=== PATIENT | female | born 1985 | race Caucasian/White ===

== ENCOUNTER 2017-05-05 11:12 | Inpatient (IN) | payer OTHER, SELFPAY ==
[2017-05-05 11:14] VITALS: BP 161/91; PULSE 91; RESP 17; TEMP 37.1; O2SAT 95; BMI 75.6
--- NOTE | 2017-05-05 12:03 | EKG12_ITS ---
Test Reason : Blood Pressure : / mmHG Vent. Rate : 085 BPM Atrial Rate : 085 BPM P-R Int : 136 ms QRS Dur : 102 ms QT Int : 376 ms P-R-T Axes : -11 057 -09 degrees QTc Int : 447 ms Normal sinus rhythm Nonspecific ST and T wave abnormality Abnormal ECG Confirmed by BALTA GRANT, KARL ([id number]), film or videotape editor JIM PADILLA ([id number] on 05/10/2017 3:21:04 PM Referred By: KAY Confirmed By:KARL GIFFORD MD
--- NOTE | 2017-05-05 12:05 | VDLE_ITS ---
Reason For Study: SWELLING RIGHT GSV is normal. CFV is compressible, spontaneous, phasic, competent and demonstrates normal augmentation. FV is compressible, spontaneous, phasic, competent and demonstrates normal augmentation. POP V is compressible, spontaneous, phasic, competent and demonstrates normal augmentation. T/P Trunk is compressible. Rt PTV and PeroV were compressible distally at ankle. The remainder of the calf veins were not visualized. Procedure Exam performed portable in ED. Technically difficult study due to body habitus/edema. A preliminary report was called and/or faxed to ED. Interpretation Summary Deep veins of the right lower extremity are patent and compressible segmentally. There is no evidence of right lower extremity deep vein thrombosis. Valvular competence appears intact within the proximal deep venous system on the right . The right greater saphenous vein appears patent and compressible segmentally. The proximal and mid- right posterior tibial vein and peroneal vein were not visualized. Ordering Physician: Kimo Nuno Referring Physician: DIANA SHELDON Performed By: Kim Stone, MAYI, RVT
--- NOTE | 2017-05-05 12:07 | ED.VISSUMM ---
- ER Visit Summary Date of Service: 05/05/17 Chief Complaint: Right leg swelling and pain History of Present Illness: The patient is a 31 F who states that on Wednesday she began to feel chilled and have nausea and vomiting. She felt rather fatigued and spent most of the day in bed. Splint does see a small amount of redness on the anterior right leg. Over the next 48 hours it rapidly spread to the point where she needed to be sent home from work. She notes the redness is now circumferential around the leg. The leg is grossly edematous. States that she does not recall any specific injury other than being bit by something about 3 weeks ago on the proximal medial calf area. She states that looked like a small red area that was weeping. Eyes any known fevers. She was seen by her primary care doctor today who was concerned for DVT in addition to the cellulitis because she has had prior DVT PE before. That was while the patient was on oral contraceptives. Physical Examination: Afebrile vital signs are stable Gen: Well-nourished well-developed morbidly obese BMI 75.6 Head: Normocephalic atraumatic Eyes: Perrl EOMI ENT: TMs clear no rhinorrhea moist mucous membranes Neck: Supple no lymphadenopathy no JVD nontender CVS: Regular rate rhythm no murmurs normal S1-S2 Respiratory: No distress clear to auscultation bilaterally chest nontender Abdomen: Soft nontender nondistended normal bowel sounds no masses Back: Nontender Extremity: Right leg is grossly edematous. The right leg is diffusely erythematous with significant warmth. The erythema does not resolve with elevation. There appears to be a healing lesion proximal medial calf. There is a Pierre tattoo on the lateral aspect of the leg that has been there for 12 years with no recent work. I do not see any other breaks in the skin. Skin: Normal color no rash Neuro: alert orientated ?3 CN II-XII intact normal strength sensation reflexes gait cerebellar Psych: Normal affect normal mood Test Results: Duplex ultrasound preliminary reading is negative for DVT. White count is 5.2. Lactic acid 0.7. Emergency Department Course and Treatment: Blood cultures were obtained. Patient received a dose of vancomycin and Zosyn. Our plan is admission given the severity and the rapidity of the cellulitis. Impression: 1. Cellulitis right leg 2. Morbid obesity This note was generated with Dragon dictation software. It may contain incorrect words, spelling, and punctuation that were not noted in review of the chart prior to signing ED Disposition - Plan for ED Patient: Chief Complaint: Cellulitis Referrals: Addy Ugalde MD [Primary Care Provider] -
[2017-05-05 12:42] LABS: Absolute Lymphocyte Count 0.87 X10^3/ul (0.83-4.51); Absolute Neutrophil Count 3.9 X10^3/uL (2.0-7.7); Basophil# 0.01 X10^3/uL; Basophil% 0.2 % (0-1); Hematocrit 31.6 % (37-47); Hemoglobin 9.5 g/dl (12.0-15.0); Lymphocyte # 0.87 X10^3/ul (4.0); Lymphocyte % 16.7 % (19-41); Mean Corp Hgb Conc 30.1 g/gl (32-36); Mean Corpuscular Hgb 23.9 pg (27.0-32.0); Mean Corpuscular Volume 79.4 fL (81-99); Mean Platelet Vol. 10.9 fl (6.2-12.0); Monocyte# 0.43 X10^3/uL; Monocyte% 8.3 % (0-10); Neutrophil # 3.88 X10^3/uL (2.7-7.7); Neutrophil % 74.6 % (47-70); Platelet Count 179 K/mm3 (150-450); RBC Distribution Width CV 16.4 % (11.6-14.6); Red Blood Count 3.98 M/mm3 (4.2-5.4); White Blood Count 5.2 K/mm3 (4.4-11.0)
[2017-05-05 12:44] LABS: International Normalized Ratio 1.2; Prothrombin Time (Protime)PT. 14.5 SECONDS (11.7-14.9)
[2017-05-05 12:45] LABS: POSITIVE COUNT NO; POSITIVE DIFFERENTIAL NO; POSITIVE MORPHOLOGY NO
[2017-05-05 12:46] LABS: Partial Thromboplast Time 40.8 Seconds (24.1-36.2)
[2017-05-05 12:52] LABS: ALB/GLOB Ratio 0.5 RATIO (0.9-2.4); AST(SGOT) 46 U/L (15-37); Alanine Aminotransfer ALT/SGPT 44 U/L (12-78); Albumin, Serum 2.6 g/dL (3.4-5.0); Alkaline Phosphatase 112 U/L (45-117); Anion Gap 7 (5-15); BUN 13 mg/dL (7-18); BUN/Creat Ratio 17.2 RATIO (10-20); Calcium,Total 8.2 mg/dL (8.5-10.1); Chloride 104 mmol/L (98-107); Creatinine, Serum 0.76 mg/dL (0.55-1.02); EST Glomerular Filtration Rate 94 mL/min (>60); Est Glom Filt Rate - Afr Amer 114 mL/min (>60); Globulin 4.8 g/dL (2.2-4.2); Glucose 90 mg/dL (70-110); Protein, Total 7.4 g/dL (6.4-8.2); Sodium Level 136 mmol/L (136-145)
[2017-05-05 12:56] LABS: Pregnancy, Serum, hCG Quali. NEGATIVE Negative (0-9 Nonpreg)
[2017-05-05 12:58] LABS: Lactic Acid 0.7 mmol/L (0.4-2.0)
--- NOTE | 2017-05-05 14:39 | NURSING ---
HOSPITALIST FOR ER DOC
[2017-05-05 15:05] VITALS: BMI 75.6
[2017-05-05 15:06] VITALS: BMI 75.6
[2017-05-05 15:40] VITALS: BP 114/73; PULSE 88; RESP 16; TEMP 37.1; O2SAT 98
--- NOTE | 2017-05-05 16:04 | NURSING ---
MED SURG CELLULITIS RT LEG IMAMURA
[2017-05-05 16:31] VITALS: BMI 75.6
[2017-05-05 17:01] VITALS: BP 124/72; PULSE 95; RESP 18; TEMP 37.2; O2SAT 98
[2017-05-05 17:10] LABS: Erythrocyte Sedimentation Rate 113 mm/hr (0-20)
[2017-05-05] MEDS: oxyCODONE 5 MG Tablet PO (17:22)
[2017-05-05 17:26] LABS: Bedside Glucose 110 mg/dL (70-110)
--- NOTE | 2017-05-05 17:54 | PCM.HP.STD ---
Problem List (1) Cellulitis of leg without foot, right Status: Acute (2) Anxiety and depression Status: Chronic (3) Obesity Status: Chronic Qualifiers: Obesity type: unspecified obesity type Obesity classification: adult class 3 (BMI >= 40) Body mass index: BMI 70 or greater History of Present Illness Date of Admission: 05/05/17 Chief Complaint: leg pain, right lower leg. Patient is a 31 years old female who presents with redness of right lower leg, worsening over 4 days. The redness was in the front area initially, but it is involving whole circumference, with burning pain. She denied of any fever or chills, and has no drainage. She has history of pulmonary emboli associated with oral contraceptive. Ultrasound of leg was negative for DVT. She has no history of diabetes, and no known injury to the leg. 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 Patient denied of any profound fatigue. HEENT: Unremarkable. Patient denied of any dizziness, chronic headache, blurred vision, double vision, dry mouth, or nasal congestion. CV/respiratory: There is no exertional shortness of breath, chest pain, palpitation, wheezing, cough, claudication, cold feet, or peripheral edema. GI: Patient denied any abdominal pain, nausea, vomiting, diarrhea, constipation, melena, or hematochezia. : Patient denied any significant urinary symptoms. Neurology: Unremarkable. There is no history of seizure as an adult. Psychological: Unremarkable. ?. Endocrine: Unremarkable. SKIN: see HPI. Musculoskeletal: Unremarkable. VTE Information - Inpt Only VTE Present on Admission: No VTE Mechan Device Prophylaxis: None VTE Pharm Prophylaxis ordered?: Yes Patient Problems: Active and Suspected Problems Cellulitis of leg without foot, right (Acute) Objective: In general, patient is a well-nourished and developed adult. HEENT: Head is atraumatic, and normocephalic. Pupils are equal, round, and reactive to light and accommodations. Neck is supple. There is no lymphadenopathy, or thyromegaly. Oral mucosa is pink, and moist. There are no lesions. Heart: Auscultation is normal with regular rhythm and rate. There is no extra heart sounds, or murmurs. S1 and S2 are present. Point of maximal impulse is not displaced. Lungs: Lungs are clear to auscultation bilaterally. There is no wheezing, or crackles. Abdomen:Obese. No obvious mass. Extremities: There is no cyanosis or clubbing. Peripheral pulses are palpable. There is no edema. Skin: Intense erythema with some swelling of lower leg, with sharp demarcation without raised skin. No drainage, bullae or vesicles. Neurological: CN II - XII are intact. Sensory and motor functions are grossly normal with no obvious deficit. Cerebellar functions are within normal range. Gait was not tested. - Physical Exam Vital Signs Temp Pulse Resp BP Pulse Ox 98.9 F 95 18 124/72 H 98 05/05/17 17:01 05/05/17 17:01 05/05/17 17:01 05/05/17 17:01 05/05/17 17:01 Oxygen Delivery Method Room Air Weight: 497 lb 2.278 oz Body Mass Index (BMI) 75.6 POC Glucose 05/05/17 17:17 POC Glucose 110 U/S right lower leg negative for DVT. Assessment/Plan Active and Suspected Problems Cellulitis of leg without foot, right (Acute) Patient is a 31 years old female who presents with redness of right lower leg, worsening over 4 days. The redness was in the front area initially, but it is involving whole circumference, with burning pain. She denied of any fever or chills, and has no drainage. She has history of pulmonary emboli associated with oral contraceptive. Ultrasound of leg was negative for DVT. She has no history of diabetes, and no known injury to the leg. #1 cellulitis, right lower leg. She has no risk factors of MRSA. She received Zosyn and vancomycin in ED. Blood culture obtained. She is afebrile and WBC within normal limits. Cefazolin 1 gram IVPB Q8H. #2 Mood disorder with depression and anxiety. Continue current medications. #3 morbid obesity. VTE prophylaxis: heparin SQ. GI prophylaxis: H2 denis po. She is full code. Disposition: home when stable. Code Visit Inpatient E&M: 42108 Init Hosp L2
[2017-05-05 18:15] LABS: Hemoglobin A1c 5.5 % (4.2-6.3)
[2017-05-05 20:03] VITALS: BP 129/74; PULSE 88; RESP 20; TEMP 37.4; O2SAT 99
[2017-05-05] MEDS: Cefazolin 1 GM/50 ML BAG IV (21:52)
[2017-05-05] MEDS: Famotidine 20 MG Tablet PO (21:53)
[2017-05-05] MEDS: Heparin Injection 5,000 UNITS/ML Syringe 5000 UNITS SC (21:53)
[2017-05-06 02:00] VITALS: BP 111/69; PULSE 98; RESP 20; TEMP 38.1; O2SAT 99
[2017-05-06] MEDS: Ondansetron 4 MG/2 ML Vial IV (02:57)
[2017-05-06] MEDS: 0.9% NaCl Peripheral Flush Adult/Peds IV ×3 (02:57→22:19)
[2017-05-06 05:44] VITALS: TEMP 38.6
[2017-05-06] MEDS: oxyCODONE 5 MG Tablet PO ×2 (05:48→17:28)
[2017-05-06] MEDS: Acetaminophen 325 MG Tablet 650 MG PO ×2 (05:48→17:28)
[2017-05-06] MEDS: Heparin Injection 5,000 UNITS/ML Syringe 5000 UNITS SC ×3 (05:48→22:19)
[2017-05-06] MEDS: Cefazolin 1 GM/50 ML BAG IV (05:48)
[2017-05-06 07:08] LABS: Absolute Lymphocyte Count 1.29 X10^3/ul (0.83-4.51); Absolute Neutrophil Count 3.7 X10^3/uL (2.0-7.7); Basophil# 0.01 X10^3/uL; Basophil% 0.2 % (0-1); Eosinophil# 0.01 X10^3/uL; Eosinophils% 0.2 % (0-5); Hematocrit 32.4 % (37-47); Hemoglobin 9.7 g/dl (12.0-15.0); Lymphocyte # 1.29 X10^3/ul (4.0); Lymphocyte % 22.4 % (19-41); Mean Corp Hgb Conc 29.9 g/gl (32-36); Mean Corpuscular Hgb 23.9 pg (27.0-32.0); Mean Corpuscular Volume 79.8 fL (81-99); Mean Platelet Vol. 11.1 fl (6.2-12.0); Monocyte# 0.75 X10^3/uL; Neutrophil # 3.68 X10^3/uL (2.7-7.7); Neutrophil % 63.9 % (47-70); Platelet Count 227 K/mm3 (150-450); RBC Distribution Width CV 16.7 % (11.6-14.6); RBC Distribution Width SD 48.6 fl (35.1-43.9); Red Blood Count 4.06 M/mm3 (4.2-5.4); White Blood Count 5.8 K/mm3 (4.4-11.0)
[2017-05-06 07:11] LABS: POSITIVE COUNT NO; POSITIVE DIFFERENTIAL NO; POSITIVE MORPHOLOGY NO
[2017-05-06 07:23] VITALS: BP 117/61; PULSE 88; RESP 18; TEMP 37.4; O2SAT 93
[2017-05-06] MEDS: Famotidine 20 MG Tablet PO ×2 (07:27→22:19)
[2017-05-06] MEDS: Ferrous Sulfate 325 MG Tablet PO ×2 (07:27→17:29)
[2017-05-06] MEDS: FLUoxetine 20 MG Capsule PO (07:27)
[2017-05-06 07:30] LABS: Anion Gap 8 (5-15); BUN 12 mg/dL (7-18); BUN/Creat Ratio 15.4 RATIO (10-20); Chloride 103 mmol/L (98-107); Creatinine, Serum 0.78 mg/dL (0.55-1.02); EST Glomerular Filtration Rate 91 mL/min (>60); Est Glom Filt Rate - Afr Amer 110 mL/min (>60); Estimated Creatinine Clearance 104.45 ml/min; Glucose 109 mg/dL (70-110); Potassium 3.3 mmol/L (3.5-5.1); Sodium Level 137 mmol/L (136-145)
--- NOTE | 2017-05-06 08:28 | PCM.PN.HOSP ---
Patient Problems: Active and Suspected Problems Cellulitis of leg without foot, right (Acute) Subjective: Patient is a 31-year-old lady with BMI of 75.6 who presented significant pain and erythema involving the right lower extremity and assessment of cellulitis made admitted to a regular nursing floor where patient has since been managed. 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 SKIN: Described above Vitals/I&O's: Vital Signs Temp Pulse Resp BP Pulse Ox 99.3 F H 88 18 117/61 93 05/06/17 07:23 05/06/17 07:23 05/06/17 07:23 05/06/17 07:23 05/06/17 07:23 Oxygen Delivery Method Room Air Weight: 225.5 kg Body Mass Index (BMI) 75.6 Intake and Output for Last 24 Hours 05/04/17 05/05/17 05/06/17 23:59 23:59 23:59 Intake Total 310 / 310 790.1 / 790.1 Balance 310 / 310 790.1 / 790.1 Laboratory Results 05/05/17 17:17: POC Glucose 110 05/06/17 06:40: WBC 5.8, RBC 4.06 L, Hgb 9.7 L, Hct 32.4 L, MCV 79.8 L, MCH 23.9 L, MCHC 29.9 L, RDW 16.7 H, RDW Differential 48.6 H, Plt Count 227, MPV 11.1, Immature Gran % (Auto) 0.300, Neut % (Auto) 63.9, Lymph % (Auto) 22.4, [place] % (Auto) 13.0 H, Eos % (Auto) 0.2, Baso % (Auto) 0.2, Absolute Neuts (auto) 3.7, Absolute Lymphs (auto) 1.29, Total Counted Not Reportable 05/06/17 06:40: Sodium 137, Potassium 3.3 L, Chloride 103, Carbon Dioxide 26.0, Anion Gap 8, BUN 12, Creatinine 0.78, Estim Creat Clear Calc 104.45, Est GFR (MDRD) Af Amer 110, Est GFR (MDRD) Non-Af 91, BUN/Creatinine Ratio 15.4, Glucose 109, Calcium 8.0 L Current Medications Acetaminophen (Tylenol) 650 mg PO Q6H PRN PRN PRN Reason: Mild Pain (1-3)/Temp > 100.7 F Last Admin: 05/06/17 05:48 Dose: 650 mg Al Hydroxide/Mg Hydroxide (Mylanta Ii) 30 ml PO Q6H PRN PRN PRN Reason: Gastric burning Bupropion HCl (Wellbutrin Xl) 150 mg PO DAILY [facility] Last Admin: 05/06/17 07:27 Dose: 150 mg Dextrose (D50w Syringe) 0 gm IV X1 PRN; Protocol PRN Reason: Hypoglycemia Famotidine (Pepcid) 20 mg PO BID [facility] Last Admin: 05/06/17 07:27 Dose: 20 mg [facility] Last Admin: 05/06/17 07:27 Dose: 325 mg Fluoxetine HCl (Prozac) 20 mg PO DAILY [facility] Last Admin: 05/06/17 07:27 Dose: 20 mg Glucagon () 1 mg IM .X1 PRN PRN Reason: Hypoglycemia Heparin Sodium (Porcine) () 5,000 units SC Q8 [facility] Last Admin: 05/06/17 05:48 Dose: 5,000 units Cefazolin Sodium () 1 gm in 50 mls @ 150 mls/hr IV Q8 [facility] Last Admin: 05/06/17 05:48 Dose: 150 mls/hr Vancomycin HCl 1,500 mg/ (Dextrose) 530 mls @ 250 mls/hr IV X1 THEN RX TO DOSE ONE Stop: 05/06/17 10:33 Magnesium Hydroxide (Milk Of Magnesia) 30 ml PO DAILY PRN PRN PRN Reason: Constipation Nutritional Formula (Lactose Free) (Ensure Enlive) 120 ml PO 4X/DAY [facility] Last Admin: 05/06/17 07:30 Dose: 120 ml Ondansetron HCl (Zofran) 4 mg IV Q8H PRN PRN PRN Reason: NAUSEA Last Admin: 05/06/17 02:57 Dose: 4 mg Oxycodone HCl (Oxyir) 5 - 10 mg PO Q4H PRN PRN PRN Reason: MOD-SEVERE PAIN (4-10/10) Last Admin: 05/06/17 05:48 Dose: 10 mg Sodium Chloride () 5 - 30 ml IV UD PRN PRN Reason: SALINE FLUSH Last Admin: 05/06/17 05:54 Dose: 10 ml Zolpidem Tartrate (Ambien (Generic)) 5 mg PO QHS PRN PRN PRN Reason: INSOMNIA Assessment/Plan Active and Suspected Problems Cellulitis of leg without foot, right (Acute) Patient is a 31-year-old lady with BMI of 75.6 who presented significant pain and erythema involving the right lower extremity and assessment of cellulitis made admitted to a regular nursing floor where patient has since been managed. 1. Severe right lower extremity cellulitis: Patient admitted to the regular nursing floor managed with broad-spectrum antibiotic therapy with cefazolin and vancomycin cultures obtained on admission. Venous duplex obtained on admission was given for DVT. Consult also placed to ID 2. History of DVT oral contraceptive induced 3. Depression with anxiety 4. Morbid obesity with BMI of 75.6 lifestyle modification including weight loss advised. Also did discuss with patient to follow-up PCP for consideration for possible gastric bypass 5. DVT prophylaxis SC heparin Code Visit Inpatient E&M: 50266 Subs Hosp L3
--- NOTE | 2017-05-06 08:32 | PN_ITS ---
Patient Problems: Active and Suspected Problems Cellulitis of leg without foot, right (Acute) Subjective: Patient is a 31-year-old lady with BMI of 75.6 who presented significant pain and erythema involving the right lower extremity and assessment of cellulitis made admitted to a regular nursing floor where patient has since been managed. 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 SKIN: Described above Vitals/I&O's: Vital Signs Temp Pulse Resp BP Pulse Ox 99.3 F H 88 18 117/61 93 05/06/17 07:23 05/06/17 07:23 05/06/17 07:23 05/06/17 07:23 05/06/17 07:23 Oxygen Delivery Method Room Air Weight: 225.5 kg Body Mass Index (BMI) 75.6 Intake and Output for Last 24 Hours 05/04/17 05/05/17 05/06/17 23:59 23:59 23:59 Intake Total 310 / 310 790.1 / 790.1 Balance 310 / 310 790.1 / 790.1 Laboratory Results 05/05/17 17:17: POC Glucose 110 05/06/17 06:40: WBC 5.8, RBC 4.06 L, Hgb 9.7 L, Hct 32.4 L, MCV 79.8 L, MCH 23.9 L, MCHC 29.9 L, RDW 16.7 H, RDW Differential 48.6 H, Plt Count 227, MPV 11.1, Immature Gran % (Auto) 0.300, Neut % (Auto) 63.9, Lymph % (Auto) 22.4, [place] % (Auto) 13.0 H, Eos % (Auto) 0.2, Baso % (Auto) 0.2, Absolute Neuts (auto ) 3.7, Absolute Lymphs (auto) 1.29, Total Counted Not Reportable 05/06/17 06:40: Sodium 137, Potassium 3.3 L, Chloride 103, Carbon Dioxide 26.0, Anion Gap 8, BUN 12, Creatinine 0.78, Estim Creat Clear Calc 104.45, Est GFR ( MDRD) Af Amer 110, Est GFR (MDRD) Non-Af 91, BUN/Creatinine Ratio 15.4, Glucose 109, Calcium 8.0 L Current Medications Acetaminophen (Tylenol) 650 mg PO Q6H PRN PRN PRN Reason: Mild Pain (1-3)/Temp > 100.7 F Last Admin: 05/06/17 05:48 Dose: 650 mg Al Hydroxide/Mg Hydroxide (Mylanta Ii) 30 ml PO Q6H PRN PRN PRN Reason: Gastric burning Bupropion HCl (Wellbutrin Xl) 150 mg PO DAILY [facility] Last Admin: 05/06/17 07:27 Dose: 150 mg Dextrose (D50w Syringe) 0 gm IV X1 PRN; Protocol PRN Reason: Hypoglycemia Famotidine (Pepcid) 20 mg PO BID [facility] Last Admin: 05/06/17 07:27 Dose: 20 mg [facility]ous S[facility]) [facility] Last Admin: 05/06/17 07:27 Dose: 325 mg Fluoxetine HCl (Prozac) 20 mg PO DAILY [facility] Last Admin: 05/06/17 07:27 Dose: 20 mg Glucagon () 1 mg IM .X1 PRN PRN Reason: Hypoglycemia Heparin Sodium (Porcine) () 5,000 units SC Q8 [facility] Last Admin: 05/06/17 05:48 Dose: 5,000 units Cefazolin Sodium () 1 gm in 50 mls @ 150 mls/hr IV Q8 [facility] Last Admin: 05/06/17 05:48 Dose: 150 mls/hr Vancomycin HCl 1,500 mg/ (Dextrose) 530 mls @ 250 mls/hr IV X1 THEN RX TO DOSE ONE Stop: 05/06/17 10:33 Magnesium Hydroxide (Milk Of Magnesia) 30 ml PO DAILY PRN PRN PRN Reason: Constipation Nutritional Formula (Lactose Free) (Ensure Enlive) 120 ml PO 4X/DAY [facility] Last Admin: 05/06/17 07:30 Dose: 120 ml Ondansetron HCl (Zofran) 4 mg IV Q8H PRN PRN PRN Reason: NAUSEA Last Admin: 05/06/17 02:57 Dose: 4 mg Oxycodone HCl (Oxyir) 5 - 10 mg PO Q4H PRN PRN PRN Reason: MOD-SEVERE PAIN (4-10/10) Last Admin: 05/06/17 05:48 Dose: 10 mg Sodium Chloride () 5 - 30 ml IV UD PRN PRN Reason: SALINE FLUSH Last Admin: 05/06/17 05:54 Dose: 10 ml Zolpidem Tartrate (Ambien (Generic)) 5 mg PO QHS PRN PRN PRN Reason: INSOMNIA Assessment/Plan Active and Suspected Problems Cellulitis of leg without foot, right (Acute) Patient is a 31-year-old lady with BMI of 75.6 who presented significant pain and erythema involving the right lower extremity and assessment of cellulitis made admitted to a regular nursing floor where patient has since been managed. 1. Severe right lower extremity cellulitis: Patient admitted to the regular nursing floor managed with broad-spectrum antibiotic therapy with cefazolin and vancomycin cultures obtained on admission. Venous duplex obtained on admission was given for DVT. Consult also placed to ID 2. History of DVT oral contraceptive induced 3. Depression with anxiety 4. Morbid obesity with BMI of 75.6 lifestyle modification including weight loss advised. Also did discuss with patient to follow-up PCP for consideration for possible gastric bypass 5. DVT prophylaxis SC heparin Code Visit Inpatient E&M: 29787 Subs Hosp L3
[2017-05-06 08:54] LABS: Magnesium 2.2 mg/dL (1.6-2.6)
--- NOTE | 2017-05-06 10:16 | CASEMGMT ---
LIN LUCIANO met with patient. Assessment complete, see attached link for complete assessment. Dispo: Home Transition Planning/Care Coordination: Patient was adm for cellulitis and I/D was consulted. LIN LUCIANO will continue to follow patient's hospital course and provide case management interventions should needs arise. Handoff provided to Ant Light RN CM MS2.
--- NOTE | 2017-05-06 10:46 | CON.PCM_ITS ---
Problem List (1) Cellulitis of leg without foot, right Status: Acute Reason for Consult: cellulitis Consulted by: Dr. Dykes History of Present Illness: The patient is a 31 year old F with h/o PE and morbid obesity who presented with RLE progressive redness, warmth, swelling, and pain since 05/02. No inciting events, but she does report spider bite on that leg several weeks ago. No fever or chills. No h/o MRSA. No purulence or drainage. Came to ED, started on vanc and cefazolin, feeling a little better, redness receding. Full ROS Performed and neg except as noted above. - Medical History Past Medical History (Chronic Problems): Chronic Problems Obesity (Chronic) Anxiety and depression (Chronic) Allergies/Adverse Reactions: Allergies No Known Allergies Allergy (Verified 05/05/17 11:13) Home Medications: Ambulatory Orders Medication Instructions Recorded Bupropion HCl [Wellbutrin Xl] 150 mg PO DAILY 03/07/17 Fluoxetine [Prozac] 20 mg PO DAILY 03/07/17 Ferrous Sulfate 325 mg PO BIDCM 05/05/17 - Social History Tobacco Use: non-smoker Vital Signs Temp Pulse Resp BP Pulse Ox 99.3 F H 88 18 117/61 93 05/06/17 07:23 05/06/17 07:23 05/06/17 07:23 05/06/17 07:23 05/06/17 07:23 Oxygen Delivery Method Room Air Weight: 225.5 kg Body Mass Index (BMI) 75.6 Laboratory Tests Past 24 Hrs 05/06/17 05/06/17 05/06/17 06:40 06:40 06:40 WBC 5.8 RBC 4.06 L Hgb 9.7 L Hct 32.4 L MCV 79.8 L MCH 23.9 L MCHC 29.9 L RDW 16.7 H RDW Differential 48.6 H Plt Count 227 MPV 11.1 Immature Gran % (Auto) 0.300 Neut % (Auto) 63.9 Lymph % (Auto) 22.4 [place] % (Auto) 13.0 H Eos % (Auto) 0.2 Baso % (Auto) 0.2 Absolute Neuts (auto) 3.7 Absolute Lymphs (auto) 1.29 Total Counted Not Reportable Sodium 137 Cancelled Potassium 3.3 L Cancelled Chloride 103 Cancelled Carbon Dioxide 26.0 Cancelled Anion Gap 8 Cancelled BUN 12 Cancelled Creatinine 0.78 Cancelled Estim Creat Clear Calc 104.45 Est GFR (MDRD) Af Amer 110 Cancelled Est GFR (MDRD) Non-Af 91 Cancelled BUN/Creatinine Ratio 15.4 Cancelled Glucose 109 Cancelled Calcium 8.0 L Cancelled Magnesium 2.2 - Other Studies Radiology: [] reviewed Other Studies: [] Route of nutrition/ use of supplements: [] Nutritional Intake: [] IV Site: [] [place] Catheter: [] - Physical Exam General: Alert, Oriented x3, Cooperative, No apparent distress HEENT: Atraumatic, PERRLA, EOMI Neck: Supple, No Nodes Lungs: Clear to auscultation, Normal air movement Cardiovascular: Regular rate, Regular Rhythm Abdomen: Bowel Sounds Present, Soft, Non Tender, Non-Distended, Obese Extremities: Edema Skin: Rash Present - R bledsoe/calf redness and warmth IV Site: Peripheral, without redness Musculoskeletal: No Tenderness to Palpation of Joints or Extremities Neurological: Cranial nerves II-XII grossly intact - Assessment/Plan Antibiotics: [] Assessment/Plan: [] Active and Suspected Problems Cellulitis of leg without foot, right (Acute) - will increase dose of cefazolin and stop vanc. No signs of purulence, so low suspicion for mRSA. Leg improving. Thank you, will follow.
[2017-05-06 13:30] VITALS: BP 118/55; PULSE 87; RESP 18; TEMP 37.1; O2SAT 100
[2017-05-06] MEDS: Cefazolin 2 GM in Syringe IV ×2 (14:14→22:19)
[2017-05-06 19:50] VITALS: BP 127/47; PULSE 88; RESP 16; TEMP 37.3; O2SAT 97
[2017-05-07 01:50] VITALS: BP 123/60; PULSE 87; RESP 18; TEMP 36.9; O2SAT 100
[2017-05-07] MEDS: Acetaminophen 325 MG Tablet 650 MG PO ×2 (04:52→22:23)
[2017-05-07] MEDS: oxyCODONE 5 MG Tablet PO ×3 (04:52→19:20)
[2017-05-07] MEDS: Cefazolin 2 GM in Syringe IV ×3 (06:08→22:12)
[2017-05-07] MEDS: Heparin Injection 5,000 UNITS/ML Syringe 5000 UNITS SC ×3 (06:08→22:23)
[2017-05-07] MEDS: 0.9% NaCl Peripheral Flush Adult/Peds IV ×2 (06:08→22:12)
[2017-05-07 06:33] VITALS: BP 97/65; PULSE 92; RESP 16; TEMP 36.9; O2SAT 97
[2017-05-07 06:55] LABS: Absolute Lymphocyte Count 1.24 X10^3/ul (0.83-4.51); Basophil# 0.01 X10^3/uL; Basophil% 0.2 % (0-1); Eosinophil# 0.04 X10^3/uL; Eosinophils% 0.7 % (0-5); Hemoglobin 9.4 g/dl (12.0-15.0); Lymphocyte # 1.24 X10^3/ul (4.0); Lymphocyte % 20.2 % (19-41); Mean Corp Hgb Conc 30.3 g/gl (32-36); Mean Corpuscular Hgb 24.3 pg (27.0-32.0); Mean Corpuscular Volume 80.1 fL (81-99); Mean Platelet Vol. 11.3 fl (6.2-12.0); Monocyte# 0.81 X10^3/uL; Monocyte% 13.2 % (0-10); Neutrophil % 64.9 % (47-70); Platelet Count 247 K/mm3 (150-450); RBC Distribution Width CV 16.9 % (11.6-14.6); RBC Distribution Width SD 48.7 fl (35.1-43.9); Red Blood Count 3.87 M/mm3 (4.2-5.4); White Blood Count 6.2 K/mm3 (4.4-11.0)
[2017-05-07 07:06] LABS: POSITIVE COUNT NO; POSITIVE DIFFERENTIAL NO; POSITIVE MORPHOLOGY NO
[2017-05-07 07:22] LABS: BUN 9 mg/dL (7-18); Creatinine, Serum 0.63 mg/dL (0.55-1.02); Estimated Creatinine Clearance 129.32 ml/min; Glucose 104 mg/dL (70-110)
[2017-05-07 07:23] LABS: Anion Gap 5 (5-15); BUN/Creat Ratio 14.2 RATIO (10-20); Calcium,Total 7.9 mg/dL (8.5-10.1); Chloride 103 mmol/L (98-107); EST Glomerular Filtration Rate 115 mL/min (>60); Est Glom Filt Rate - Afr Amer 140 mL/min (>60); Potassium 3.5 mmol/L (3.5-5.1); Sodium Level 136 mmol/L (136-145)
--- NOTE | 2017-05-07 08:35 | PCM.PN.HOSP ---
Patient Problems: Active and Suspected Problems Cellulitis of leg without foot, right (Acute) Subjective: Patient seen, remains afebrile however still has significant swelling, erythema and warmth involving the right lower extremity. Was seen in consultation by infectious disease Dr. 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 SKIN: Described above Vitals/I&O's: Vital Signs Temp Pulse Resp BP Pulse Ox 98.5 F 92 16 97/65 97 05/07/17 06:33 05/07/17 06:33 05/07/17 06:33 05/07/17 06:33 05/07/17 06:33 Oxygen Delivery Method Room Air Weight: 225.5 kg Body Mass Index (BMI) 75.6 Intake and Output for Last 24 Hours 05/05/17 05/06/17 05/07/17 23:59 23:59 23:59 Intake Total 310 / 310 2247.1 / 2247.1 940 / 940 Balance 310 / 310 2247.1 / 2247.1 940 / 940 Laboratory Results 05/06/17 06:40: Sodium Cancelled, Potassium Cancelled, Chloride Cancelled, Carbon Dioxide Cancelled, Anion Gap Cancelled, BUN Cancelled, Creatinine Cancelled, Est GFR (MDRD) Af Amer Cancelled, Est GFR (MDRD) Non-Af Cancelled, BUN/Creatinine Ratio Cancelled, Glucose Cancelled, Calcium Cancelled, Magnesium 2.2 05/07/17 06:36: WBC 6.2, RBC 3.87 L, Hgb 9.4 L, Hct 31.0 L, MCV 80.1 L, MCH 24.3 L, MCHC 30.3 L, RDW 16.9 H, RDW Differential 48.7 H, Plt Count 247, MPV 11.3, Immature Gran % (Auto) 0.800, Neut % (Auto) 64.9, Lymph % (Auto) 20.2, [place] % (Auto) 13.2 H, Eos % (Auto) 0.7, Baso % (Auto) 0.2, Absolute Neuts (auto) 4.0, Absolute Lymphs (auto) 1.24, Total Counted Not Reportable 05/07/17 06:36: Sodium 136, Potassium 3.5, Chloride 103, Carbon Dioxide 28.0, Anion Gap 5, BUN 9, Creatinine 0.63, Estim Creat Clear Calc 129.32, Est GFR (MDRD) Af Amer 140, Est GFR (MDRD) Non-Af 115, BUN/Creatinine Ratio 14.2, Glucose 104, Calcium 7.9 L Current Medications Acetaminophen (Tylenol) 650 mg PO Q6H PRN PRN PRN Reason: Mild Pain (1-3)/Temp > 100.7 F Last Admin: 05/07/17 04:52 Dose: 650 mg Al Hydroxide/Mg Hydroxide (Mylanta Ii) 30 ml PO Q6H PRN PRN PRN Reason: Gastric burning Bupropion HCl (Wellbutrin Xl) 150 mg PO DAILY [facility] Last Admin: 05/06/17 07:27 Dose: 150 mg Dextrose (D50w Syringe) 0 gm IV X1 PRN; Protocol PRN Reason: Hypoglycemia Famotidine (Pepcid) 20 mg PO BID [facility] Last Admin: 05/06/17 22:19 Dose: 20 mg [facility]ous Sulf[facility] ([facility] Last Admin: 05/06/17 17:29 Dose: 325 mg Fluoxetine HCl (Prozac) 20 mg PO DAILY [facility] Last Admin: 05/06/17 07:27 Dose: 20 mg Glucagon () 1 mg IM .X1 PRN PRN Reason: Hypoglycemia Heparin Sodium (Porcine) () 5,000 units SC Q8 [facility] Last Admin: 05/07/17 06:08 Dose: 5,000 units Cefazolin Sodium 2 gm/ N/A 20 mls @ 400 mls/hr IV Q8 [facility] Last Admin: 05/07/17 06:08 Dose: 400 mls/hr Magnesium Hydroxide (Milk Of Magnesia) 30 ml PO DAILY PRN PRN PRN Reason: Constipation Ondansetron HCl (Zofran) 4 mg IV Q8H PRN PRN PRN Reason: NAUSEA Last Admin: 05/06/17 02:57 Dose: 4 mg Oxycodone HCl (Oxyir) 5 - 10 mg PO Q4H PRN PRN PRN Reason: MOD-SEVERE PAIN (4-10/10) Last Admin: 05/07/17 04:52 Dose: 5 mg Sodium Chloride () 5 - 30 ml IV UD PRN PRN Reason: SALINE FLUSH Last Admin: 05/07/17 06:08 Dose: 15 ml Zolpidem Tartrate (Ambien (Generic)) 5 mg PO QHS PRN PRN PRN Reason: INSOMNIA Assessment/Plan Active and Suspected Problems Cellulitis of leg without foot, right (Acute) Patient is a 31-year-old lady with BMI of 75.6 who presented significant pain and erythema involving the right lower extremity and assessment of cellulitis made admitted to a regular nursing floor where patient has since been managed. 1. Severe right lower extremity cellulitis: Patient admitted to the regular nursing floor managed with broad-spectrum antibiotic therapy with cefazolin and vancomycin cultures obtained on admission. Venous duplex obtained on admission was given for DVT. Consult also placed to ID. Was seen in consultation by infectious disease Dr. Rosas his notes and recommendations reviewed he discontinue the vancomycin and adjusted the dose of patient cefazolin. 2. History of DVT oral contraceptive induced 3. Depression with anxiety 4. Morbid obesity with BMI of 75.6 lifestyle modification including weight loss advised. Also did discuss with patient to follow-up PCP for consideration for possible gastric bypass 5. DVT prophylaxis SC heparin Code Visit Inpatient E&M: 95181 [facility] Hosp L2
[2017-05-07] MEDS: Ferrous Sulfate 325 MG Tablet PO ×2 (09:11→16:38)
[2017-05-07] MEDS: FLUoxetine 20 MG Capsule PO (09:12)
[2017-05-07] MEDS: Famotidine 20 MG Tablet PO ×2 (09:12→22:18)
[2017-05-07 12:01] VITALS: BP 122/67; PULSE 87; RESP 18; TEMP 36.9; O2SAT 99
--- NOTE | 2017-05-07 15:33 | PN.ID_ITS ---
Patient Problems: Active and Suspected Problems Cellulitis of leg without foot, right (Acute) Subjective: Feeling better, leg less red and sore. No fever, no n/v/d. - Physical Exam General: Alert, Cooperative, No apparent distress Lungs: Clear to auscultation, Normal air movement Cardiovascular: Regular rate, Regular Rhythm Abdomen: Soft, Non Tender, Non-Distended, Obese Skin: Rash Present - R bledsoe/calf redness, swelling, and warmth - improved Vital Signs Temp Pulse Resp BP Pulse Ox 98.5 F 87 18 122/67 H 99 05/07/17 12:01 05/07/17 12:01 05/07/17 12:01 05/07/17 12:01 05/07/17 12:01 Oxygen Delivery Method Room Air Weight: 225.5 kg Body Mass Index (BMI) 75.6 Intake and Output for Last 24 Hours 05/05/17 05/06/17 05/07/17 23:59 23:59 23:59 Intake Total 310 / 310 2247.1 / 2247.1 1527 / 1527 Balance 310 / 310 2247.1 / 2247.1 1527 / 1527 Laboratory Tests Past 24 Hrs 05/07/17 05/07/17 06:36 06:36 WBC 6.2 RBC 3.87 L Hgb 9.4 L Hct 31.0 L MCV 80.1 L MCH 24.3 L MCHC 30.3 L RDW 16.9 H RDW Differential 48.7 H Plt Count 247 MPV 11.3 Immature Gran % (Auto) 0.800 Neut % (Auto) 64.9 Lymph % (Auto) 20.2 [place] % (Auto) 13.2 H Eos % (Auto) 0.7 Baso % (Auto) 0.2 Absolute Neuts (auto) 4.0 Absolute Lymphs (auto) 1.24 Total Counted Not Reportable Sodium 136 Potassium 3.5 Chloride 103 Carbon Dioxide 28.0 Anion Gap 5 BUN 9 Creatinine 0.63 Estim Creat Clear Calc 129.32 Est GFR (MDRD) Af Amer 140 Est GFR (MDRD) Non-Af 115 BUN/Creatinine Ratio 14.2 Glucose 104 Calcium 7.9 L Route of nutrition/ use of supplements: [] Nutritional Intake: [] IV Site: [] [place] Catheter: [] - Assessment/Plan Antibiotics: [] Assessment/Plan: [] Active and Suspected Problems Cellulitis of leg without foot, right (Acute) - improving on cefazolin. Plan on d/c home on po keflex 500mg 4x/day when she is ready. will follow.
[2017-05-07 18:44] VITALS: BP 143/70; PULSE 96; RESP 18; TEMP 38.1; O2SAT 100
[2017-05-07 19:18] VITALS: TEMP 37.5
[2017-05-07 22:30] VITALS: BP 125/67; PULSE 97; RESP 18; TEMP 38.2; O2SAT 94
[2017-05-08 00:41] VITALS: TEMP 37.5
[2017-05-08 04:08] VITALS: BP 133/87; PULSE 89; RESP 18; TEMP 37.2; O2SAT 99
[2017-05-08] MEDS: Cefazolin 2 GM in Syringe IV ×3 (06:52→21:08)
[2017-05-08] MEDS: Heparin Injection 5,000 UNITS/ML Syringe 5000 UNITS SC ×3 (06:52→21:08)
[2017-05-08] MEDS: 0.9% NaCl Peripheral Flush Adult/Peds IV ×3 (06:52→21:08)
[2017-05-08 07:51] LABS: Absolute Lymphocyte Count 1.51 X10^3/ul (0.83-4.51); Absolute Neutrophil Count 5.7 X10^3/uL (2.0-7.7); Basophil# 0.03 X10^3/uL; Basophil% 0.4 % (0-1); Eosinophil# 0.08 X10^3/uL; Hematocrit 32.5 % (37-47); Hemoglobin 9.7 g/dl (12.0-15.0); Lymphocyte # 1.51 X10^3/ul (4.0); Mean Corp Hgb Conc 29.8 g/gl (32-36); Mean Corpuscular Hgb 24.2 pg (27.0-32.0); Mean Platelet Vol. 11.5 fl (6.2-12.0); Monocyte% 10.7 % (0-10); Neutrophil # 5.73 X10^3/uL (2.7-7.7); Neutrophil % 68.1 % (47-70); Platelet Count 265 K/mm3 (150-450); Red Blood Count 4.01 M/mm3 (4.2-5.4); White Blood Count 8.4 K/mm3 (4.4-11.0)
[2017-05-08 07:52] LABS: POSITIVE COUNT NO; POSITIVE DIFFERENTIAL NO; POSITIVE MORPHOLOGY NO
--- NOTE | 2017-05-08 08:22 | PCM.PN.HOSP ---
Patient Problems: Active and Suspected Problems Cellulitis of leg without foot, right (Acute) Subjective: Patient seen still has significant erythema and swelling involving the right lower extremity. She also did spike fever during the night. 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 SKIN: Described above Vitals/I&O's: Vital Signs Temp Pulse Resp BP Pulse Ox 99 F 89 18 133/87 H 99 05/08/17 04:08 05/08/17 04:08 05/08/17 04:08 05/08/17 04:08 05/08/17 04:08 Oxygen Delivery Method Room Air Weight: 225.5 kg Body Mass Index (BMI) 75.6 Intake and Output for Last 24 Hours 05/06/17 05/07/17 05/08/17 23:59 23:59 23:59 Intake Total 2247.1 / 2247.1 1727 / 1727 750 / 750 Balance 2247.1 / 2247.1 1727 / 1727 750 / 750 Laboratory Results 05/08/17 07:24: WBC 8.4, RBC 4.01 L, Hgb 9.7 L, Hct 32.5 L, MCV 81.0, MCH 24.2 L, MCHC 29.8 L, RDW 17.0 H, RDW Differential 50.0 H, Plt Count 265, MPV 11.5, Immature Gran % (Auto) 1.800 H, Neut % (Auto) 68.1, Lymph % (Auto) 18.0 L, [place] % (Auto) 10.7 H, Eos % (Auto) 1.0, Baso % (Auto) 0.4, Absolute Neuts (auto) 5.7, Absolute Lymphs (auto) 1.51, Total Counted Not Reportable 05/08/17 07:24: Sodium Pending, Potassium Pending, Chloride Pending, Carbon Dioxide Pending, Anion Gap Pending, BUN Pending, Creatinine Pending, Est GFR (MDRD) Af Amer Pending, Est GFR (MDRD) Non-Af Pending, BUN/Creatinine Ratio Pending, Glucose Pending, Calcium Pending Current Medications Acetaminophen (Tylenol) 650 mg PO Q6H PRN PRN PRN Reason: Mild Pain (1-3)/Temp > 100.7 F Last Admin: 05/07/17 22:23 Dose: 650 mg Al Hydroxide/Mg Hydroxide (Mylanta Ii) 30 ml PO Q6H PRN PRN PRN Reason: Gastric burning Bupropion HCl (Wellbutrin Xl) 150 mg PO DAILY [facility] Last Admin: 05/07/17 09:12 Dose: 150 mg Dextrose (D50w Syringe) 0 gm IV X1 PRN; Protocol PRN Reason: Hypoglycemia Famotidine (Pepcid) 20 mg PO BID [facility] Last Admin: 05/07/17 22:18 Dose: 20 mg [facility] Last Admin: 05/07/17 16:38 Dose: 325 mg Fluoxetine HCl (Prozac) 20 mg PO DAILY [facility] Last Admin: 05/07/17 09:12 Dose: 20 mg Furosemide (Lasix) 80 mg IV X1 ONE Stop: 05/08/17 08:21 Glucagon () 1 mg IM .X1 PRN PRN Reason: Hypoglycemia Heparin Sodium (Porcine) () 5,000 units SC Q8 [facility] Last Admin: 05/08/17 06:52 Dose: 5,000 units Cefazolin Sodium 2 gm/ N/A 20 mls @ 400 mls/hr IV Q8 [facility] Last Admin: 05/08/17 06:52 Dose: 400 mls/hr Magnesium Hydroxide (Milk Of Magnesia) 30 ml PO DAILY PRN PRN PRN Reason: Constipation Ondansetron HCl (Zofran) 4 mg IV Q8H PRN PRN PRN Reason: NAUSEA Last Admin: 05/06/17 02:57 Dose: 4 mg Oxycodone HCl (Oxyir) 5 - 10 mg PO Q4H PRN PRN PRN Reason: MOD-SEVERE PAIN (4-10/10) Last Admin: 05/07/17 19:20 Dose: 10 mg Sodium Chloride () 5 - 30 ml IV UD PRN PRN Reason: SALINE FLUSH Last Admin: 05/08/17 06:52 Dose: 10 ml Zolpidem Tartrate (Ambien (Generic)) 5 mg PO QHS PRN PRN PRN Reason: INSOMNIA Assessment/Plan Active and Suspected Problems Cellulitis of leg without foot, right (Acute) Patient is a 31-year-old lady with BMI of 75.6 who presented significant pain and erythema involving the right lower extremity and assessment of cellulitis made admitted to a regular nursing floor where patient has since been managed. 1. Severe right lower extremity cellulitis: Patient admitted to the regular nursing floor managed with broad-spectrum antibiotic therapy with cefazolin and vancomycin cultures obtained on admission. Venous duplex obtained on admission was given for DVT. Consult also placed to ID. Was seen in consultation by infectious disease Dr. Rosas his notes and recommendations reviewed he discontinue the vancomycin and adjusted the dose of patient cefazolin. Patient's progress has rather been slow 2. History of DVT oral contraceptive induced 3. Depression with anxiety 4. Morbid obesity with BMI of 75.6 lifestyle modification including weight loss advised. Also did discuss with patient to follow-up PCP for consideration for possible gastric bypass 5. DVT prophylaxis SC heparin Code Visit Inpatient E&M: 41733 Subs Hosp L2
[2017-05-08 08:24] LABS: Anion Gap 8 (5-15); BUN 8 mg/dL (7-18); Calcium,Total 8.1 mg/dL (8.5-10.1); Chloride 100 mmol/L (98-107); Creatinine, Serum 0.67 mg/dL (0.55-1.02); EST Glomerular Filtration Rate 108 mL/min (>60); Est Glom Filt Rate - Afr Amer 131 mL/min (>60); Glucose 111 mg/dL (70-110); Potassium 3.5 mmol/L (3.5-5.1); Sodium Level 138 mmol/L (136-145)
--- NOTE | 2017-05-08 08:28 | PN_ITS ---
Patient Problems: Active and Suspected Problems Cellulitis of leg without foot, right (Acute) Subjective: Patient seen still has significant erythema and swelling involving the right lower extremity. She also did spike fever during the night. 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 SKIN: Described above Vitals/I&O's: Vital Signs Temp Pulse Resp BP Pulse Ox 99 F 89 18 133/87 H 99 05/08/17 04:08 05/08/17 04:08 05/08/17 04:08 05/08/17 04:08 05/08/17 04:08 Oxygen Delivery Method Room Air Weight: 225.5 kg Body Mass Index (BMI) 75.6 Intake and Output for Last 24 Hours 05/06/17 05/07/17 05/08/17 23:59 23:59 23:59 Intake Total 2247.1 / 2247.1 1727 / 1727 750 / 750 Balance 2247.1 / 2247.1 1727 / 1727 750 / 750 Laboratory Results 05/08/17 07:24: WBC 8.4, RBC 4.01 L, Hgb 9.7 L, Hct 32.5 L, MCV 81.0, MCH 24.2 L , MCHC 29.8 L, RDW 17.0 H, RDW Differential 50.0 H, Plt Count 265, MPV 11.5, Immature Gran % (Auto) 1.800 H, Neut % (Auto) 68.1, Lymph % (Auto) 18.0 L, [place] % (Auto) 10.7 H, Eos % (Auto) 1.0, Baso % (Auto) 0.4, Absolute Neuts (auto) 5.7 , Absolute Lymphs (auto) 1.51, Total Counted Not Reportable 05/08/17 07:24: Sodium Pending, Potassium Pending, Chloride Pending, Carbon Dioxide Pending, Anion Gap Pending, BUN Pending, Creatinine Pending, Est GFR ( MDRD) Af Amer Pending, Est GFR (MDRD) Non-Af Pending, BUN/Creatinine Ratio Pending, Glucose Pending, Calcium Pending Current Medications Acetaminophen (Tylenol) 650 mg PO Q6H PRN PRN PRN Reason: Mild Pain (1-3)/Temp > 100.7 F Last Admin: 05/07/17 22:23 Dose: 650 mg Al Hydroxide/Mg Hydroxide (Mylanta Ii) 30 ml PO Q6H PRN PRN PRN Reason: Gastric burning Bupropion HCl (Wellbutrin Xl) 150 mg PO DAILY [facility] Last Admin: 05/07/17 09:12 Dose: 150 mg Dextrose (D50w Syringe) 0 gm IV X1 PRN; Protocol PRN Reason: Hypoglycemia Famotidine (Pepcid) 20 mg PO BID [facility] Last Admin: 05/07/17 22:18 Dose: 20 mg [facility]ous Sulfate ([facility] S[facility]) [facility] Last Admin: 05/07/17 16:38 Dose: 325 mg Fluoxetine HCl (Prozac) 20 mg PO DAILY [facility] Last Admin: 05/07/17 09:12 Dose: 20 mg Furosemide (Lasix) 80 mg IV X1 ONE Stop: 05/08/17 08:21 Glucagon () 1 mg IM .X1 PRN PRN Reason: Hypoglycemia Heparin Sodium (Porcine) () 5,000 units SC Q8 [facility] Last Admin: 05/08/17 06:52 Dose: 5,000 units Cefazolin Sodium 2 gm/ N/A 20 mls @ 400 mls/hr IV Q8 [facility] Last Admin: 05/08/17 06:52 Dose: 400 mls/hr Magnesium Hydroxide (Milk Of Magnesia) 30 ml PO DAILY PRN PRN PRN Reason: Constipation Ondansetron HCl (Zofran) 4 mg IV Q8H PRN PRN PRN Reason: NAUSEA Last Admin: 05/06/17 02:57 Dose: 4 mg Oxycodone HCl (Oxyir) 5 - 10 mg PO Q4H PRN PRN PRN Reason: MOD-SEVERE PAIN (4-10/10) Last Admin: 05/07/17 19:20 Dose: 10 mg Sodium Chloride () 5 - 30 ml IV UD PRN PRN Reason: SALINE FLUSH Last Admin: 05/08/17 06:52 Dose: 10 ml Zolpidem Tartrate (Ambien (Generic)) 5 mg PO QHS PRN PRN PRN Reason: INSOMNIA Assessment/Plan Active and Suspected Problems Cellulitis of leg without foot, right (Acute) Patient is a 31-year-old lady with BMI of 75.6 who presented significant pain and erythema involving the right lower extremity and assessment of cellulitis made admitted to a regular nursing floor where patient has since been managed. 1. Severe right lower extremity cellulitis: Patient admitted to the regular nursing floor managed with broad-spectrum antibiotic therapy with cefazolin and vancomycin cultures obtained on admission. Venous duplex obtained on admission was given for DVT. Consult also placed to ID. Was seen in consultation by infectious disease Dr. Rosas his notes and recommendations reviewed he discontinue the vancomycin and adjusted the dose of patient cefazolin. Patient' s progress has rather been slow 2. History of DVT oral contraceptive induced 3. Depression with anxiety 4. Morbid obesity with BMI of 75.6 lifestyle modification including weight loss advised. Also did discuss with patient to follow-up PCP for consideration for possible gastric bypass 5. DVT prophylaxis SC heparin Code Visit Inpatient E&M: 17998 Subs Hosp L2
[2017-05-08 09:05] VITALS: BP 128/67; PULSE 98; RESP 18; TEMP 37.6; O2SAT 96
[2017-05-08] MEDS: FLUoxetine 20 MG Capsule PO (09:06)
[2017-05-08] MEDS: Famotidine 20 MG Tablet PO ×2 (09:06→21:08)
[2017-05-08] MEDS: Ferrous Sulfate 325 MG Tablet PO ×2 (09:07→17:36)
[2017-05-08] MEDS: Furosemide 100 MG/10 ML Vial 80 MG IV (09:13)
[2017-05-08] MEDS: Acetaminophen 325 MG Tablet 650 MG PO ×2 (13:43→23:14)
[2017-05-08] MEDS: oxyCODONE 5 MG Tablet PO ×3 (13:44→23:13)
[2017-05-08 15:11] VITALS: BP 122/63; PULSE 89; RESP 16; TEMP 37.1; O2SAT 96
[2017-05-08 21:30] VITALS: BP 123/54; PULSE 91; RESP 16; TEMP 38.1; O2SAT 100
[2017-05-09 02:48] VITALS: BP 139/62; PULSE 86; RESP 16; TEMP 36.6; O2SAT 94
[2017-05-09] MEDS: Cefazolin 2 GM in Syringe IV ×3 (05:28→21:10)
[2017-05-09] MEDS: Heparin Injection 5,000 UNITS/ML Syringe 5000 UNITS SC ×3 (05:28→21:11)
[2017-05-09] MEDS: oxyCODONE 5 MG Tablet PO ×4 (05:28→21:08)
[2017-05-09 05:37] VITALS: TEMP 37.5
--- NOTE | 2017-05-09 07:42 | PN_ITS ---
Patient Problems: Active and Suspected Problems Cellulitis of leg without foot, right (Acute) Subjective: Patient seen the swelling involving her right lower extremity down after administration of Lasix the erythema however persistent patient continues to spike fever decision to discharge patient home subsequently deferred Objective: GENERAL: cooperative HEENT: Clear conjunctiva, NECK; supple, normal thyroid, CHEST: Diminished HEART: Regular S1 S2, ABDOMEN: soft, normoactive bowel sounds, RECTAL: deferred EXTREMITIES: Erythema and warmth involving the entire right lower extremity from the knee to the foot 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 SKIN: Described above Vitals/I&O's: Vital Signs Temp Pulse Resp BP Pulse Ox 99.5 F H 86 16 139/62 H 94 05/09/17 05:37 05/09/17 02:48 05/09/17 02:48 05/09/17 02:48 05/09/17 02:48 Oxygen Delivery Method Room Air Weight: 225.5 kg Body Mass Index (BMI) 75.6 Intake and Output for Last 24 Hours 05/07/17 05/08/17 05/09/17 23:59 23:59 23:59 Intake Total 1727 / 1727 1050 / 1050 300 / 300 Balance 1727 / 1727 1050 / 1050 300 / 300 Laboratory Results 05/08/17 07:24: WBC 8.4, RBC 4.01 L, Hgb 9.7 L, Hct 32.5 L, MCV 81.0, MCH 24.2 L , MCHC 29.8 L, RDW 17.0 H, RDW Differential 50.0 H, Plt Count 265, MPV 11.5, Immature Gran % (Auto) 1.800 H, Neut % (Auto) 68.1, Lymph % (Auto) 18.0 L, [place] % (Auto) 10.7 H, Eos % (Auto) 1.0, Baso % (Auto) 0.4, Absolute Neuts (auto) 5.7 , Absolute Lymphs (auto) 1.51, Total Counted Not Reportable 05/08/17 07:24: Sodium 138, Potassium 3.5, Chloride 100, Carbon Dioxide 30.0, Anion Gap 8, BUN 8, Creatinine 0.67, Estim Creat Clear Calc 121.60, Est GFR ( MDRD) Af Amer 131, Est GFR (MDRD) Non-Af 108, BUN/Creatinine Ratio 12.0, Glucose 111 H, Calcium 8.1 L Current Medications Acetaminophen (Tylenol) 650 mg PO Q6H PRN PRN PRN Reason: Mild Pain (1-3)/Temp > 100.7 F Last Admin: 05/08/17 23:14 Dose: 650 mg Al Hydroxide/Mg Hydroxide (Mylanta Ii) 30 ml PO Q6H PRN PRN PRN Reason: Gastric burning Bupropion HCl (Wellbutrin Xl) 150 mg PO DAILY [facility] Last Admin: 05/08/17 09:07 Dose: 150 mg Dextrose (D50w Syringe) 0 gm IV X1 PRN; Protocol PRN Reason: Hypoglycemia Famotidine (Pepcid) 20 mg PO BID [facility] Last Admin: 05/08/17 21:08 Dose: 20 mg Ferrous Sulfate (Ferrous Sulfate) [facility] Last Admin: 05/08/17 17:36 Dose: 325 mg Fluoxetine HCl (Prozac) 20 mg PO DAILY [facility] Last Admin: 05/08/17 09:06 Dose: 20 mg Glucagon () 1 mg IM .X1 PRN PRN Reason: Hypoglycemia Heparin Sodium (Porcine) () 5,000 units SC Q8 [facility] Last Admin: 05/09/17 05:28 Dose: 5,000 units Cefazolin Sodium 2 gm/ N/A 20 mls @ 400 mls/hr IV Q8 [facility] Last Admin: 05/09/17 05:28 Dose: 400 mls/hr Magnesium Hydroxide (Milk Of Magnesia) 30 ml PO DAILY PRN PRN PRN Reason: Constipation Ondansetron HCl (Zofran) 4 mg IV Q8H PRN PRN PRN Reason: NAUSEA Last Admin: 05/06/17 02:57 Dose: 4 mg Oxycodone HCl (Oxyir) 5 - 10 mg PO Q4H PRN PRN PRN Reason: MOD-SEVERE PAIN (4-10/10) Last Admin: 05/09/17 05:28 Dose: 5 mg Sodium Chloride () 5 - 30 ml IV UD PRN PRN Reason: SALINE FLUSH Last Admin: 05/08/17 21:08 Dose: 20 ml Zolpidem Tartrate (Ambien (Generic)) 5 mg PO QHS PRN PRN PRN Reason: INSOMNIA Assessment/Plan Active and Suspected Problems Cellulitis of leg without foot, right (Acute) Patient is a 31-year-old lady with BMI of 75.6 who presented significant pain and erythema involving the right lower extremity and assessment of cellulitis made admitted to a regular nursing floor where patient has since been managed. Patient has been managed with cefazolin, her progress has rather been slow and continues to spike fevers 1. Severe right lower extremity cellulitis: Patient admitted to the regular nursing floor initially managed with broad-spectrum antibiotic therapy with cefazolin and vancomycin cultures obtained on admission. Venous duplex obtained on admission was given for DVT. Consult also placed to ID. Was seen in consultation by infectious disease Dr. Rosas his notes and recommendations reviewed he discontinued the vancomycin and adjusted the dose of patient cefazolin. Patient's progress has rather been slow 2. Bilateral lower extremity edema; lymphedema versus possible right-sided heart failure from her significant obesity patient did receive Lasix ordered echo for evaluation of her EF as well as her right side pressures 3. History of DVT oral contraceptive induced 4. Depression with anxiety 5. Morbid obesity with BMI of 75.6 lifestyle modification including weight loss advised. Also did discuss with patient to follow-up PCP for consideration for possible gastric bypass 6. DVT prophylaxis SC heparin Code Visit Inpatient E&M: 00098 Subs Hosp L2
[2017-05-09 08:00] VITALS: BP 134/70; PULSE 88; RESP 18; TEMP 37.4; O2SAT 95
[2017-05-09] MEDS: Famotidine 20 MG Tablet PO ×2 (09:31→21:09)
[2017-05-09] MEDS: FLUoxetine 20 MG Capsule PO (09:31)
[2017-05-09] MEDS: Ferrous Sulfate 325 MG Tablet PO ×2 (09:31→17:48)
[2017-05-09] MEDS: Furosemide 100 MG/10 ML Vial 80 MG IV (09:31)
[2017-05-09] MEDS: Acetaminophen 325 MG Tablet 650 MG PO ×2 (09:38→17:53)
[2017-05-09] MEDS: 0.9% NaCl Peripheral Flush Adult/Peds IV (13:58)
[2017-05-09 14:00] VITALS: BP 124/67; PULSE 88; RESP 18; TEMP 37.3; O2SAT 99
[2017-05-09 21:00] VITALS: BP 132/72; PULSE 95; RESP 18; TEMP 37.7; O2SAT 95
[2017-05-09 21:19] VITALS: PULSE 95; RESP 18; O2SAT 95
[2017-05-10 03:30] VITALS: BP 114/48; PULSE 94; RESP 18; TEMP 37.7; O2SAT 94
[2017-05-10 03:35] VITALS: PULSE 94
[2017-05-10] MEDS: Ondansetron 4 MG/2 ML Vial IV (03:53)
[2017-05-10] MEDS: oxyCODONE 5 MG Tablet PO ×3 (04:05→14:39)
--- NOTE | 2017-05-10 05:55 | ECHOCS_ITS ---
Reason For Study: CHF Procedure This was a 2D Doppler, Color Flow transthoracic echocardiogram. Contrast injection was performed. The exam was of fair technical quality due to body habitus. Exam performed portable in patient room. Left Ventricle Mild concentric left ventricular hypertrophy. The estimated ejection fraction is 65 %. No regional wall motion abnormalities noted. Right Ventricle Moderately dilated right ventricle. Normal systolic function. Atria The left atrium is moderately enlarged. Normal right atrium. Normal atrial septum. Mitral Valve The mitral valve is structurally normal. No prolapse or stenosis seen. Tricuspid Valve Normal tricuspid valve. Mild (1+) tricuspid valve insufficiency. Right ventricular systolic pressure estimated to be 44 mmHg. Mild pulmonary hypertension. Aortic Valve Normal aortic valve. Trisinus/trileaflet aortic valve. Pulmonic Valve The pulmonic valve is not well visualized. Great Vessels Normal aortic root. Normal arch. Normal inferior vena cava. Inferior vena cava collapse with sniff. Pericardium/Pleural No pericardial effusion. Medication Diluted definity 3ml given slow IV push to enhance endocardial definition. MMode/2D Measurements & Calculations LVIDd: 5.0 cm IVSd: 1.2 cm Ao root diam: 4.1 cm LVIDs: 3.9 cm LVPWd: 1.3 cm LA dimension: 4.1 cm RVDd: 4.7 cm FS: 23.1 % LAV(MOD-bp): 73.7 ml LVAd ap4: 51.2 cm2 EDV(MOD-sp2): 149.3 ml LAV(MOD-bp) Indexed: 24.5 ml/m2 EDV(MOD-sp4): 213.0 ml EF(MOD-sp2): 43.2 % LAV(MOD-sp2): 48.8 ml EDV(sp4-el): 224.9 ml LAV(MOD-sp4): 94.8 ml LVAs ap4: 31.3 cm2 ESV(MOD-sp4): 92.2 ml ESV(sp4-el): 102.7 ml EF(MOD-sp4): 56.7 % EF(sp4-el): 54.4 % SV(MOD-sp4): 120.8 ml SV(MOD-sp2): 64.4 ml SV(sp4-el): 122.2 ml LA A4 area: 28.3 cm2 RA A4 area: 16.4 cm2 Doppler Measurements & Calculations MV E max emigdio: 125.0 cm/sec Ao V2 max: 245.4 cm/sec LV V1 max: 134.7 cm/sec MV A max emigdio: 81.6 cm/sec Ao max P.1 mmHg LV V1 max P.3 mmHg MV E/A: 1.5 PA V2 max: 148.7 cm/sec TR max emigdio: 314.2 cm/sec TR max P.5 mmHg Interpretation Summary Mild concentric left ventricular hypertrophy. The estimated ejection fraction is 65 %. Moderately dilated right ventricle. The left atrium is moderately enlarged. Mild (1+) tricuspid valve insufficiency. Right ventricular systolic pressure estimated to be 44 mmHg. Mild to moderate pulmonary hypertension. The study was technically difficult. Contrast injection was performed. Ordering Physician: Ifeanyi Dykes Referring Physician: DIANA SHELDON Performed By: Kim Stone, MAYI, RVT
[2017-05-10] MEDS: Cefazolin 2 GM in Syringe IV ×2 (06:32→13:29)
[2017-05-10] MEDS: Heparin Injection 5,000 UNITS/ML Syringe 5000 UNITS SC ×2 (06:34→13:30)
[2017-05-10 06:50] LABS: Hematocrit 30.3 % (37-47); Hemoglobin 8.9 g/dl (12.0-15.0); Mean Corp Hgb Conc 29.4 g/gl (32-36); Mean Corpuscular Hgb 23.9 pg (27.0-32.0); Mean Corpuscular Volume 81.5 fL (81-99); Mean Platelet Vol. 10.7 fl (6.2-12.0); Platelet Count 328 K/mm3 (150-450); RBC Distribution Width CV 16.6 % (11.6-14.6); RBC Distribution Width SD 49.8 fl (35.1-43.9); Red Blood Count 3.72 M/mm3 (4.2-5.4); White Blood Count 9.3 K/mm3 (4.4-11.0)
[2017-05-10 06:52] LABS: BUN 9 mg/dL (7-18); Creatinine, Serum 0.59 mg/dL (0.55-1.02); Glucose 108 mg/dL (70-110)
[2017-05-10 06:53] LABS: Anion Gap 6 (5-15); BUN/Creat Ratio 15.3 RATIO (10-20); Calcium,Total 8.1 mg/dL (8.5-10.1); Chloride 97 mmol/L (98-107); EST Glomerular Filtration Rate 126 mL/min (>60); Est Glom Filt Rate - Afr Amer 152 mL/min (>60); Estimated Creatinine Clearance 138.09 ml/min; Magnesium 2.1 mg/dL (1.6-2.6); Potassium 3.6 mmol/L (3.5-5.1); Scan Indicated on CBC? Y/N NO; Sodium Level 135 mmol/L (136-145)
[2017-05-10 07:48] VITALS: BP 131/70; PULSE 96; RESP 20; TEMP 37.2; O2SAT 96
[2017-05-10] MEDS: FLUoxetine 20 MG Capsule PO (07:54)
[2017-05-10] MEDS: Famotidine 20 MG Tablet PO (07:54)
[2017-05-10] MEDS: Ferrous Sulfate 325 MG Tablet PO (07:54)
--- NOTE | 2017-05-10 11:01 | PCM.PN.ID ---
Patient Problems: Active and Suspected Problems Cellulitis of leg without foot, right (Acute) Subjective: Still some fever and nausea. Leg sore. - Physical Exam General: Alert, Cooperative, No apparent distress Lungs: Clear to auscultation, Normal air movement Cardiovascular: Regular rate, Regular Rhythm Abdomen: Soft, Non Tender, Non-Distended, Obese Extremities: Edema Skin: Rash Present - RLE erythema, warmth Vital Signs Temp Pulse Resp BP Pulse Ox 98.9 F 96 20 H 131/70 H 96 05/10/17 07:48 05/10/17 07:48 05/10/17 07:48 05/10/17 07:48 05/10/17 07:48 Oxygen Delivery Method Room Air Weight: 225.5 kg Body Mass Index (BMI) 75.6 Intake and Output for Last 24 Hours 05/08/17 05/09/17 05/10/17 23:59 23:59 23:59 Intake Total 1050 / 1050 1220 / 1220 1946 Output Total 2200 / 2200 Balance 1050 / 1050 -980 / -980 1946 Microbiology Past 72 Hours 05/09/17 14:30 Gram Stain - Final Wound - Aerobic & Anaerobic Swabs Laboratory Tests Past 24 Hrs 05/10/17 05/10/17 06:10 06:10 WBC 9.3 RBC 3.72 L Hgb 8.9 L Hct 30.3 L MCV 81.5 MCH 23.9 L MCHC 29.4 L RDW 16.6 H RDW Differential 49.8 H Plt Count 328 MPV 10.7 Sodium 135 L Potassium 3.6 Chloride 97 L Carbon Dioxide 32.0 Anion Gap 6 BUN 9 Creatinine 0.59 Estim Creat Clear Calc 138.09 Est GFR (MDRD) Af Amer 152 Est GFR (MDRD) Non-Af 126 BUN/Creatinine Ratio 15.3 Glucose 108 Calcium 8.1 L Magnesium 2.1 Route of nutrition/ use of supplements: [] Nutritional Intake: [] IV Site: [] [place] Catheter: [] - Assessment/Plan Antibiotics: [] Assessment/Plan: [] Active and Suspected Problems Cellulitis of leg without foot, right (Acute) - Still with low grade temps, no fever since 05/08. Slow improvement on cefazolin. Echo today. Will add po doxy. will follow.
--- NOTE | 2017-05-10 11:28 | PCM.PN.HOSP ---
Patient Problems: Active and Suspected Problems Cellulitis of leg without foot, right (Acute) Subjective: Still with market erythema of the right lower extremity. Though the patient does state that is doing better than when she initially arrived. Vitals/I&O's: Vital Signs Temp Pulse Resp BP Pulse Ox 37.2 C 96 20 H 131/70 H 96 05/10/17 07:48 05/10/17 07:48 05/10/17 07:48 05/10/17 07:48 05/10/17 07:48 Oxygen Delivery Method Room Air Weight: 225.5 kg Body Mass Index (BMI) 75.6 Intake and Output for Last 24 Hours 05/08/17 05/09/17 05/10/17 23:59 23:59 23:59 Intake Total 1050 / 1050 1220 / 1220 1946 Output Total 2200 / 2200 Balance 1050 / 1050 -980 / -980 1946 General: Alert, Cooperative, No apparent distress, - - Morbidly obese HEENT: Atraumatic, Normocephalic Oral: Moist Mucosa Neck: No Nodes, Thyroid Normal Size and Texture Lungs: Clear to auscultation, Normal air movement, No rhonchi, No wheeze Cardiovascular: Regular rate, Regular Rhythm, Normal S1, Normal S2 Abdomen: Bowel Sounds Present, Soft, Non Tender, Non-Distended Extremities: No Calf Tenderness, Edema Skin: - - Market erythema over the right leg. No overt fluctuance but does have some areas of skin that are more taut than others. Musculoskeletal: No Tenderness to Palpation of Joints or Extremities, No Muscle Wasting Psych/Mental Status: Normal Affect, Appropriate Microbiology Past 72 Hours 05/09/17 14:30 Wound - Aerobic & Anaerobic Swabs Gram Stain - Final 05/09/17 14:30 Wound - Aerobic & Anaerobic Swabs Wound Culture - Preliminary No growth-Final to follow Laboratory Results 05/10/17 06:10: WBC 9.3, RBC 3.72 L, Hgb 8.9 L, Hct 30.3 L, MCV 81.5, MCH 23.9 L, MCHC 29.4 L, RDW 16.6 H, RDW Differential 49.8 H, Plt Count 328, MPV 10.7 05/10/17 06:10: Sodium 135 L, Potassium 3.6, Chloride 97 L, Carbon Dioxide 32.0, Anion Gap 6, BUN 9, Creatinine 0.59, Estim Creat Clear Calc 138.09, Est GFR (MDRD) Af Amer 152, Est GFR (MDRD) Non-Af 126, BUN/Creatinine Ratio 15.3, Glucose 108, Calcium 8.1 L, Magnesium 2.1 Current Medications Acetaminophen (Tylenol) 650 mg PO Q6H PRN PRN PRN Reason: Mild Pain (1-3)/Temp > 100.7 F Last Admin: 05/09/17 17:53 Dose: 650 mg Al Hydroxide/Mg Hydroxide (Mylanta Ii) 30 ml PO Q6H PRN PRN PRN Reason: Gastric burning Bupropion HCl (Wellbutrin Xl) 150 mg PO DAILY [facility] Last Admin: 05/10/17 07:54 Dose: 150 mg Dextrose (D50w Syringe) 0 gm IV X1 PRN; Protocol PRN Reason: Hypoglycemia Doxycycline Monohydrate (Doxycycline) 100 mg PO BID [facility] Famotidine (Pepcid) 20 mg PO BID [facility] Last Admin: 05/10/17 07:54 Dose: 20 mg [facility] Last Admin: 05/10/17 07:54 Dose: 325 mg Fluoxetine HCl (Prozac) 20 mg PO DAILY [facility] Last Admin: 05/10/17 07:54 Dose: 20 mg Glucagon () 1 mg IM .X1 PRN PRN Reason: Hypoglycemia Heparin Sodium (Porcine) () 5,000 units SC Q8 [facility] Last Admin: 05/10/17 06:34 Dose: 5,000 units Cefazolin Sodium 2 gm/ N/A 20 mls @ 400 mls/hr IV Q8 [facility] Last Admin: 05/10/17 06:32 Dose: 400 mls/hr Magnesium Hydroxide (Milk Of Magnesia) 30 ml PO DAILY PRN PRN PRN Reason: Constipation Ondansetron HCl (Zofran) 4 mg IV Q8H PRN PRN PRN Reason: NAUSEA Last Admin: 05/10/17 03:53 Dose: 4 mg Oxycodone HCl (Oxyir) 5 - 10 mg PO Q4H PRN PRN PRN Reason: MOD-SEVERE PAIN (4-10/10) Last Admin: 05/10/17 08:19 Dose: 10 mg Potassium [facility] Last Admin: 05/10/17 07:56 Dose: 20 meq Sodium Chloride () 5 - 30 ml IV UD PRN PRN Reason: SALINE FLUSH Last Admin: 05/09/17 13:58 Dose: 10 ml Zolpidem Tartrate (Ambien (Generic)) 5 mg PO QHS PRN PRN PRN Reason: INSOMNIA Assessment/Plan Active and Suspected Problems Cellulitis of leg without foot, right (Acute) 1. Right lower extremity cellulitis Still profoundly red though the patient does endorse that it is doing better. Previous duplex of her right lower extremity was negative. Echo pending Check CT scan of her right leg to see if there is any development of abscess or other signs of worsening infection. Infectious disease has patient on cefazolin as well as oral doxycycline. 2. DVT prophylaxis with heparin. Code Visit Inpatient E&M: 29650 Subs Hosp L2
--- NOTE | 2017-05-10 11:32 | PN_ITS ---
Patient Problems: Active and Suspected Problems Cellulitis of leg without foot, right (Acute) Subjective: Still with market erythema of the right lower extremity. Though the patient does state that is doing better than when she initially arrived. Vitals/I&O's: Vital Signs Temp Pulse Resp BP Pulse Ox 37.2 C 96 20 H 131/70 H 96 05/10/17 07:48 05/10/17 07:48 05/10/17 07:48 05/10/17 07:48 05/10/17 07:48 Oxygen Delivery Method Room Air Weight: 225.5 kg Body Mass Index (BMI) 75.6 Intake and Output for Last 24 Hours 05/08/17 05/09/17 05/10/17 23:59 23:59 23:59 Intake Total 1050 / 1050 1220 / 1220 1946 Output Total 2200 / 2200 Balance 1050 / 1050 -980 / -980 1946 General: Alert, Cooperative, No apparent distress, - - Morbidly obese HEENT: Atraumatic, Normocephalic Oral: Moist Mucosa Neck: No Nodes, Thyroid Normal Size and Texture Lungs: Clear to auscultation, Normal air movement, No rhonchi, No wheeze Cardiovascular: Regular rate, Regular Rhythm, Normal S1, Normal S2 Abdomen: Bowel Sounds Present, Soft, Non Tender, Non-Distended Extremities: No Calf Tenderness, Edema Skin: - - Market erythema over the right leg. No overt fluctuance but does have some areas of skin that are more taut than others. Musculoskeletal: No Tenderness to Palpation of Joints or Extremities, No Muscle Wasting Psych/Mental Status: Normal Affect, Appropriate Microbiology Past 72 Hours 05/09/17 14:30 Wound - Aerobic & Anaerobic Swabs Gram Stain - Final 05/09/17 14:30 Wound - Aerobic & Anaerobic Swabs Wound Culture - Preliminary No growth-Final to follow Laboratory Results 05/10/17 06:10: WBC 9.3, RBC 3.72 L, Hgb 8.9 L, Hct 30.3 L, MCV 81.5, MCH 23.9 L , MCHC 29.4 L, RDW 16.6 H, RDW Differential 49.8 H, Plt Count 328, MPV 10.7 05/10/17 06:10: Sodium 135 L, Potassium 3.6, Chloride 97 L, Carbon Dioxide 32.0 , Anion Gap 6, BUN 9, Creatinine 0.59, Estim Creat Clear Calc 138.09, Est GFR ( MDRD) Af Amer 152, Est GFR (MDRD) Non-Af 126, BUN/Creatinine Ratio 15.3, Glucose 108, Calcium 8.1 L, Magnesium 2.1 Current Medications Acetaminophen (Tylenol) 650 mg PO Q6H PRN PRN PRN Reason: Mild Pain (1-3)/Temp > 100.7 F Last Admin: 05/09/17 17:53 Dose: 650 mg Al Hydroxide/Mg Hydroxide (Mylanta Ii) 30 ml PO Q6H PRN PRN PRN Reason: Gastric burning Bupropion HCl (Wellbutrin Xl) 150 mg PO DAILY [facility] Last Admin: 05/10/17 07:54 Dose: 150 mg Dextrose (D50w Syringe) 0 gm IV X1 PRN; Protocol PRN Reason: Hypoglycemia Doxycycline Monohydrate (Doxycycline) 100 mg PO BID [facility] Famotidine (Pepcid) 20 mg PO BID [facility] Last Admin: 05/10/17 07:54 Dose: 20 mg [facility] Last Admin: 05/10/17 07:54 Dose: 325 mg Fluoxetine HCl (Prozac) 20 mg PO DAILY [facility] Last Admin: 05/10/17 07:54 Dose: 20 mg Glucagon () 1 mg IM .X1 PRN PRN Reason: Hypoglycemia Heparin Sodium (Porcine) () 5,000 units SC Q8 [facility] Last Admin: 05/10/17 06:34 Dose: 5,000 units Cefazolin Sodium 2 gm/ N/A 20 mls @ 400 mls/hr IV Q8 [facility] Last Admin: 05/10/17 06:32 Dose: 400 mls/hr Magnesium Hydroxide (Milk Of Magnesia) 30 ml PO DAILY PRN PRN PRN Reason: Constipation Ondansetron HCl (Zofran) 4 mg IV Q8H PRN PRN PRN Reason: NAUSEA Last Admin: 05/10/17 03:53 Dose: 4 mg Oxycodone HCl (Oxyir) 5 - 10 mg PO Q4H PRN PRN PRN Reason: MOD-SEVERE PAIN (4-10/10) Last Admin: 05/10/17 08:19 Dose: 10 mg Potassium [facility]) [facility] Last Admin: 05/10/17 07:56 Dose: 20 meq Sodium Chloride () 5 - 30 ml IV UD PRN PRN Reason: SALINE FLUSH Last Admin: 05/09/17 13:58 Dose: 10 ml Zolpidem Tartrate (Ambien (Generic)) 5 mg PO QHS PRN PRN PRN Reason: INSOMNIA Assessment/Plan Active and Suspected Problems Cellulitis of leg without foot, right (Acute) 1. Right lower extremity cellulitis Still profoundly red though the patient does endorse that it is doing better. Previous duplex of her right lower extremity was negative. Echo pending Check CT scan of her right leg to see if there is any development of abscess or other signs of worsening infection. Infectious disease has patient on cefazolin as well as oral doxycycline. 2. DVT prophylaxis with heparin. Code Visit Inpatient E&M: 41269 Subs Hosp L2
--- NOTE | 2017-05-10 11:32 | CT_ITS ---
STUDY: RIGHT LEG. RIGHT REASON FOR EXAM: Female, 31 years old. Cellulitis of the right leg following a spider bite. RADIATION DOSAGE (If Supplied By Facility): CTDIvol = ( 15.98 ) mGy, DLP = ( 943.56 ) mGycm. Individualized dose optimization techniques were used for this CT.? TECHNIQUE: Multiple axial tomographic images were obtained from the knee joint down to the ankle joint without intravenous contrast administration. COMPARISON: None. FINDINGS: There is evidence of diffuse skin thickening with increased markings in the subcutaneous fat in keeping with edematous changes. There is a 4.6 cm x 3.5 cm x 6 cm fluid collection along the anterior medial compartment of the midportion of the leg just medial to the tibia. This may represent possible abscess formation. CT/Extremity Lower without Contra IMPRESSION: Diffuse skin thickening and subcutaneous infiltration suggestive of cellulitis with no focal fluid collection as described. Electronically Signed: Orville Richardson MD at 12:33 EST Tel [phone], Service support ,
[2017-05-10] MEDS: Doxycycline 100 MG CAPSULE PO (11:38)
[2017-05-10 13:28] VITALS: BP 134/69; PULSE 94; RESP 18; TEMP 37.8; O2SAT 98
[2017-05-10] MEDS: Acetaminophen 325 MG Tablet 650 MG PO (13:33)
--- NOTE | 2017-05-10 16:10 | PCM.WORK.EX ---
Work/School Excuse Work/School Excuse for:: Patient Please excuse this person from:: Work From: 05/05/17 through: 05/17/17
--- NOTE | 2017-05-10 16:12 | PCM.DC ---
- Discharge Diagnoses Current Active Problems: Current Active and Chronic Problems Cellulitis of leg without foot, right (Acute) Anxiety and depression (Chronic) You will use the following diet at home:: No restrictions Your food should be the consistency of: Regular Your liquids should be the consistency of: Regular/Thin Return to work on:: 05/17/17 - follow up with PCP to see if you need to be off work longer. Weight Bearing Status: Weight bearing as tolerated Keep extremity elevated above heart level: Right Leg Call your doctor if your incision/area has: Continuous Slow Oozing, Sudden Increased Bleeding, Increased Pain/ Swelling Call your doctor if you observe: Fever of 101 or Higher, Shortness of breath Cleanse incision/area with: Soap & Water, Keep Dressing Clean & Dry Allergies/Adverse Reactions: Allergies No Known Allergies Allergy (Verified 05/05/17 11:13) Medications to take at Discharge Bupropion HCl [Wellbutrin Xl] 150 mg PO DAILY 03/07/17 Fluoxetine [Prozac] 20 mg PO DAILY 03/07/17 Ferrous Sulfate 325 mg PO BIDCM 05/05/17 Acetaminophen [Tylenol Tablet] 500 mg PO Q6H PRN PRN tablet 05/10/17 Cephalexin [Keflex] 500 mg PO Q6H #40 cap 05/10/17 Doxycycline 100 mg PO BID #20 cap 05/10/17 Hydrocodone/Acetaminophen [[place] 5-325 Tablet] 1 each PO Q6H PRN #12 tablet 05/10/17 Ibuprofen 600 mg PO Q6H PRN #1 tab 05/10/17 The following prescriptions were given: Doxycycline 100 mg PO BID #20 cap Cephalexin [Keflex] 500 mg PO Q6H #40 cap Hydrocodone/Acetaminophen [[place] 5-325 Tablet] 1 each PO Q6H PRN #12 tablet PRN Reason: Severe Pain (6-10/10) Ibuprofen 600 mg PO Q6H PRN #1 tab PRN Reason: Pain Primary Care Physician: Addy Ugalde MD [Primary Care Provider] - Within 1 Week Proposed Discharge Date: 05/10/17
--- NOTE | 2017-05-10 16:15 | DCINST_ITS ---
- Discharge Diagnoses Current Active Problems: Current Active and Chronic Problems Cellulitis of leg without foot, right (Acute) Anxiety and depression (Chronic) You will use the following diet at home:: No restrictions Your food should be the consistency of: Regular Your liquids should be the consistency of: Regular/Thin Return to work on:: 05/17/17 - follow up with PCP to see if you need to be off work longer. Weight Bearing Status: Weight bearing as tolerated Keep extremity elevated above heart level: Right Leg Call your doctor if your incision/area has: Continuous Slow Oozing, Sudden Increased Bleeding, Increased Pain/ Swelling Call your doctor if you observe: Fever of 101 or Higher, Shortness of breath Cleanse incision/area with: Soap & Water, Keep Dressing Clean & Dry Allergies/Adverse Reactions: Allergies No Known Allergies Allergy (Verified 05/05/17 11:13) Medications to take at Discharge Bupropion HCl [Wellbutrin Xl] 150 mg PO DAILY 03/07/17 Fluoxetine [Prozac] 20 mg PO DAILY 03/07/17 Ferrous Sulfate 325 mg PO BIDCM 05/05/17 Acetaminophen [Tylenol Tablet] 500 mg PO Q6H PRN PRN tablet 05/10/17 Cephalexin [Keflex] 500 mg PO Q6H #40 cap 05/10/17 Doxycycline 100 mg PO BID #20 cap 05/10/17 Hydrocodone/Acetaminophen [[place] 5-325 Tablet] 1 each PO Q6H PRN #12 tablet Ibuprofen 600 mg PO Q6H PRN #1 tab 05/10/17 The following prescriptions were given: Doxycycline 100 mg PO BID #20 cap Cephalexin [Keflex] 500 mg PO Q6H #40 cap Hydrocodone/Acetaminophen [[place] 5-325 Tablet] 1 each PO Q6H PRN #12 tablet PRN Reason: Severe Pain (6-10/10) Ibuprofen 600 mg PO Q6H PRN #1 tab PRN Reason: Pain Primary Care Physician: Addy Ugalde MD [Primary Care Provider] - Within 1 Week Proposed Discharge Date: 05/10/17
--- NOTE | 2017-05-10 16:17 | DS.PCM_ITS ---
Discharge Date and Diagnosis - Problem List Patient Problems: Active and Suspected Problems Cellulitis of leg without foot, right (Acute) Date of Admission: 05/05/17 Date of Discharge: 05/10/17 - Primary Discharge Diagnosis Active and Suspected Problems Cellulitis of leg without foot, right (Acute) - Secondary Discharge Diagnosis Chronic Problems Obesity (Chronic) Anxiety and depression (Chronic) Hospital Course and Treatment Imaging Results: 05/10/17 11:32 CT LE [Extremity Lower without Contra] [CT] Urgent Clinical Impression(s) from Imaging Studies Lower Extremity CT 05/10/17 11:32 IMPRESSION: Diffuse skin thickening and subcutaneous infiltration suggestive of cellulitis with no focal fluid collection as described. Electronically Signed: Orville Richardson MD at 12:33 EST Tel [phone], Service support , Operations: None Procedures: None Summary of Care Provided: The patient is a 31 year old F presents with right lower extremity cellulitis. Patient was started on broad spectrum IV antibiotics. Patient has had a slow improvement in his disease was consulted. Patient had imagings of her leg with ultrasound as well as CAT scan that showed no evidence of any abscess nor necrotizing fasciitis. Infectious disease recommending an additional 10 days of Keflex as well as doxycycline, in addition to the antibiotics that she has received thus far. Patient has morbid obesity and venous stasis which is likely combined fact that her leg has been slow to heal. Still very red. Patient started to keep her leg elevated as much as possible. 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 [] Discharge Diet: No Restrictions Discharge Activity: Return to Normal Activity Return to work on:: 05/17/17 - follow up with PCP to see if you need to be off work longer. Weight Bearing Status: Weight bearing as tolerated Keep extremity elevated above heart level: Right Leg Call your doctor if your incision/area has: Continuous Slow Oozing, Sudden Increased Bleeding, Increased Pain/ Swelling Call your doctor if you observe: Fever of 101 or Higher, Shortness of breath Cleanse incision/area with: Soap & Water, Keep Dressing Clean & Dry Home Medications: Medications to take at Discharge Bupropion HCl [Wellbutrin Xl] 150 mg PO DAILY 03/07/17 Fluoxetine [Prozac] 20 mg PO DAILY 03/07/17 Ferrous Sulfate 325 mg PO BIDCM 05/05/17 Acetaminophen [Tylenol Tablet] 500 mg PO Q6H PRN PRN tablet 05/10/17 Cephalexin [Keflex] 500 mg PO Q6H #40 cap 05/10/17 Doxycycline 100 mg PO BID #20 cap 05/10/17 Hydrocodone/Acetaminophen [[place] 5-325 Tablet] 1 each PO Q6H PRN #12 tablet Ibuprofen 600 mg PO Q6H PRN #1 tab 05/10/17 Following Prescrptions Were Given to Patient: Doxycycline 100 mg PO BID #20 cap Cephalexin [Keflex] 500 mg PO Q6H #40 cap Hydrocodone/Acetaminophen [[place] 5-325 Tablet] 1 each PO Q6H PRN #12 tablet PRN Reason: Severe Pain (6-01/26) Ibuprofen 600 mg PO Q6H PRN #1 tab PRN Reason: Pain Primary Care Physician: Addy Ugalde MD [Primary Care Provider] - Within 1 Week Disposition: Home Minutes spent on discharge:: 35 Patient Condition:: Good Meaningful Use Info Meaningful Use Diagnoses (Choose all that apply): None applicable Code Visit Inpatient E&M: 54043 Disch Hosp
== END 2017-05-10 17:45 | disposition home or self-care (01) | DRG 603 ==
LOC: ED 13:09 → MS2 16:27
PROVIDERS: Internal Medicine; Admitting Provider Hospitalist; Emergency Provider Emergency Medicine; Family Provider Family Medicine; PCP Family Medicine
DX: L03.115 Cellulitis of right lower limb (principal); E66.01 Morbid (severe) obesity due to excess calories; Z68.45 Body mass index [BMI] 70 or greater, adult; I87.8 Other specified disorders of veins; F41.9 Anxiety disorder, unspecified; F32.9 Major depressive disorder, single episode, unspecified; Z86.718 Personal history of other venous thrombosis and embolism
CPT/HCPCS: 36415; 73700; 80048; 80053; 82962; 83036; 83605; 83735; 84484; 84703; 85025; 85027; 85610; 85652; 85730; 87040; 87070; 87205; 93005; 93306; 93971; 97802; 99282; J7040; J7050; Q9957; A4216; C8929; J1940; J2405

== ENCOUNTER 2017-06-16 09:00 | Outpatient (RCR) | payer OTHER, SELFPAY ==
[2017-05-26 11:05] VITALS: BP 143/85; PULSE 79; RESP 18; TEMP 37
--- NOTE | 2017-05-26 11:27 | WC ---
pt has 3 + pitting edema of right foot . pt states wound started 3 weeks ago with spider bite on R post calf.
[2017-05-26 14:22] LABS: Absolute Lymphocyte Count 1.84 X10^3/ul (0.83-4.51); Basophil# 0.04 X10^3/uL; Basophil% 0.6 % (0-1); Hematocrit 31.7 % (37-47); Hemoglobin 9.2 g/dl (12.0-15.0); Lymphocyte # 1.84 X10^3/ul (4.0); Lymphocyte % 27.6 % (19-41); Mean Corpuscular Hgb 23.7 pg (27.0-32.0); Mean Corpuscular Volume 81.5 fL (81-99); Mean Platelet Vol. 10.3 fl (6.2-12.0); Monocyte# 0.55 X10^3/uL; Monocyte% 8.3 % (0-10); Platelet Count 456 K/mm3 (150-450); RBC Distribution Width CV 16.3 % (11.6-14.6); RBC Distribution Width SD 47.7 fl (35.1-43.9); Red Blood Count 3.89 M/mm3 (4.2-5.4); White Blood Count 6.7 K/mm3 (4.4-11.0)
[2017-05-26 14:25] LABS: POSITIVE COUNT NO; POSITIVE DIFFERENTIAL NO; POSITIVE MORPHOLOGY NO
[2017-05-26 14:45] LABS: Hemoglobin A1c 5.6 % (4.2-6.3)
[2017-05-26 14:47] LABS: Prealbumin 20.7 mg/dL (20.0-40.0)
--- NOTE | 2017-05-26 17:46 | HP.PCM_ITS ---
(1) Abscess of left lower leg Status: Acute Current Visit: Yes Code(s): L02.416 - Cutaneous abscess of left lower limb (2) Cellulitis of leg without foot, right Status: Acute Current Visit: Yes Code(s): L03.115 - Cellulitis of right lower limb (3) Obesity Status: Chronic Current Visit: Yes Code(s): E66.9 - Obesity, unspecified History of Present Illness Date of Service: 05/26/17 Chief Complaint: Left lower extremity ulcer and cellulitis. Left lower extremity abscess. History of Wound: Ms. Corona is a 31-year-old with past medical history of pulmonary embolism and mood disorders who was referred to the wound clinic by her primary care physician due to poor healing of her left lower extremity wounds. She reports being in a stable state of health until about 3-4 weeks ago when she initially noted burning and stinging of the left lower extremity and believes she was bitten by probably spider. About 2 weeks after that incident she noted flulike symptoms and subsequent worsening pain and redness of her left lower extremity. She was seen by primary care physician and subsequently referred to the emergency room where she was admitted and managed as a case of left lower extremity cellulitis. Since her discharge she had been followed up by her primary care physician and was wrapping her left lower extremity with gauze and Paul wraps. She states that she was recently given a cream by her PCP however she is unsure of the name. She was on antibiotics during her hospital stay and was discharged on doxycycline and Keflex. Wound was said to have been stable without any significant progression however her mother notes that on Wednesday they noted a purulent discharge from opening in her lower leg. She denies chills, fever, nausea, vomiting or otherwise feeling of unwell Past Medical History Past Medical History: Chronic Problems Anxiety and depression (Chronic) Obesity (Chronic) Surgical History: tonsillectomy, - Allergies/Adverse Reactions: Allergies No Known Allergies Allergy (Verified 05/05/17 11:13) Home Medications: Ambulatory Orders Medication Instructions Recorded Bupropion HCl [Wellbutrin Xl] 150 mg PO DAILY 03/07/17 Fluoxetine [Prozac] 20 mg PO DAILY 03/07/17 Ferrous Sulfate 325 mg PO BIDCM 05/05/17 Acetaminophen [Tylenol Tablet] 500 mg PO Q6H PRN PRN tablet 05/10/17 Cephalexin [Keflex] 500 mg PO Q6H #40 cap 05/10/17 Doxycycline 100 mg PO BID #20 cap 05/10/17 Hydrocodone/Acetaminophen [Biddle 1 each PO Q6H PRN #12 tablet 05/10/17 5-325 Tablet] Ibuprofen 600 mg PO Q6H PRN #1 tab 05/10/17 Furosemide [Lasix] 20 mg PO DAILY 05/26/17 Mupirocin [Bactroban] 1 applic TOPICAL TID 05/26/17 - Family History Maternal No pertinent history Smoking Status: Never smoker Review of Systems Constitutional: Denies: Anorexia, Chills, Fever Eyes: Denies: Pain, Redness HEENT: Denies: Difficulty Hearing, Difficulty Swallowing Cardiovascular: Denies: Chest Pain, Claudication, Chest Tightness Respiratory: Denies: Cough, Hemoptysis Gastrointestinal: Denies: Abdominal Pain, Hematemesis, Vomiting Skin: Denies: Dryness, Jaundice - Physical Exam Vital Signs Temp Pulse Resp BP 98.6 F 79 18 143/85 H 05/26/17 11:05 05/26/17 11:05 05/26/17 11:05 05/26/17 11:05 General: Alert, Oriented x3, Cooperative, No apparent distress HEENT: Atraumatic, Normocephalic Oral: Moist Mucosa Neck: Supple Lungs: Normal air movement Cardiovascular: Regular rate, Regular Rhythm Abdomen: Soft, Non Tender, No Hepato-splenomegaly, Obese Extremities: No cyanosis Skin: Ulcer/ Wound Wound Measurements and Assessment KATHLEEN - Nurse 1 - General Ulcer Measurement Start: 05/26/17 11:05 Freq: Status: Active Protocol: Activity Type Activity Date Activity User E-Sign Co-Sign Detail Recorded Client Recorded Date Recorded By Document 05/26/17 11:05 RB [id number] 05/26/17 11:19 RB 05/26/17 11:05 Wound Center Nurse 1 [Ulcer Assessment Protocol: KATHLEEN.BOZENA.LOC] #2 RLE - Circumfrental -Combined with other wound No -Current Size (cm) - Length 8.5 -Current Size (cm) - Width 3.5 -Current Size (cm) - Depth 0.1 -Total Square Cm 29.75 -Photo Taken No -Tunneling No -Undermining/Tunneling No -Circular Undermining No -Classification - Thickness Full Thickness without Exposed Support Structure -Change in Wound Grade/Stage No Query Text:If change please identify the Stage/Grade in the comment (ie. S2 G3) -Exudate Amt Small (1-33%) -Exudate Type Serosanguineous -Wound Margin Thickened -Granulation Amt Small (1-33%) -Granulation Quality [place] -Slough/Fibrin Yes -Necrosis Amt Large (67-100%) -Necrotic Tissue Type Adherent Slough -Structure Exposed N/A -Texture (Paulina-wound Skin Appearance) Assessed -Moisture (Paulina-wound Skin Appearance Weeping ) -Color (Paulina-wound Skin Appearance) Assessed Erythema Hemosiderin Staining -Temperature (Paulina-wound Skin No Abnormality Appearance) (Pt Warm) -Ulcer Cleansing Wound Cleanser -Foul Odor after Cleansing No -Anesthetic Used 4% Lidocaine Solution #1 RLE Lateral Devi -Combined with other wound No -Current Size (cm) - Length 20 -Current Size (cm) - Width 11 -Current Size (cm) - Depth 2.7 -Total Square Cm 220 -Photo Taken Yes -Tunneling No -Undermining/Tunneling No -Circular Undermining No -Classification - Thickness Full Thickness without Exposed Support Structure -Exudate Amt Medium (34-66%) -Exudate Type Serosanguineous -Wound Margin Thickened -Granulation Amt Small (1-33%) -Granulation Quality [place] -Slough/Fibrin Yes -Necrosis Amt Large (67-100%) -Necrotic Tissue Type Adherent Slough -Structure Exposed N/A -Texture (Paulina-wound Skin Appearance) Localized Edema -Moisture (Paulina-wound Skin Appearance Weeping ) -Color (Paulina-wound Skin Appearance) Erythema Hemosiderin Staining -Temperature (Paulina-wound Skin No Abnormality Appearance) (Pt Warm) -Tenderness on Palpation (Paulina-wound No Skin Appearance) -Ulcer Cleansing Wound Cleanser -Foul Odor after Cleansing No -Anesthetic Used 4% Lidocaine Solution [Edema Assessment] -Lower Limb Edema Present Yes -Right Calf (cm) 67.5 -Right Ankle (cm) 34 -Left Calf (cm) 60.2 -Left Ankle (cm) 32.5 WC - Nurse 2 - General Ulcer CM Notes Start: 05/26/17 11:05 Freq: Status: Active Protocol: Activity Type Activity Date Activity User E-Sign Co-Sign Detail Recorded Client Recorded Date Recorded By Document 05/26/17 12:12 DV [id number] 05/26/17 12:53 DV 05/26/17 12:12 Wound Center Nurse 2 [Procedure/Treatment] #2 RLE - Circumfrental -Time 12:12 -Correct Patient Yes -Correct Side, Site, Position Yes -Correct Procedure Yes -Procedure Performed Yes -Type of Procedure Debridement -Clinical Debridement Subcutaneous -Post Debridement Size (cm) - Length 19.9 -Post Debridement Size (cm) - Width 27.0 -Post Debridement Size (cm) - Depth 0.1 -Total Square Cm 537.30 -Wound/Ulcer Outcome Not Healed -Ulcer Cleansing Rinsed/ Irrigated with Saline -Foul Odor after Cleansing No -Bioengineered Tissue No -Bleeding Controlled with Pressure -Treatment Response Procedure Tolerated Well #1 RLE Lateral Devi -Time 12:17 -Correct Patient Yes -Correct Side, Site, Position Yes -Correct Procedure Yes -Procedure Performed Yes -Type of Procedure Incision & Debridement -Clinical Debridement Subcutaneous Bone -Post Debridement Size (cm) - Length 1.3 -Post Debridement Size (cm) - Width 0.9 -Post Debridement Size (cm) - Depth 2.6 -Total Square Cm 1.17 -Wound/Ulcer Outcome Not Healed -Ulcer Cleansing Rinsed/ Irrigated with Saline -Foul Odor after Cleansing No -Bioengineered Tissue No -Bleeding Controlled with Pressure -Treatment Response Procedure Tolerated Well [See Physician Procedure note for Specifics] Pain Scale: 0-10 Numeric [Pain] -Is Patient Pain Free? Yes Musculoskeletal: No Muscle Wasting Neurological: Cranial nerves II-XII grossly intact Psych/Mental Status: Normal Affect Debridement Note Post-Debridement Measurements/Treatment WC - Nurse 2 - General Ulcer CM Notes Start: 05/26/17 11:05 Freq: Status: Active Protocol: Activity Type Activity Date Activity User E-Sign Co-Sign Detail Recorded Client Recorded Date Recorded By Document 05/26/17 12:12 DV [id number] 05/26/17 12:53 DV 05/26/17 12:12 Wound Center Nurse 2 #2 RLE - Circumfrental -Time 12:12 -Correct Patient Yes -Correct Side, Site, Position Yes -Correct Procedure Yes -Procedure Performed Yes -Type of Procedure Debridement -Clinical Debridement Subcutaneous -Post Debridement Size (cm) - Length 19.9 -Post Debridement Size (cm) - Width 27.0 -Post Debridement Size (cm) - Depth 0.1 -Total Square Cm 537.30 -Wound/Ulcer Outcome Not Healed -Ulcer Cleansing Rinsed/ Irrigated with Saline -Foul Odor after Cleansing No -Bioengineered Tissue No -Bleeding Controlled with Pressure -Treatment Response Procedure Tolerated Well #1 RLE Lateral Devi -Time 12:17 -Correct Patient Yes -Correct Side, Site, Position Yes -Correct Procedure Yes -Procedure Performed Yes -Type of Procedure Incision & Debridement -Clinical Debridement Subcutaneous Bone -Post Debridement Size (cm) - Length 1.3 -Post Debridement Size (cm) - Width 0.9 -Post Debridement Size (cm) - Depth 2.6 -Total Square Cm 1.17 -Wound/Ulcer Outcome Not Healed -Ulcer Cleansing Rinsed/ Irrigated with Saline -Foul Odor after Cleansing No -Bioengineered Tissue No -Bleeding Controlled with Pressure -Treatment Response Procedure Tolerated Well Pain Scale: 0-10 Numeric Is Patient Pain Free? Yes Wound debrided: Left lower extremity circumferential ulcer Wound Grade/Stage: Stage II Type of Debridement: Excisional debridement Anesthesia Used: 4% Lidocaine Solution Depth: Down to and including healthy tissue, in the subcutaneous layer Percentage of wound debrided: 100 Instrument Used: 5mm curette Tissue Removed: Cough, fibrin and devitalized tissue. Severity: Fat Layer Exposed Amount of bleeding with debridement: Mild Bleeding Controlled with: Pressure Patient tolerated procedure well - Additional Wound Wound debrided: Right medial abscess (incision and drainage) Wound Grade/Stage: Stage II. Probes to bone Type of Debridement: Excisional debridement Anesthesia Used: 4% Lidocaine Solution Depth: Down to and including healthy tissue, in the subcutaneous layer, to bone Percentage of wound debrided: 100 Instrument Used: 3mm curette, #15 blade, Forceps Tissue Removed: Thickened purulent material, devitalized subcutaneous tissue. Severity: Fat Layer Exposed Amount of bleeding with debridement: Mild Bleeding Controlled with: Pressure Patient tolerated procedure: Patient tolerated procedure well Assessment/Plan Active Problems Abscess of left lower leg (Acute) Cellulitis of leg without foot, right (Acute) Obesity (Chronic) Assessment: Cellulitis and ulcer of left lower extremity possibly secondary to spider bite. Left medial lower leg abscess formation, probes to bone. Morbid obesity. Plan: Left lower extremity ulcer and abscess formation. Per patient, possibly due to spider bite. No significant drainage while in the hospital however copious amount of purulent drainage from left medial ulcer/hole/abscess. Incision and drainage done as documented above. Depth/probes to bone. Circumferential undermining with the deepest at 11 AM position to about 4 cm. Had been on antibiotics until recently. Also heavy drainage from cellulitic area with significant slough burden. Debridement done as documented above. Cultures of the left medial wound/abscess taken. Prealbumin, CBC and A1c also ordered. Venous studies ordered. Will switch antibiotics to clindamycin 300 mg every 6?1 week. Patient still has significant warmth, erythema and swelling. [place] with Xeroform over circumferential ulcer. Change 2 - 3x daily depending on drainage . Iodoform to abscess cavity. Change twice daily or daily depending on drainage. Mild paul wraps. High-protein diet/ supplements. Avoid ideal standing.. Elevate lower extremity when seated and in bed. Exercise and weight loss recommended. Follow-up in 1 week. This note was generated with [employer] dictation software. It may contain incorrect words, spelling, and punctuation that were not noted in checking the note before signing.
[2017-05-27 15:09] VITALS: BP 150/98; PULSE 80; RESP 20; TEMP 37.9
[2017-06-02 10:48] VITALS: BP 124/70; PULSE 80; RESP 18; TEMP 36.1
--- NOTE | 2017-06-02 12:06 | PCM.WC.PN ---
(1) Abscess of left lower leg Status: Acute Current Visit: Yes Code(s): L02.416 - Cutaneous abscess of left lower limb (2) Cellulitis of leg without foot, right Status: Acute Current Visit: Yes Code(s): L03.115 - Cellulitis of right lower limb (3) Obesity Status: Chronic Current Visit: Yes Code(s): E66.9 - Obesity, unspecified Type of Wound Date of Service: 06/02/17 Chief Complaint: Left lower extremity ulcer and cellulitis. Left lower extremity abscess. History of Wound: Ms. Corona is a 31-year-old with past medical history of pulmonary embolism and mood disorders who was referred to the wound clinic by her primary care physician due to poor healing of her left lower extremity wounds. She reports being in a stable state of health until about 3-4 weeks ago when she initially noted burning and stinging of the left lower extremity and believes she was bitten by probably spider. About 2 weeks after that incident she noted flulike symptoms and subsequent worsening pain and redness of her left lower extremity. She was seen by primary care physician and subsequently referred to the emergency room where she was admitted and managed as a case of left lower extremity cellulitis. Since her discharge she had been followed up by her primary care physician and was wrapping her left lower extremity with gauze and Paul wraps. She states that she was recently given a cream by her PCP however she is unsure of the name. She was on antibiotics during her hospital stay and was discharged on doxycycline and Keflex. Wound was said to have been stable without any significant progression however her mother notes that on Wednesday they noted a purulent discharge from opening in her lower leg. She denies chills, fever, nausea, vomiting or otherwise feeling of unwell Progress of Wound: Improving. - Physical Exam Vital Signs Temp Pulse Resp BP 97 F L 80 18 124/70 H 06/02/17 10:48 06/02/17 10:48 06/02/17 10:48 06/02/17 10:48 General: Alert, Oriented x3, Cooperative, No apparent distress HEENT: Atraumatic, Normocephalic Oral: Moist Mucosa Neck: Supple Lungs: Normal air movement Cardiovascular: Regular rate Extremities: Edema Wound Measurements and Assessment WC - Nurse 1 - General Ulcer Measurement Start: 05/26/17 11:05 Freq: Status: Active Protocol: Activity Type Activity Date Activity User E-Sign Co-Sign Detail Recorded Client Recorded Date Recorded By Document 06/02/17 10:48 RB [id number] 06/02/17 11:05 RB 06/02/17 10:48 Wound Center Nurse 1 [Ulcer Assessment Protocol: WC.WD.LOC] #2 RLE - Circumfrental -Combined with other wound No -Current Size (cm) - Length 10 -Current Size (cm) - Width 52.5 -Current Size (cm) - Depth 0.1 -Total Square Cm 525.0 -Photo Taken No -Epithelialization Medium 34-66% -Tunneling No -Undermining/Tunneling No -Circular Undermining No -Classification - Thickness Full Thickness without Exposed Support Structure -Exudate Amt None Present (0 %) -Wound Margin Distinct, Outline Attached -Granulation Amt Large (67-100%) -Granulation Quality [place] -Slough/Fibrin Yes -Necrosis Amt Small (1-33%) -Necrotic Tissue Type Adherent Slough -Structure Exposed N/A -Texture (Paulina-wound Skin Appearance) Assessed -Moisture (Paulina-wound Skin Appearance Assessed ) Dry/Scaly -Color (Paulina-wound Skin Appearance) Assessed -Temperature (Paulina-wound Skin No Abnormality Appearance) (Pt Warm) -Tenderness on Palpation (Paulina-wound No Skin Appearance) -Ulcer Cleansing Rinsed/ Irrigated with Saline -Foul Odor after Cleansing No -Anesthetic Used 4% Lidocaine Solution #1 RLE Lateral Devi -Combined with other wound No -Current Size (cm) - Length 1.8 -Current Size (cm) - Width 0.9 -Current Size (cm) - Depth 2 -Total Square Cm 1.62 -Photo Taken No -Epithelialization None Present -Tunneling Yes -Tunneling Position (O'clock) 11 -Tunneling Distance (cm) 2.2 -Undermining/Tunneling No -Circular Undermining No -Classification - Thickness Full Thickness without Exposed Support Structure -Change in Wound Grade/Stage No Query Text:If change please identify the Stage/Grade in the comment (ie. S2 G3) -Exudate Amt Medium (34-66%) -Exudate Type Serosanguineous -Wound Margin Distinct, Outline Attached -Granulation Amt Medium (34-66%) -Granulation Quality [place] -Slough/Fibrin Yes -Necrosis Amt Medium (34-66%) -Necrotic Tissue Type Adherent Slough -Texture (Paulina-wound Skin Appearance) Assessed Localized Edema -Moisture (Paulina-wound Skin Appearance Assessed ) -Color (Paulina-wound Skin Appearance) Assessed Erythema -Temperature (Paulina-wound Skin No Abnormality Appearance) (Pt Warm) -Tenderness on Palpation (Paulina-wound No Skin Appearance) -Ulcer Cleansing Rinsed/ Irrigated with Saline -Foul Odor after Cleansing No -Anesthetic Used 4% Lidocaine Solution [Edema Assessment] -Lower Limb Edema Present Yes -Right Calf (cm) 65 -Right Ankle (cm) 30.2 WC - Nurse 2 - General Ulcer CM Notes Start: 05/26/17 11:05 Freq: Status: Active Protocol: Activity Type Activity Date Activity User E-Sign Co-Sign Detail Recorded Client Recorded Date Recorded By Document 06/02/17 11:35 [email or web address] [id number] 06/02/17 11:48 LUCIO 06/02/17 11:35 Wound Center Nurse 2 [Procedure/Treatment] #2 RLE - Circumfrental -Time 11:35 -Correct Patient Yes -Correct Side, Site, Position Yes -Correct Procedure Yes -Procedure Performed No -Clinical Debridement Selective -Wound/Ulcer Outcome Not Healed -Ulcer Cleansing Rinsed/ Irrigated with Saline -Foul Odor after Cleansing No #1 RLE Lateral Devi -Time 11:36 -Correct Patient Yes -Correct Side, Site, Position Yes -Correct Procedure Yes -Procedure Performed Yes -Type of Procedure Debridement -Clinical Debridement Subcutaneous -Post Debridement Size (cm) - Length 1.5 -Post Debridement Size (cm) - Width 0.7 -Post Debridement Size (cm) - Depth 2.0 -Total Square Cm 1.05 -Wound/Ulcer Outcome Not Healed -Ulcer Cleansing Rinsed/ Irrigated with Saline -Foul Odor after Cleansing No -Bioengineered Tissue No -Topical Lidocaine (%) 4 -Bleeding Controlled with Pressure -Treatment Response Procedure Tolerated Well [See Physician Procedure note for Specifics] Pain Scale: 0-10 Numeric [Pain] -Is Patient Pain Free? Yes Musculoskeletal: No Muscle Wasting Neurological: Cranial nerves II-XII grossly intact Psych/Mental Status: Normal Affect Debridement Note Post-Debridement Measurements/Treatment WC - Nurse 2 - General Ulcer CM Notes Start: 05/26/17 11:05 Freq: Status: Active Protocol: Activity Type Activity Date Activity User E-Sign Co-Sign Detail Recorded Client Recorded Date Recorded By Document 05/26/17 12:12 DV [id number] 05/26/17 12:53 DV Document 06/02/17 11:35 JS [id number] 06/02/17 11:48 JS 05/26/17 06/02/17 12:12 11:35 Wound Center Nurse 2 #2 RLE - Circumfrental -Time 12:12 11:35 -Correct Patient Yes Yes -Correct Side, Site, Position Yes Yes -Correct Procedure Yes Yes -Procedure Performed Yes No -Type of Procedure Debridement -Clinical Debridement Subcutaneous Selective -Post Debridement Size (cm) - Length 19.9 -Post Debridement Size (cm) - Width 27.0 -Post Debridement Size (cm) - Depth 0.1 -Total Square Cm 537.30 -Wound/Ulcer Outcome Not Healed Not Healed -Ulcer Cleansing Rinsed/ Rinsed/ Irrigated with Irrigated with Saline Saline -Foul Odor after Cleansing No No -Bioengineered Tissue No -Bleeding Controlled with Pressure -Treatment Response Procedure Tolerated Well #1 RLE Lateral Devi -Time 12:17 11:36 -Correct Patient Yes Yes -Correct Side, Site, Position Yes Yes -Correct Procedure Yes Yes -Procedure Performed Yes Yes -Type of Procedure Incision & Debridement Debridement -Clinical Debridement Subcutaneous Subcutaneous Bone -Post Debridement Size (cm) - Length 1.3 1.5 -Post Debridement Size (cm) - Width 0.9 0.7 -Post Debridement Size (cm) - Depth 2.6 2.0 -Total Square Cm 1.17 1.05 -Wound/Ulcer Outcome Not Healed Not Healed -Ulcer Cleansing Rinsed/ Rinsed/ Irrigated with Irrigated with Saline Saline -Foul Odor after Cleansing No No -Bioengineered Tissue No No -Topical Lidocaine (%) 4 -Bleeding Controlled with Pressure Pressure -Treatment Response Procedure Procedure Tolerated Well Tolerated Well Pain Scale: 0-10 Numeric Is Patient Pain Free? Yes Yes Wound debrided: Right Lower extremity Wound Grade/Stage: Stage 1 Type of Debridement: Selective debridement Anesthesia Used: 4% Lidocaine Solution Depth: Down to and including healthy tissue Percentage of wound debrided: 100 Instrument Used: 5mm curette Tissue Removed: Devitalized tissue Severity: Limited To Skin Breakdown Amount of bleeding with debridement: Mild Bleeding Controlled with: Pressure Patient tolerated procedure well - Additional Wound Wound debrided: Right Lower extremity ( Abscess/Cavity ) Wound Grade/Stage: Stage II Type of Debridement: Excisional debridement Anesthesia Used: 4% Lidocaine Solution Depth: Down to and including healthy tissue, in the subcutaneous layer Percentage of wound debrided: 100 Instrument Used: 5mm curette Tissue Removed: Purulent material, Devitalized tissue. Amount of bleeding with debridement: Mild Bleeding Controlled with: Pressure Patient tolerated procedure: Patient tolerated procedure well Assessment/Plan Active Problems Abscess of left lower leg (Acute) Cellulitis of leg without foot, right (Acute) Obesity (Chronic) Assessment: Cellulitis and ulcer of left lower extremity possibly secondary to spider bite. Left medial lower leg abscess formation, probes to bone. Morbid obesity. Plan: Cellulitic area appears to have significantly improved. Abscess/cavity still with significant purulent substance on debridement. No tenderness. She is currently on levofloxacin as cultures grew Pseudomonas. Wound depths marginally improved. CT scan done during hospital stay with no evidence of osteomyelitis. Will consider repeating as wound progresses or not. Due to persistent drainage and cavity, i believe patient will benefit from a wound Vac.Will start the process. Continue iodoform to cavity and change twice daily. Continue Xeroform to right lower extremity area. Mild paul wraps. High-protein diet/supplements. Avoid idle standing.. Elevate lower extremity when seated and in bed. Exercise and weight loss recommended. Follow-up in 1 week. This note was generated with [employer] dictation software. It may contain incorrect words, spelling, and punctuation that were not noted in checking the note before signing.
--- NOTE | 2017-06-02 12:13 | PN.PCM_ITS ---
(1) Abscess of left lower leg Status: Acute Current Visit: Yes Code(s): L02.416 - Cutaneous abscess of left lower limb (2) Cellulitis of leg without foot, right Status: Acute Current Visit: Yes Code(s): L03.115 - Cellulitis of right lower limb (3) Obesity Status: Chronic Current Visit: Yes Code(s): E66.9 - Obesity, unspecified Type of Wound Date of Service: 06/02/17 Chief Complaint: Left lower extremity ulcer and cellulitis. Left lower extremity abscess. History of Wound: Ms. Corona is a 31-year-old with past medical history of pulmonary embolism and mood disorders who was referred to the wound clinic by her primary care physician due to poor healing of her left lower extremity wounds. She reports being in a stable state of health until about 3-4 weeks ago when she initially noted burning and stinging of the left lower extremity and believes she was bitten by probably spider. About 2 weeks after that incident she noted flulike symptoms and subsequent worsening pain and redness of her left lower extremity. She was seen by primary care physician and subsequently referred to the emergency room where she was admitted and managed as a case of left lower extremity cellulitis. Since her discharge she had been followed up by her primary care physician and was wrapping her left lower extremity with gauze and Paul wraps. She states that she was recently given a cream by her PCP however she is unsure of the name. She was on antibiotics during her hospital stay and was discharged on doxycycline and Keflex. Wound was said to have been stable without any significant progression however her mother notes that on Wednesday they noted a purulent discharge from opening in her lower leg. She denies chills, fever, nausea, vomiting or otherwise feeling of unwell Progress of Wound: Improving. - Physical Exam Vital Signs Temp Pulse Resp BP 97 F L 80 18 124/70 H 06/02/17 10:48 06/02/17 10:48 06/02/17 10:48 06/02/17 10:48 General: Alert, Oriented x3, Cooperative, No apparent distress HEENT: Atraumatic, Normocephalic Oral: Moist Mucosa Neck: Supple Lungs: Normal air movement Cardiovascular: Regular rate Extremities: Edema Wound Measurements and Assessment WC - Nurse 1 - General Ulcer Measurement Start: 05/26/17 11:05 Freq: Status: Active Protocol: Activity Type Activity Date Activity User E-Sign Co-Sign Detail Recorded Client Recorded Date Recorded By Document 06/02/17 10:48 RB [id number] 06/02/17 11:05 RB 06/02/17 10:48 Wound Center Nurse 1 [Ulcer Assessment Protocol: WC.WD.LOC] #2 RLE - Circumfrental -Combined with other wound No -Current Size (cm) - Length 10 -Current Size (cm) - Width 52.5 -Current Size (cm) - Depth 0.1 -Total Square Cm 525.0 -Photo Taken No -Epithelialization Medium 34-66% -Tunneling No -Undermining/Tunneling No -Circular Undermining No -Classification - Thickness Full Thickness without Exposed Support Structure -Exudate Amt None Present (0 %) -Wound Margin Distinct, Outline Attached -Granulation Amt Large (67-100%) -Granulation Quality [place] Red -Slough/Fibrin Yes -Necrosis Amt Small (1-33%) -Necrotic Tissue Type Adherent Slough -Structure Exposed N/A -Texture (Paulina-wound Skin Appearance) Assessed -Moisture (Paulina-wound Skin Appearance Assessed ) Dry/Scaly -Color (Paulina-wound Skin Appearance) Assessed -Temperature (Paulina-wound Skin No Abnormality Appearance) (Pt Warm) -Tenderness on Palpation (Paulina-wound No Skin Appearance) -Ulcer Cleansing Rinsed/ Irrigated with Saline -Foul Odor after Cleansing No -Anesthetic Used 4% Lidocaine Solution #1 RLE Lateral Devi -Combined with other wound No -Current Size (cm) - Length 1.8 -Current Size (cm) - Width 0.9 -Current Size (cm) - Depth 2 -Total Square Cm 1.62 -Photo Taken No -Epithelialization None Present -Tunneling Yes -Tunneling Position (O'clock) 11 -Tunneling Distance (cm) 2.2 -Undermining/Tunneling No -Circular Undermining No -Classification - Thickness Full Thickness without Exposed Support Structure -Change in Wound Grade/Stage No Query Text:If change please identify the Stage/Grade in the comment (ie. S2 G3) -Exudate Amt Medium (34-66%) -Exudate Type Serosanguineous -Wound Margin Distinct, Outline Attached -Granulation Amt Medium (34-66%) -Granulation Quality [place] -Slough/Fibrin Yes -Necrosis Amt Medium (34-66%) -Necrotic Tissue Type Adherent Slough -Texture (Paulina-wound Skin Appearance) Assessed Localized Edema -Moisture (Paulina-wound Skin Appearance Assessed ) -Color (Paulina-wound Skin Appearance) Assessed Erythema -Temperature (Paulina-wound Skin No Abnormality Appearance) (Pt Warm) -Tenderness on Palpation (Paulina-wound No Skin Appearance) -Ulcer Cleansing Rinsed/ Irrigated with Saline -Foul Odor after Cleansing No -Anesthetic Used 4% Lidocaine Solution [Edema Assessment] -Lower Limb Edema Present Yes -Right Calf (cm) 65 -Right Ankle (cm) 30.2 WC - Nurse 2 - General Ulcer CM Notes Start: 05/26/17 11:05 Freq: Status: Active Protocol: Activity Type Activity Date Activity User E-Sign Co-Sign Detail Recorded Client Recorded Date Recorded By Document 06/02/17 11:35 LUCIO [id number] 06/02/17 11:48 LUCIO 06/02/17 11:35 Wound Center Nurse 2 [Procedure/Treatment] #2 RLE - Circumfrental -Time 11:35 -Correct Patient Yes -Correct Side, Site, Position Yes -Correct Procedure Yes -Procedure Performed No -Clinical Debridement Selective -Wound/Ulcer Outcome Not Healed -Ulcer Cleansing Rinsed/ Irrigated with Saline -Foul Odor after Cleansing No #1 RLE Lateral Devi -Time 11:36 -Correct Patient Yes -Correct Side, Site, Position Yes -Correct Procedure Yes -Procedure Performed Yes -Type of Procedure Debridement -Clinical Debridement Subcutaneous -Post Debridement Size (cm) - Length 1.5 -Post Debridement Size (cm) - Width 0.7 -Post Debridement Size (cm) - Depth 2.0 -Total Square Cm 1.05 -Wound/Ulcer Outcome Not Healed -Ulcer Cleansing Rinsed/ Irrigated with Saline -Foul Odor after Cleansing No -Bioengineered Tissue No -Topical Lidocaine (%) 4 -Bleeding Controlled with Pressure -Treatment Response Procedure Tolerated Well [See Physician Procedure note for Specifics] Pain Scale: 0-10 Numeric [Pain] -Is Patient Pain Free? Yes Musculoskeletal: No Muscle Wasting Neurological: Cranial nerves II-XII grossly intact Psych/Mental Status: Normal Affect Debridement Note Post-Debridement Measurements/Treatment WC - Nurse 2 - General Ulcer CM Notes Start: 05/26/17 11:05 Freq: Status: Active Protocol: Activity Type Activity Date Activity User E-Sign Co-Sign Detail Recorded Client Recorded Date Recorded By Document 05/26/17 12:12 DV [id number] 05/26/17 12:53 DV Document 06/02/17 11:35 JS [id number] 06/02/17 11:48 JS 05/26/17 06/02/17 12:12 11:35 Wound Center Nurse 2 #2 RLE - Circumfrental -Time 12:12 11:35 -Correct Patient Yes Yes -Correct Side, Site, Position Yes Yes -Correct Procedure Yes Yes -Procedure Performed Yes No -Type of Procedure Debridement -Clinical Debridement Subcutaneous Selective -Post Debridement Size (cm) - Length 19.9 -Post Debridement Size (cm) - Width 27.0 -Post Debridement Size (cm) - Depth 0.1 -Total Square Cm 537.30 -Wound/Ulcer Outcome Not Healed Not Healed -Ulcer Cleansing Rinsed/ Rinsed/ Irrigated with Irrigated with Saline Saline -Foul Odor after Cleansing No No -Bioengineered Tissue No -Bleeding Controlled with Pressure -Treatment Response Procedure Tolerated Well #1 RLE Lateral Devi -Time 12:17 11:36 -Correct Patient Yes Yes -Correct Side, Site, Position Yes Yes -Correct Procedure Yes Yes -Procedure Performed Yes Yes -Type of Procedure Incision & Debridement Debridement -Clinical Debridement Subcutaneous Subcutaneous Bone -Post Debridement Size (cm) - Length 1.3 1.5 -Post Debridement Size (cm) - Width 0.9 0.7 -Post Debridement Size (cm) - Depth 2.6 2.0 -Total Square Cm 1.17 1.05 -Wound/Ulcer Outcome Not Healed Not Healed -Ulcer Cleansing Rinsed/ Rinsed/ Irrigated with Irrigated with Saline Saline -Foul Odor after Cleansing No No -Bioengineered Tissue No No -Topical Lidocaine (%) 4 -Bleeding Controlled with Pressure Pressure -Treatment Response Procedure Procedure Tolerated Well Tolerated Well Pain Scale: 0-10 Numeric Is Patient Pain Free? Yes Yes Wound debrided: Right Lower extremity Wound Grade/Stage: Stage 1 Type of Debridement: Selective debridement Anesthesia Used: 4% Lidocaine Solution Depth: Down to and including healthy tissue Percentage of wound debrided: 100 Instrument Used: 5mm curette Tissue Removed: Devitalized tissue Severity: Limited To Skin Breakdown Amount of bleeding with debridement: Mild Bleeding Controlled with: Pressure Patient tolerated procedure well - Additional Wound Wound debrided: Right Lower extremity ( Abscess/Cavity ) Wound Grade/Stage: Stage II Type of Debridement: Excisional debridement Anesthesia Used: 4% Lidocaine Solution Depth: Down to and including healthy tissue, in the subcutaneous layer Percentage of wound debrided: 100 Instrument Used: 5mm curette Tissue Removed: Purulent material, Devitalized tissue. Amount of bleeding with debridement: Mild Bleeding Controlled with: Pressure Patient tolerated procedure: Patient tolerated procedure well Assessment/Plan Active Problems Abscess of left lower leg (Acute) Cellulitis of leg without foot, right (Acute) Obesity (Chronic) Assessment: Cellulitis and ulcer of left lower extremity possibly secondary to spider bite. Left medial lower leg abscess formation, probes to bone. Morbid obesity. Plan: Cellulitic area appears to have significantly improved. Abscess/cavity still with significant purulent substance on debridement. No tenderness. She is currently on levofloxacin as cultures grew Pseudomonas. Wound depths marginally improved. CT scan done during hospital stay with no evidence of osteomyelitis. Will consider repeating as wound progresses or not. Due to persistent drainage and cavity, i believe patient will benefit from a wound Vac.Will start the process. Continue iodoform to cavity and change twice daily. Continue Xeroform to right lower extremity area. Mild paul wraps. High- protein diet/supplements. Avoid idle standing.. Elevate lower extremity when seated and in bed. Exercise and weight loss recommended. Follow-up in 1 week. This note was generated with [employer] dictation software. It may contain incorrect words, spelling, and punctuation that were not noted in checking the note before signing.
--- NOTE | 2017-06-07 07:39 | VDLE_ITS ---
Reason For Study: Non-healing wound RIGHT LEFT CFV is compressible, spontaneous, phasic, CFV is compressible, spontaneous, phasic, competent and demonstrates normal competent, and demonstrates normal augmentation. augmentation. FV is compressible, spontaneous, phasic, FV is compressible, spontaneous, phasic, competent and demonstrates normal competent and demonstrates normal augmentation. augmentation. POP V is compressible, spontaneous, phasic, POP V is compressible, spontaneous, phasic, competent and demonstrates normal competent and demonstrates normal augmentation. augmentation. T/P Trunk is compressible. T/P Trunk is compressible. SFJ is competent PTV is compressible. GSV is competent SFJ is competent SSV is competent GSV is competent SSV is competent Calf veins not visualized due to body habitus. PER V not visualized due to body habitus. Procedure Exam performed in department. A preliminary report was called and/or faxed to [facility]. Interpretation Summary Deep veins of the lower extremities are bilaterally patent and compressible segmentally. There is no evidence of deep vein thrombosis on either side. Valvular competence appears intact within the proximal deep venous systems bilaterally. The greater saphenous veins appear bilaterally patent and compressible segmentally. Sapheno-femoral junctions are bilaterally competent . Valvular competence appears to be intact segmentally within the greater saphenous veins bilaterally. Small saphenous veins are patent and competent bilaterally. Deep veins of the calf were not visualized bilaterally due to the patient's body habitus. Ordering Physician: Rosa Trevino Referring Physician: Rosa Trevino Performed By: Phuong Segal RVT
[2017-06-09 11:38] VITALS: BP 148/84; PULSE 90; RESP 20; TEMP 37
--- NOTE | 2017-06-09 18:10 | PN.PCM_ITS ---
(1) Non-pressure ulcer of right lower extremity with fat layer exposed Status: Acute Code(s): L97.912 - Non-pressure chronic ulcer of unspecified part of right lower leg with fat layer exposed (2) Abscess of right lower extremity Status: Acute Code(s): L02.415 - Cutaneous abscess of right lower limb (3) Cellulitis of leg without foot, right Status: Acute Code(s): L03.115 - Cellulitis of right lower limb (4) Obesity Status: Chronic Code(s): E66.9 - Obesity, unspecified Type of Wound Date of Service: 06/09/17 Chief Complaint: Left lower extremity ulcer and cellulitis. Left lower extremity abscess. History of Wound: Ms. Corona is a 31-year-old with past medical history of pulmonary embolism and mood disorders who was referred to the wound clinic by her primary care physician due to poor healing of her left lower extremity wounds. She reports being in a stable state of health until about 3-4 weeks ago when she initially noted burning and stinging of the left lower extremity and believes she was bitten by probably spider. About 2 weeks after that incident she noted flulike symptoms and subsequent worsening pain and redness of her left lower extremity. She was seen by primary care physician and subsequently referred to the emergency room where she was admitted and managed as a case of left lower extremity cellulitis. Since her discharge she had been followed up by her primary care physician and was wrapping her left lower extremity with gauze and Paul wraps. She states that she was recently given a cream by her PCP however she is unsure of the name. She was on antibiotics during her hospital stay and was discharged on doxycycline and Keflex. Wound was said to have been stable without any significant progression however her mother notes that on Wednesday they noted a purulent discharge from opening in her lower leg. She denies chills, fever, nausea, vomiting or otherwise feeling of unwell Progress of Wound: Improving. No new complaints at this time. - Physical Exam Vital Signs Temp Pulse Resp BP 98.6 F 90 20 H 148/84 H 06/09/17 11:38 06/09/17 11:38 06/09/17 11:38 06/09/17 11:38 General: Alert, Oriented x3, Cooperative, No apparent distress HEENT: Atraumatic, Normocephalic Oral: Moist Mucosa Neck: Supple Lungs: Normal air movement Extremities: Edema Skin: Ulcer/ Wound Wound Measurements and Assessment WC - Nurse 1 - General Ulcer Measurement Start: 05/26/17 11:05 Freq: Status: Active Protocol: Activity Type Activity Date Activity User E-Sign Co-Sign Detail Recorded Client Recorded Date Recorded By Document 06/09/17 11:38 RB [id number] 06/09/17 11:48 RB 06/09/17 11:38 Wound Center Nurse 1 [Ulcer Assessment] #2 RLE - Circumfrental -Combined with other wound No -Current Size (cm) - Length 0.1 -Current Size (cm) - Width 0.1 -Current Size (cm) - Depth 0.1 -Total Square Cm 0.01 -Moisture (Paulina-wound Skin Appearance Dry/Scaly ) -Color (Paulina-wound Skin Appearance) Erythema -Ulcer Cleansing Wound Cleanser -Foul Odor after Cleansing No #1 RLE Lateral Devi -Combined with other wound No -Current Size (cm) - Length 1.7 -Current Size (cm) - Width 0.6 -Current Size (cm) - Depth 1.5 -Total Square Cm 1.02 -Epithelialization None Present -Tunneling Yes -Tunneling Position (O'clock) 11 -Tunneling Distance (cm) 4.3 -Undermining/Tunneling No -Exudate Amt Medium (34-66%) -Exudate Type Serosanguineous -Wound Margin Distinct, Outline Attached -Granulation Amt Large (67-100%) -Granulation Quality Red -Slough/Fibrin No -Necrosis Amt None Present (0 %) -Structure Exposed Bone -Texture (Paulina-wound Skin Appearance) Scarring -Moisture (Paulina-wound Skin Appearance Dry/Scaly ) -Color (Paulina-wound Skin Appearance) Erythema -Temperature (Paulina-wound Skin No Abnormality Appearance) (Pt Warm) -Tenderness on Palpation (Paulina-wound No Skin Appearance) -Ulcer Cleansing Rinsed/ Irrigated with Saline -Foul Odor after Cleansing No -Anesthetic Used 4% Lidocaine Solution [Edema Assessment] -Lower Limb Edema Present Yes -Right Calf (cm) 67.5 -Right Ankle (cm) 30 WC - Nurse 2 - General Ulcer CM Notes Start: 05/26/17 11:05 Freq: Status: Active Protocol: Activity Type Activity Date Activity User E-Sign Co-Sign Detail Recorded Client Recorded Date Recorded By Document 06/09/17 12:20 DV [id number] 06/09/17 12:26 DV 06/09/17 12:20 Wound Center Nurse 2 [Procedure/Treatment] #2 RLE - Circumfrental -Time 12:21 -Correct Patient Yes -Correct Side, Site, Position Yes -Procedure Performed No -Post Debridement Size (cm) - Length 0.1 -Post Debridement Size (cm) - Width 0.1 -Post Debridement Size (cm) - Depth 0.1 -Total Square Cm 0.01 -Wound/Ulcer Outcome Healed- Epithelialized #1 RLE Lateral Devi -Time 12:22 -Correct Patient Yes -Correct Side, Site, Position Yes -Correct Procedure Yes -Procedure Performed Yes -Type of Procedure Debridement -Clinical Debridement Subcutaneous -Post Debridement Size (cm) - Length 1.8 -Post Debridement Size (cm) - Width 0.8 -Post Debridement Size (cm) - Depth 1.5 -Total Square Cm 1.44 -Wound/Ulcer Outcome Not Healed -Ulcer Cleansing Rinsed/ Irrigated with Saline -Foul Odor after Cleansing No -Bioengineered Tissue No -Bleeding Controlled with Pressure -Treatment Response Procedure Tolerated Well [See Physician Procedure note for Specifics] Pain Scale: 0-10 Numeric [Pain] -Is Patient Pain Free? Yes Neurological: Cranial nerves II-XII grossly intact Psych/Mental Status: Normal Affect Debridement Note Post-Debridement Measurements/Treatment WC - Nurse 2 - General Ulcer CM Notes Start: 05/26/17 11:05 Freq: Status: Active Protocol: Activity Type Activity Date Activity User E-Sign Co-Sign Detail Recorded Client Recorded Date Recorded By Document 05/26/17 12:12 DV [id number] 05/26/17 12:53 DV Document 06/02/17 11:35 JS [id number] 06/02/17 11:48 JS Document 06/09/17 12:20 DV [id number] 06/09/17 12:26 DV 05/26/17 06/02/17 06/09/17 12:12 11:35 12:20 Wound Center Nurse 2 #2 RLE - Circumfrental -Time 12:12 11:35 12:21 -Correct Patient Yes Yes Yes -Correct Side, Site, Position Yes Yes Yes -Correct Procedure Yes Yes -Procedure Performed Yes No No -Type of Procedure Debridement -Clinical Debridement Subcutaneous Selective -Post Debridement Size (cm) - Length 19.9 0.1 -Post Debridement Size (cm) - Width 27.0 0.1 -Post Debridement Size (cm) - Depth 0.1 0.1 -Total Square Cm 537.30 0.01 -Wound/Ulcer Outcome Not Healed Not Healed Healed- Epithelialized -Ulcer Cleansing Rinsed/ Rinsed/ Irrigated with Irrigated with Saline Saline -Foul Odor after Cleansing No No -Bioengineered Tissue No -Bleeding Controlled with Pressure -Treatment Response Procedure Tolerated Well #1 RLE Lateral Devi -Time 12:17 11:36 12:22 -Correct Patient Yes Yes Yes -Correct Side, Site, Position Yes Yes Yes -Correct Procedure Yes Yes Yes -Procedure Performed Yes Yes Yes -Type of Procedure Incision & Debridement Debridement Debridement -Clinical Debridement Subcutaneous Subcutaneous Subcutaneous Bone -Post Debridement Size (cm) - Length 1.3 1.5 1.8 -Post Debridement Size (cm) - Width 0.9 0.7 0.8 -Post Debridement Size (cm) - Depth 2.6 2.0 1.5 -Total Square Cm 1.17 1.05 1.44 -Wound/Ulcer Outcome Not Healed Not Healed Not Healed -Ulcer Cleansing Rinsed/ Rinsed/ Rinsed/ Irrigated with Irrigated with Irrigated with Saline Saline Saline -Foul Odor after Cleansing No No No -Bioengineered Tissue No No No -Topical Lidocaine (%) 4 -Bleeding Controlled with Pressure Pressure Pressure -Treatment Response Procedure Procedure Procedure Tolerated Well Tolerated Well Tolerated Well Pain Scale: 0-10 Numeric Is Patient Pain Free? Yes Yes Yes Wound debrided: Right Lower Extremity Abscess/Cavity/Ulcer Wound Grade/Stage: Stage II Type of Debridement: Excisional debridement Anesthesia Used: 4% Lidocaine Solution Depth: Down to and including healthy tissue, in the subcutaneous layer Percentage of wound debrided: 100 Instrument Used: 5mm curette Tissue Removed: Slough and Devitalized tissue Severity: Fat Layer Exposed Amount of bleeding with debridement: Mild Bleeding Controlled with: Pressure Patient tolerated procedure well Assessment/Plan Assessment: Cellulitis and ulcer of Right lower extremity possibly secondary to spider bite. Right lower leg abscess/ulcer s/p incision and drainage. Morbid obesity. Plan: Patient continues to show improvement. Posterior ulcerated area has healed. Still however appears to be some persisting cellulitis. Increased erythema and mild differential warmth noted today. No signs of systemic infection. Abscess cavity with reduction in depth and drainage. Debridement of cavity/ulcer done as above. Procedure was well tolerated. Application for wound Vac so far has not been approved however, patient is showing progress. Continue iodoform packing of cavity daily - BID depending on drainage. Venous studies done, no evidence of insufficiency. Sure press to bilateral lower extremity for edema management. Continue Abx for 1 more week due to persisting cellulitis. Will readdress need for a CT scan at her next visit. High-protein diet/supplements. Avoid idle standing.. Elevate lower extremity when seated and in bed. Exercise and weight loss recommended. Follow-up in 1 week. This note was generated with [employer] dictation software. It may contain incorrect words, spelling, and punctuation that were not noted in checking the note before signing.
--- NOTE | 2017-06-09 19:58 | LEAS_ITS ---
Arterial Study - Arterial Study Arterial Study: This is a 31-year-old female with a history of pulmonary embolism and obesity. The patient presents with a chronic nonhealing wound to the right lower extremity. Suspecting the presence of atherosclerotic peripheral arterial occlusive disease, the patient was brought to the noninvasive vascular laboratory at this time for the purpose of bilateral noninvasive lower extremity arterial assessment. Doppler signal assessment was used to evaluate the pulses at ankle level bilaterally. The posterior tibial and dorsalis pedis pulses were triphasic bilaterally. Segmental limb pressures were obtained at ankle level bilaterally. The right ankle pressure, as determined by posterior tibial pulse, was measured at 173 mmHg. The right ankle pressure, as determined by dorsalis pedis pulse, was measured at 165 mmHg. The left ankle pressure, as determined by posterior tibial pulse, was measured at 180 mmHg. The left ankle pressure, as determined by dorsalis pedis pulse, was measured at 167 mmHg. Pulse-volume recordings were obtained bilaterally and second only. Waveform amplitudes appeared to be satisfactory at all levels bilaterally, including calf , ankle, and digital levels. Resting ankle-brachial indices were calculated bilaterally. The resting right ankle-brachial index was calculated to be 1.18. The resting left ankle- brachial index was calculated be 1.22. Impression: Based upon the findings of this resting noninvasive lower extremity arterial study, there is no evidence of significant atherosclerotic peripheral arterial occlusive disease in the lower extremities bilaterally. Triphasic waveforms were noted at ankle level bilaterally. Resting ankle-brachial indices were bilaterally normal. In summary, this represents a normal resting noninvasive lower extremity arterial study bilaterally.
[2017-06-16 09:08] VITALS: BP 140/88; PULSE 88; RESP 18; TEMP 37.4
--- NOTE | 2017-06-16 10:47 | PCM.WC.PN ---
(1) Non-pressure ulcer of right lower extremity with fat layer exposed Status: Chronic Code(s): L97.912 - Non-pressure chronic ulcer of unspecified part of right lower leg with fat layer exposed (2) Abscess of right lower extremity Status: Chronic Code(s): L02.415 - Cutaneous abscess of right lower limb (3) Cellulitis of leg without foot, right Status: Chronic Code(s): L03.115 - Cellulitis of right lower limb (4) Obesity Status: Chronic Code(s): E66.9 - Obesity, unspecified Type of Wound Date of Service: 06/16/17 Chief Complaint: Left lower extremity ulcer and cellulitis. Left lower extremity abscess. History of Wound: Ms. Corona is a 31-year-old with past medical history of pulmonary embolism and mood disorders who was referred to the wound clinic by her primary care physician due to poor healing of her left lower extremity wounds. She reports being in a stable state of health until about 3-4 weeks ago when she initially noted burning and stinging of the left lower extremity and believes she was bitten by probably spider. About 2 weeks after that incident she noted flulike symptoms and subsequent worsening pain and redness of her left lower extremity. She was seen by primary care physician and subsequently referred to the emergency room where she was admitted and managed as a case of left lower extremity cellulitis. Since her discharge she had been followed up by her primary care physician and was wrapping her left lower extremity with gauze and Paul wraps. She states that she was recently given a cream by her PCP however she is unsure of the name. She was on antibiotics during her hospital stay and was discharged on doxycycline and Keflex. Wound was said to have been stable without any significant progression however her mother notes that on Wednesday they noted a purulent discharge from opening in her lower leg. She denies chills, fever, nausea, vomiting or otherwise feeling of unwell Progress of Wound: Improving. No new complaints at this time. - Physical Exam Vital Signs Temp Pulse Resp BP 99.3 F H 88 18 140/88 H 06/16/17 09:08 06/16/17 09:08 06/16/17 09:08 06/16/17 09:08 General: Alert, Oriented x3, Cooperative, No apparent distress HEENT: Atraumatic, Normocephalic Oral: Moist Mucosa Neck: Supple Lungs: Normal air movement Cardiovascular: Regular rate Abdomen: Obese Extremities: No cyanosis, Edema Skin: Ulcer/ Wound Wound Measurements and Assessment WC - Nurse 1 - General Ulcer Measurement Start: 05/26/17 11:05 Freq: Status: Active Protocol: Activity Type Activity Date Activity User E-Sign Co-Sign Detail Recorded Client Recorded Date Recorded By Document 06/16/17 09:08 RB [id number] 06/16/17 09:22 RB 06/16/17 09:08 Wound Center Nurse 1 [Ulcer Assessment] #1 RLE Lateral Devi -Combined with other wound No -Current Size (cm) - Length 1.1 -Current Size (cm) - Width 0.6 -Current Size (cm) - Depth 2 -Total Square Cm 0.66 -Epithelialization Small 1-33% -Tunneling No -Undermining/Tunneling Yes -Undermining/Tunneling Starts (O' 11 clock) -Undermining/Tunneling Ends (O'clock) 11 -Maximum Distance (cm) 3.2 -Circular Undermining No -Classification - Thickness Full Thickness without Exposed Support Structure -Exudate Amt Medium (34-66%) -Exudate Type Serosanguineous -Wound Margin Distinct, Outline Attached -Granulation Amt Medium (34-66%) -Granulation Quality Louann -Slough/Fibrin Yes -Necrosis Amt Small (1-33%) -Necrotic Tissue Type Adherent Slough -Structure Exposed N/A -Texture (Paulina-wound Skin Appearance) Assessed -Moisture (Paulina-wound Skin Appearance Assessed ) -Color (Paulina-wound Skin Appearance) Assessed Erythema -Temperature (Paulina-wound Skin No Abnormality Appearance) (Pt Warm) -Tenderness on Palpation (Paulina-wound No Skin Appearance) -Ulcer Cleansing Rinsed/ Irrigated with Saline -Foul Odor after Cleansing No -Anesthetic Used 4% Lidocaine Solution [Edema Assessment] -Lower Limb Edema Present Yes -Right Calf (cm) 35 -Right Ankle (cm) 68.5 WC - Nurse 2 - General Ulcer CM Notes Start: 05/26/17 11:05 Freq: Status: Active Protocol: Activity Type Activity Date Activity User E-Sign Co-Sign Detail Recorded Client Recorded Date Recorded By Document 06/16/17 09:35 DV [id number] 06/16/17 09:39 DV 06/16/17 09:35 Wound Center Nurse 2 [Procedure/Treatment] #1 RLE Lateral Devi -Time 09:37 -Correct Patient Yes -Correct Side, Site, Position Yes -Correct Procedure Yes -Procedure Performed Yes -Type of Procedure Debridement -Clinical Debridement Subcutaneous -Post Debridement Size (cm) - Length 1.3 -Post Debridement Size (cm) - Width 0.8 -Post Debridement Size (cm) - Depth 2.5 -Total Square Cm 1.04 -Wound/Ulcer Outcome Not Healed -Ulcer Cleansing Rinsed/ Irrigated with Saline -Foul Odor after Cleansing No -Bioengineered Tissue No -Bleeding Controlled with Pressure -Treatment Response Procedure Tolerated Well [See Physician Procedure note for Specifics] Pain Scale: 0-10 Numeric [Pain] -Is Patient Pain Free? Yes Musculoskeletal: No Muscle Wasting Neurological: Cranial nerves II-XII grossly intact Psych/Mental Status: Normal Affect Debridement Note Post-Debridement Measurements/Treatment WC - Nurse 2 - General Ulcer CM Notes Start: 05/26/17 11:05 Freq: Status: Active Protocol: Activity Type Activity Date Activity User E-Sign Co-Sign Detail Recorded Client Recorded Date Recorded By Document 05/26/17 12:12 DV [id number] 05/26/17 12:53 DV Document 06/02/17 11:35 JS [id number] 06/02/17 11:48 JS Document 06/09/17 12:20 DV [id number] 06/09/17 12:26 DV Document 06/16/17 09:35 DV [id number] 06/16/17 09:39 DV 05/26/17 06/02/17 06/09/17 12:12 11:35 12:20 Wound Center Nurse 2 #2 RLE - Circumfrental -Time 12:12 11:35 12:21 -Correct Patient Yes Yes Yes -Correct Side, Site, Position Yes Yes Yes -Correct Procedure Yes Yes -Procedure Performed Yes No No -Type of Procedure Debridement -Clinical Debridement Subcutaneous Selective -Post Debridement Size (cm) - Length 19.9 0.1 -Post Debridement Size (cm) - Width 27.0 0.1 -Post Debridement Size (cm) - Depth 0.1 0.1 -Total Square Cm 537.30 0.01 -Wound/Ulcer Outcome Not Healed Not Healed Healed- Epithelialized -Ulcer Cleansing Rinsed/ Rinsed/ Irrigated with Irrigated with Saline Saline -Foul Odor after Cleansing No No -Bioengineered Tissue No -Bleeding Controlled with Pressure -Treatment Response Procedure Tolerated Well #1 RLE Lateral Devi -Time 12:17 11:36 12:22 -Correct Patient Yes Yes Yes -Correct Side, Site, Position Yes Yes Yes -Correct Procedure Yes Yes Yes -Procedure Performed Yes Yes Yes -Type of Procedure Incision & Debridement Debridement Debridement -Clinical Debridement Subcutaneous Subcutaneous Subcutaneous Bone -Post Debridement Size (cm) - Length 1.3 1.5 1.8 -Post Debridement Size (cm) - Width 0.9 0.7 0.8 -Post Debridement Size (cm) - Depth 2.6 2.0 1.5 -Total Square Cm 1.17 1.05 1.44 -Wound/Ulcer Outcome Not Healed Not Healed Not Healed -Ulcer Cleansing Rinsed/ Rinsed/ Rinsed/ Irrigated with Irrigated with Irrigated with Saline Saline Saline -Foul Odor after Cleansing No No No -Bioengineered Tissue No No No -Topical Lidocaine (%) 4 -Bleeding Controlled with Pressure Pressure Pressure -Treatment Response Procedure Procedure Procedure Tolerated Well Tolerated Well Tolerated Well Pain Scale: 0-10 Numeric Is Patient Pain Free? Yes Yes Yes 06/16/17 09:35 Wound Center Nurse 2 #2 RLE - Circumfrental -Time -Correct Patient -Correct Side, Site, Position -Correct Procedure -Procedure Performed -Type of Procedure -Clinical Debridement -Post Debridement Size (cm) - Length -Post Debridement Size (cm) - Width -Post Debridement Size (cm) - Depth -Total Square Cm -Wound/Ulcer Outcome -Ulcer Cleansing -Foul Odor after Cleansing -Bioengineered Tissue -Bleeding Controlled with -Treatment Response #1 RLE Lateral Devi -Time 09:37 -Correct Patient Yes -Correct Side, Site, Position Yes -Correct Procedure Yes -Procedure Performed Yes -Type of Procedure Debridement -Clinical Debridement Subcutaneous -Post Debridement Size (cm) - Length 1.3 -Post Debridement Size (cm) - Width 0.8 -Post Debridement Size (cm) - Depth 2.5 -Total Square Cm 1.04 -Wound/Ulcer Outcome Not Healed -Ulcer Cleansing Rinsed/ Irrigated with Saline -Foul Odor after Cleansing No -Bioengineered Tissue No -Topical Lidocaine (%) -Bleeding Controlled with Pressure -Treatment Response Procedure Tolerated Well Pain Scale: 0-10 Numeric Is Patient Pain Free? Yes Wound debrided: Right Lower extremity ulcer/cavity/abscess Wound Grade/Stage: Stage II Type of Debridement: Excisional debridement Anesthesia Used: 4% Lidocaine Solution Depth: Down to and including healthy tissue, in the subcutaneous layer Percentage of wound debrided: 100 Instrument Used: 3mm curette Tissue Removed: Slough and Devitalized tissue Severity: Fat Layer Exposed Amount of bleeding with debridement: Mild Bleeding Controlled with: Pressure Patient tolerated procedure well Assessment/Plan Assessment: Cellulitis and ulcer of Right lower extremity possibly secondary to spider bite. Right lower leg abscess/ulcer s/p incision and drainage. Morbid obesity. Plan: Patient continues to show improvement. Posterior ulcerated area stays healed. Tunelling around the 11' O clock position appears to have opened up resulting in a seemingly deeper wound. Debridement of cavity/ulcer done as above. Procedure was well tolerated. Wound Vac still in the process of approval. Will switch dressing to aquacel etxra. 3M wraps to be changed every third day to bilateral lowr extremity. Continue high-protein diet/supplements. Avoid idle standing.. Elevate lower extremity when seated and in bed. Exercise and weight loss recommended. Follow-up in 1 week. This note was generated with [employer] dictation software. It may contain incorrect words, spelling, and punctuation that were not noted in checking the note before signing.
--- NOTE | 2017-06-16 10:52 | PN.PCM_ITS ---
(1) Non-pressure ulcer of right lower extremity with fat layer exposed Status: Chronic Code(s): L97.912 - Non-pressure chronic ulcer of unspecified part of right lower leg with fat layer exposed (2) Abscess of right lower extremity Status: Chronic Code(s): L02.415 - Cutaneous abscess of right lower limb (3) Cellulitis of leg without foot, right Status: Chronic Code(s): L03.115 - Cellulitis of right lower limb (4) Obesity Status: Chronic Code(s): E66.9 - Obesity, unspecified Type of Wound Date of Service: 06/16/17 Chief Complaint: Left lower extremity ulcer and cellulitis. Left lower extremity abscess. History of Wound: Ms. Corona is a 31-year-old with past medical history of pulmonary embolism and mood disorders who was referred to the wound clinic by her primary care physician due to poor healing of her left lower extremity wounds. She reports being in a stable state of health until about 3-4 weeks ago when she initially noted burning and stinging of the left lower extremity and believes she was bitten by probably spider. About 2 weeks after that incident she noted flulike symptoms and subsequent worsening pain and redness of her left lower extremity. She was seen by primary care physician and subsequently referred to the emergency room where she was admitted and managed as a case of left lower extremity cellulitis. Since her discharge she had been followed up by her primary care physician and was wrapping her left lower extremity with gauze and Paul wraps. She states that she was recently given a cream by her PCP however she is unsure of the name. She was on antibiotics during her hospital stay and was discharged on doxycycline and Keflex. Wound was said to have been stable without any significant progression however her mother notes that on Wednesday they noted a purulent discharge from opening in her lower leg. She denies chills, fever, nausea, vomiting or otherwise feeling of unwell Progress of Wound: Improving. No new complaints at this time. - Physical Exam Vital Signs Temp Pulse Resp BP 99.3 F H 88 18 140/88 H 06/16/17 09:08 06/16/17 09:08 06/16/17 09:08 06/16/17 09:08 General: Alert, Oriented x3, Cooperative, No apparent distress HEENT: Atraumatic, Normocephalic Oral: Moist Mucosa Neck: Supple Lungs: Normal air movement Cardiovascular: Regular rate Abdomen: Obese Extremities: No cyanosis, Edema Skin: Ulcer/ Wound Wound Measurements and Assessment WC - Nurse 1 - General Ulcer Measurement Start: 05/26/17 11:05 Freq: Status: Active Protocol: Activity Type Activity Date Activity User E-Sign Co-Sign Detail Recorded Client Recorded Date Recorded By Document 06/16/17 09:08 RB [id number] 06/16/17 09:22 RB 06/16/17 09:08 Wound Center Nurse 1 [Ulcer Assessment] #1 RLE Lateral Devi -Combined with other wound No -Current Size (cm) - Length 1.1 -Current Size (cm) - Width 0.6 -Current Size (cm) - Depth 2 -Total Square Cm 0.66 -Epithelialization Small 1-33% -Tunneling No -Undermining/Tunneling Yes -Undermining/Tunneling Starts (O' 11 clock) -Undermining/Tunneling Ends (O'clock) 11 -Maximum Distance (cm) 3.2 -Circular Undermining No -Classification - Thickness Full Thickness without Exposed Support Structure -Exudate Amt Medium (34-66%) -Exudate Type Serosanguineous -Wound Margin Distinct, Outline Attached -Granulation Amt Medium (34-66%) -Granulation Quality Bladen -Slough/Fibrin Yes -Necrosis Amt Small (1-33%) -Necrotic Tissue Type Adherent Slough -Structure Exposed N/A -Texture (Paulina-wound Skin Appearance) Assessed -Moisture (Paulina-wound Skin Appearance Assessed ) -Color (Paulina-wound Skin Appearance) Assessed Erythema -Temperature (Paulina-wound Skin No Abnormality Appearance) (Pt Warm) -Tenderness on Palpation (Paulina-wound No Skin Appearance) -Ulcer Cleansing Rinsed/ Irrigated with Saline -Foul Odor after Cleansing No -Anesthetic Used 4% Lidocaine Solution [Edema Assessment] -Lower Limb Edema Present Yes -Right Calf (cm) 35 -Right Ankle (cm) 68.5 WC - Nurse 2 - General Ulcer CM Notes Start: 05/26/17 11:05 Freq: Status: Active Protocol: Activity Type Activity Date Activity User E-Sign Co-Sign Detail Recorded Client Recorded Date Recorded By Document 06/16/17 09:35 DV [id number] 06/16/17 09:39 DV 06/16/17 09:35 Wound Center Nurse 2 [Procedure/Treatment] #1 RLE Lateral Devi -Time 09:37 -Correct Patient Yes -Correct Side, Site, Position Yes -Correct Procedure Yes -Procedure Performed Yes -Type of Procedure Debridement -Clinical Debridement Subcutaneous -Post Debridement Size (cm) - Length 1.3 -Post Debridement Size (cm) - Width 0.8 -Post Debridement Size (cm) - Depth 2.5 -Total Square Cm 1.04 -Wound/Ulcer Outcome Not Healed -Ulcer Cleansing Rinsed/ Irrigated with Saline -Foul Odor after Cleansing No -Bioengineered Tissue No -Bleeding Controlled with Pressure -Treatment Response Procedure Tolerated Well [See Physician Procedure note for Specifics] Pain Scale: 0-10 Numeric [Pain] -Is Patient Pain Free? Yes Musculoskeletal: No Muscle Wasting Neurological: Cranial nerves II-XII grossly intact Psych/Mental Status: Normal Affect Debridement Note Post-Debridement Measurements/Treatment WC - Nurse 2 - General Ulcer CM Notes Start: 05/26/17 11:05 Freq: Status: Active Protocol: Activity Type Activity Date Activity User E-Sign Co-Sign Detail Recorded Client Recorded Date Recorded By Document 05/26/17 12:12 DV [id number] 05/26/17 12:53 DV Document 06/02/17 11:35 JS [id number] 06/02/17 11:48 JS Document 06/09/17 12:20 DV [id number] 06/09/17 12:26 DV Document 06/16/17 09:35 DV [id number] 06/16/17 09:39 DV 05/26/17 06/02/17 06/09/17 12:12 11:35 12:20 Wound Center Nurse 2 #2 RLE - Circumfrental -Time 12:12 11:35 12:21 -Correct Patient Yes Yes Yes -Correct Side, Site, Position Yes Yes Yes -Correct Procedure Yes Yes -Procedure Performed Yes No No -Type of Procedure Debridement -Clinical Debridement Subcutaneous Selective -Post Debridement Size (cm) - Length 19.9 0.1 -Post Debridement Size (cm) - Width 27.0 0.1 -Post Debridement Size (cm) - Depth 0.1 0.1 -Total Square Cm 537.30 0.01 -Wound/Ulcer Outcome Not Healed Not Healed Healed- Epithelialized -Ulcer Cleansing Rinsed/ Rinsed/ Irrigated with Irrigated with Saline Saline -Foul Odor after Cleansing No No -Bioengineered Tissue No -Bleeding Controlled with Pressure -Treatment Response Procedure Tolerated Well #1 RLE Lateral Devi -Time 12:17 11:36 12:22 -Correct Patient Yes Yes Yes -Correct Side, Site, Position Yes Yes Yes -Correct Procedure Yes Yes Yes -Procedure Performed Yes Yes Yes -Type of Procedure Incision & Debridement Debridement Debridement -Clinical Debridement Subcutaneous Subcutaneous Subcutaneous Bone -Post Debridement Size (cm) - Length 1.3 1.5 1.8 -Post Debridement Size (cm) - Width 0.9 0.7 0.8 -Post Debridement Size (cm) - Depth 2.6 2.0 1.5 -Total Square Cm 1.17 1.05 1.44 -Wound/Ulcer Outcome Not Healed Not Healed Not Healed -Ulcer Cleansing Rinsed/ Rinsed/ Rinsed/ Irrigated with Irrigated with Irrigated with Saline Saline Saline -Foul Odor after Cleansing No No No -Bioengineered Tissue No No No -Topical Lidocaine (%) 4 -Bleeding Controlled with Pressure Pressure Pressure -Treatment Response Procedure Procedure Procedure Tolerated Well Tolerated Well Tolerated Well Pain Scale: 0-10 Numeric Is Patient Pain Free? Yes Yes Yes 06/16/17 09:35 Wound Center Nurse 2 #2 RLE - Circumfrental -Time -Correct Patient -Correct Side, Site, Position -Correct Procedure -Procedure Performed -Type of Procedure -Clinical Debridement -Post Debridement Size (cm) - Length -Post Debridement Size (cm) - Width -Post Debridement Size (cm) - Depth -Total Square Cm -Wound/Ulcer Outcome -Ulcer Cleansing -Foul Odor after Cleansing -Bioengineered Tissue -Bleeding Controlled with -Treatment Response #1 RLE Lateral Devi -Time 09:37 -Correct Patient Yes -Correct Side, Site, Position Yes -Correct Procedure Yes -Procedure Performed Yes -Type of Procedure Debridement -Clinical Debridement Subcutaneous -Post Debridement Size (cm) - Length 1.3 -Post Debridement Size (cm) - Width 0.8 -Post Debridement Size (cm) - Depth 2.5 -Total Square Cm 1.04 -Wound/Ulcer Outcome Not Healed -Ulcer Cleansing Rinsed/ Irrigated with Saline -Foul Odor after Cleansing No -Bioengineered Tissue No -Topical Lidocaine (%) -Bleeding Controlled with Pressure -Treatment Response Procedure Tolerated Well Pain Scale: 0-10 Numeric Is Patient Pain Free? Yes Wound debrided: Right Lower extremity ulcer/cavity/abscess Wound Grade/Stage: Stage II Type of Debridement: Excisional debridement Anesthesia Used: 4% Lidocaine Solution Depth: Down to and including healthy tissue, in the subcutaneous layer Percentage of wound debrided: 100 Instrument Used: 3mm curette Tissue Removed: Slough and Devitalized tissue Severity: Fat Layer Exposed Amount of bleeding with debridement: Mild Bleeding Controlled with: Pressure Patient tolerated procedure well Assessment/Plan Assessment: Cellulitis and ulcer of Right lower extremity possibly secondary to spider bite. Right lower leg abscess/ulcer s/p incision and drainage. Morbid obesity. Plan: Patient continues to show improvement. Posterior ulcerated area stays healed. Tunelling around the 11' O clock position appears to have opened up resulting in a seemingly deeper wound. Debridement of cavity/ulcer done as above. Procedure was well tolerated. Wound Vac still in the process of approval. Will switch dressing to aquacel etxra. 3M wraps to be changed every third day to bilateral lowr extremity. Continue high-protein diet/supplements. Avoid idle standing.. Elevate lower extremity when seated and in bed. Exercise and weight loss recommended. Follow-up in 1 week. This note was generated with [employer] dictation software. It may contain incorrect words, spelling, and punctuation that were not noted in checking the note before signing.
== END 2017-06-16 23:59 ==
LOC: WC 09:00
PROVIDERS: Family Provider Family Medicine; PCP Family Medicine; Visit Provider Internal Medicine
DX: L03.115 Cellulitis of right lower limb (principal); L02.416 Cutaneous abscess of left lower limb; Z86.711 Personal history of pulmonary embolism; E66.01 Morbid (severe) obesity due to excess calories; Z71.3 Dietary counseling and surveillance; B96.5 Pseudomonas (aeruginosa) (mallei) (pseudomallei) as the cause of diseases classified elsewhere; L97.812 Non-pressure chronic ulcer of other part of right lower leg with fat layer exposed; R60.0 Localized edema; R09.89 Other specified symptoms and signs involving the circulatory and respiratory systems; F32.9 Major depressive disorder, single episode, unspecified; F41.9 Anxiety disorder, unspecified; Z79.899 Other long term (current) drug therapy
CPT/HCPCS: 11042; 11043; 11045; 29581; 83036; 84134; 85025; 86140; 87070; 87075; 87077; 87186; 87205; 93923; 93970; 99211; 99214; G0463

== ENCOUNTER 2017-07-14 09:00 | Outpatient (RCR) | payer OTHER, SELFPAY ==
[2017-06-17 01:04] VITALS: BP 150/98; PULSE 88; RESP 18; TEMP 37.4
[2017-06-18 11:34] VITALS: BP 131/110; PULSE 93; RESP 16; TEMP 37.6
[2017-06-21 13:24] VITALS: BP 149/98; PULSE 87; RESP 16; TEMP 37.9
[2017-06-23 11:30] VITALS: BP 158/98; PULSE 78; RESP 18; TEMP 36.6
--- NOTE | 2017-06-23 14:18 | PCM.WC.PN ---
(1) Abscess of right lower extremity Status: Chronic Current Visit: No Code(s): L02.415 - Cutaneous abscess of right lower limb (2) Cellulitis of leg without foot, right Status: Chronic Current Visit: No Code(s): L03.115 - Cellulitis of right lower limb (3) Non-pressure ulcer of right lower extremity with fat layer exposed Status: Chronic Current Visit: Yes Code(s): L97.912 - Non-pressure chronic ulcer of unspecified part of right lower leg with fat layer exposed Type of Wound Date of Service: 06/23/17 Chief Complaint: Left lower extremity ulcer and cellulitis. Left lower extremity abscess. History of Wound: Ms. Corona is a 31-year-old with past medical history of pulmonary embolism and mood disorders who was referred to the wound clinic by her primary care physician due to poor healing of her left lower extremity wounds. She reports being in a stable state of health until about 3-4 weeks ago when she initially noted burning and stinging of the left lower extremity and believes she was bitten by probably spider. About 2 weeks after that incident she noted flulike symptoms and subsequent worsening pain and redness of her left lower extremity. She was seen by primary care physician and subsequently referred to the emergency room where she was admitted and managed as a case of left lower extremity cellulitis. Since her discharge she had been followed up by her primary care physician and was wrapping her left lower extremity with gauze and Paul wraps. She states that she was recently given a cream by her PCP however she is unsure of the name. She was on antibiotics during her hospital stay and was discharged on doxycycline and Keflex. Wound was said to have been stable without any significant progression however her mother notes that on Wednesday they noted a purulent discharge from opening in her lower leg. She denies chills, fever, nausea, vomiting or otherwise feeling of unwell Progress of Wound: Improving. No new complaints at this time. - Physical Exam Vital Signs Temp Pulse Resp BP 98 F 78 18 158/98 H 06/23/17 11:30 06/23/17 11:30 06/23/17 11:30 06/23/17 11:30 General: Alert, Oriented x3, Cooperative, No apparent distress HEENT: Atraumatic, Normocephalic Oral: Moist Mucosa Neck: Supple Lungs: Normal air movement Cardiovascular: Regular rate Abdomen: Obese Extremities: Edema Skin: Ulcer/ Wound Wound Measurements and Assessment WC - Nurse 1 - General Ulcer Measurement Start: 06/18/17 11:34 Freq: Status: Active Protocol: Activity Type Activity Date Activity User E-Sign Co-Sign Detail Recorded Client Recorded Date Recorded By Document 06/21/17 13:24 BM [id number] 06/21/17 13:50 BM Document 06/23/17 11:30 RB [id number] 06/23/17 11:34 RB 06/21/17 06/23/17 13:24 11:30 Wound Center Nurse 1 [Ulcer Assessment] #1 RLE Lateral Devi -Combined with other wound No No -Current Size (cm) - Length 1.3 1.1 -Current Size (cm) - Width 0.4 0.6 -Current Size (cm) - Depth 4.3 1 -Total Square Cm 0.52 0.66 -Photo Taken No No -Epithelialization None Present -Tunneling No Yes -Tunneling Position (O'clock) 11 -Tunneling Distance (cm) 3.3 -Undermining/Tunneling No No -Circular Undermining No -Classification - Thickness Full Thickness without Exposed Support Structure -Exudate Amt Medium (34-66%) Small (1-33%) -Exudate Type Serosanguineous Serosanguineous -Wound Margin Distinct, Distinct, Outline Outline Attached Attached -Granulation Amt Large (67-100%) Large (67-100%) -Granulation Quality Pale [place] Red Red -Slough/Fibrin No Yes -Necrosis Amt None Present (0 Small (1-33%) %) -Necrotic Tissue Type Adherent Slough -Structure Exposed N/A N/A -Texture (Paulina-wound Skin Appearance) Scarring Assessed -Moisture (Paulina-wound Skin Appearance Dry/Scaly Assessed ) -Color (Paulina-wound Skin Appearance) Assessed Erythema -Temperature (Paulina-wound Skin No Abnormality No Abnormality Appearance) (Pt Warm) (Pt Warm) -Tenderness on Palpation (Paulina-wound No No Skin Appearance) -Ulcer Cleansing Rinsed/ Rinsed/ Irrigated with Irrigated with Saline Saline -Foul Odor after Cleansing No No [Edema Assessment] -Lower Limb Edema Present Yes -Right Calf (cm) 57.8 -Right Ankle (cm) 30.7 -Left Calf (cm) 56.5 -Left Ankle (cm) 29 WC - Nurse 2 - General Ulcer CM Notes Start: 06/18/17 11:34 Freq: Status: Active Protocol: Activity Type Activity Date Activity User E-Sign Co-Sign Detail Recorded Client Recorded Date Recorded By Document 06/23/17 12:08 DV [id number] 06/23/17 12:11 DV 06/23/17 12:08 Wound Center Nurse 2 [Procedure/Treatment] #1 RLE Lateral Devi -Time 12:09 -Correct Patient Yes -Correct Side, Site, Position Yes -Correct Procedure Yes -Procedure Performed Yes -Type of Procedure Debridement -Clinical Debridement Subcutaneous -Post Debridement Size (cm) - Length 1.2 -Post Debridement Size (cm) - Width 0.7 -Post Debridement Size (cm) - Depth 1.8 -Total Square Cm 0.84 -Wound/Ulcer Outcome Not Healed -Ulcer Cleansing Rinsed/ Irrigated with Saline -Foul Odor after Cleansing No -Bioengineered Tissue No -Bleeding Controlled with Pressure -Treatment Response Procedure Tolerated Well [See Physician Procedure note for Specifics] Pain Scale: 0-10 Numeric [Pain] -Is Patient Pain Free? Yes Musculoskeletal: No Muscle Wasting Neurological: Cranial nerves II-XII grossly intact Psych/Mental Status: Normal Affect Debridement Note Post-Debridement Measurements/Treatment - Nurse 2 - General Ulcer CM Notes Start: 06/18/17 11:34 Freq: Status: Active Protocol: Activity Type Activity Date Activity User E-Sign Co-Sign Detail Recorded Client Recorded Date Recorded By Document 06/23/17 12:08 DV [id number] 06/23/17 12:11 DV 06/23/17 12:08 Wound Center Nurse 2 #1 RLE Lateral Devi -Time 12:09 -Correct Patient Yes -Correct Side, Site, Position Yes -Correct Procedure Yes -Procedure Performed Yes -Type of Procedure Debridement -Clinical Debridement Subcutaneous -Post Debridement Size (cm) - Length 1.2 -Post Debridement Size (cm) - Width 0.7 -Post Debridement Size (cm) - Depth 1.8 -Total Square Cm 0.84 -Wound/Ulcer Outcome Not Healed -Ulcer Cleansing Rinsed/ Irrigated with Saline -Foul Odor after Cleansing No -Bioengineered Tissue No -Bleeding Controlled with Pressure -Treatment Response Procedure Tolerated Well Pain Scale: 0-10 Numeric Is Patient Pain Free? 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 Right lower leg abscess/ulcer s/p incision and drainage. Morbid obesity. Plan: Wound continues to show slow but steady improvement. Some reduction in the depth noted today. Still awaiting approval for wound VAC which I believe will help with faster/rapid cavity closure. Continue aquacel etxra to ulcer/cavity. Continue 3M wraps to be changed every third day to bilateral lower extremity. Continue high-protein diet/supplements. Avoid idle standing.. Elevate lower extremity when seated and in bed. Exercise and weight loss recommended. Follow-up in 1 week. This note was generated with [employer] dictation software. It may contain incorrect words, spelling, and punctuation that were not noted in checking the note before signing.
--- NOTE | 2017-06-23 14:26 | PN.PCM_ITS ---
(1) Abscess of right lower extremity Status: Chronic Current Visit: No Code(s): L02.415 - Cutaneous abscess of right lower limb (2) Cellulitis of leg without foot, right Status: Chronic Current Visit: No Code(s): L03.115 - Cellulitis of right lower limb (3) Non-pressure ulcer of right lower extremity with fat layer exposed Status: Chronic Current Visit: Yes Code(s): L97.912 - Non-pressure chronic ulcer of unspecified part of right lower leg with fat layer exposed Type of Wound Date of Service: 06/23/17 Chief Complaint: Left lower extremity ulcer and cellulitis. Left lower extremity abscess. History of Wound: Ms. Corona is a 31-year-old with past medical history of pulmonary embolism and mood disorders who was referred to the wound clinic by her primary care physician due to poor healing of her left lower extremity wounds. She reports being in a stable state of health until about 3-4 weeks ago when she initially noted burning and stinging of the left lower extremity and believes she was bitten by probably spider. About 2 weeks after that incident she noted flulike symptoms and subsequent worsening pain and redness of her left lower extremity. She was seen by primary care physician and subsequently referred to the emergency room where she was admitted and managed as a case of left lower extremity cellulitis. Since her discharge she had been followed up by her primary care physician and was wrapping her left lower extremity with gauze and Paul wraps. She states that she was recently given a cream by her PCP however she is unsure of the name. She was on antibiotics during her hospital stay and was discharged on doxycycline and Keflex. Wound was said to have been stable without any significant progression however her mother notes that on Wednesday they noted a purulent discharge from opening in her lower leg. She denies chills, fever, nausea, vomiting or otherwise feeling of unwell Progress of Wound: Improving. No new complaints at this time. - Physical Exam Vital Signs Temp Pulse Resp BP 98 F 78 18 158/98 H 06/23/17 11:30 06/23/17 11:30 06/23/17 11:30 06/23/17 11:30 General: Alert, Oriented x3, Cooperative, No apparent distress HEENT: Atraumatic, Normocephalic Oral: Moist Mucosa Neck: Supple Lungs: Normal air movement Cardiovascular: Regular rate Abdomen: Obese Extremities: Edema Skin: Ulcer/ Wound Wound Measurements and Assessment WC - Nurse 1 - General Ulcer Measurement Start: 06/18/17 11:34 Freq: Status: Active Protocol: Activity Type Activity Date Activity User E-Sign Co-Sign Detail Recorded Client Recorded Date Recorded By Document 06/21/17 13:24 BM [id number] 06/21/17 13:50 BM Document 06/23/17 11:30 RB [id number] 06/23/17 11:34 RB 06/21/17 06/23/17 13:24 11:30 Wound Center Nurse 1 [Ulcer Assessment] #1 RLE Lateral Devi -Combined with other wound No No -Current Size (cm) - Length 1.3 1.1 -Current Size (cm) - Width 0.4 0.6 -Current Size (cm) - Depth 4.3 1 -Total Square Cm 0.52 0.66 -Photo Taken No No -Epithelialization None Present -Tunneling No Yes -Tunneling Position (O'clock) 11 -Tunneling Distance (cm) 3.3 -Undermining/Tunneling No No -Circular Undermining No -Classification - Thickness Full Thickness without Exposed Support Structure -Exudate Amt Medium (34-66%) Small (1-33%) -Exudate Type Serosanguineous Serosanguineous -Wound Margin Distinct, Distinct, Outline Outline Attached Attached -Granulation Amt Large (67-100%) Large (67-100%) -Granulation Quality Pale [place] Red Red -Slough/Fibrin No Yes -Necrosis Amt None Present (0 Small (1-33%) %) -Necrotic Tissue Type Adherent Slough -Structure Exposed N/A N/A -Texture (Paulina-wound Skin Appearance) Scarring Assessed -Moisture (Paulina-wound Skin Appearance Dry/Scaly Assessed ) -Color (Paulina-wound Skin Appearance) Assessed Erythema -Temperature (Paulina-wound Skin No Abnormality No Abnormality Appearance) (Pt Warm) (Pt Warm) -Tenderness on Palpation (Paulina-wound No No Skin Appearance) -Ulcer Cleansing Rinsed/ Rinsed/ Irrigated with Irrigated with Saline Saline -Foul Odor after Cleansing No No [Edema Assessment] -Lower Limb Edema Present Yes -Right Calf (cm) 57.8 -Right Ankle (cm) 30.7 -Left Calf (cm) 56.5 -Left Ankle (cm) 29 WC - Nurse 2 - General Ulcer CM Notes Start: 06/18/17 11:34 Freq: Status: Active Protocol: Activity Type Activity Date Activity User E-Sign Co-Sign Detail Recorded Client Recorded Date Recorded By Document 06/23/17 12:08 DV [id number] 06/23/17 12:11 DV 06/23/17 12:08 Wound Center Nurse 2 [Procedure/Treatment] #1 RLE Lateral Devi -Time 12:09 -Correct Patient Yes -Correct Side, Site, Position Yes -Correct Procedure Yes -Procedure Performed Yes -Type of Procedure Debridement -Clinical Debridement Subcutaneous -Post Debridement Size (cm) - Length 1.2 -Post Debridement Size (cm) - Width 0.7 -Post Debridement Size (cm) - Depth 1.8 -Total Square Cm 0.84 -Wound/Ulcer Outcome Not Healed -Ulcer Cleansing Rinsed/ Irrigated with Saline -Foul Odor after Cleansing No -Bioengineered Tissue No -Bleeding Controlled with Pressure -Treatment Response Procedure Tolerated Well [See Physician Procedure note for Specifics] Pain Scale: 0-10 Numeric [Pain] -Is Patient Pain Free? Yes Musculoskeletal: No Muscle Wasting Neurological: Cranial nerves II-XII grossly intact Psych/Mental Status: Normal Affect Debridement Note Post-Debridement Measurements/Treatment - Nurse 2 - General Ulcer CM Notes Start: 06/18/17 11:34 Freq: Status: Active Protocol: Activity Type Activity Date Activity User E-Sign Co-Sign Detail Recorded Client Recorded Date Recorded By Document 06/23/17 12:08 DV [id number] 06/23/17 12:11 DV 06/23/17 12:08 Wound Center Nurse 2 #1 RLE Lateral Devi -Time 12:09 -Correct Patient Yes -Correct Side, Site, Position Yes -Correct Procedure Yes -Procedure Performed Yes -Type of Procedure Debridement -Clinical Debridement Subcutaneous -Post Debridement Size (cm) - Length 1.2 -Post Debridement Size (cm) - Width 0.7 -Post Debridement Size (cm) - Depth 1.8 -Total Square Cm 0.84 -Wound/Ulcer Outcome Not Healed -Ulcer Cleansing Rinsed/ Irrigated with Saline -Foul Odor after Cleansing No -Bioengineered Tissue No -Bleeding Controlled with Pressure -Treatment Response Procedure Tolerated Well Pain Scale: 0-10 Numeric Is Patient Pain Free? 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 Right lower leg abscess/ulcer s/p incision and drainage. Morbid obesity. Plan: Wound continues to show slow but steady improvement. Some reduction in the depth noted today. Still awaiting approval for wound VAC which I believe will help with faster/rapid cavity closure. Continue aquacel etxra to ulcer/ cavity. Continue 3M wraps to be changed every third day to bilateral lower extremity. Continue high-protein diet/supplements. Avoid idle standing.. Elevate lower extremity when seated and in bed. Exercise and weight loss recommended. Follow-up in 1 week. This note was generated with [facility] dictation software. It may contain incorrect words, spelling, and punctuation that were not noted in checking the note before signing.
[2017-06-25 14:18] VITALS: BP 151/91; PULSE 86; RESP 22; TEMP 36.7
[2017-06-28 15:32] VITALS: BP 158/85; PULSE 94; RESP 18; TEMP 36
[2017-06-30 08:18] VITALS: BP 174/102; PULSE 101; RESP 18; TEMP 36.6
--- NOTE | 2017-06-30 17:03 | PCM.WC.PN ---
(1) Abscess of right lower extremity Status: Chronic Current Visit: No Code(s): L02.415 - Cutaneous abscess of right lower limb (2) Cellulitis of leg without foot, right Status: Chronic Current Visit: No Code(s): L03.115 - Cellulitis of right lower limb (3) Non-pressure ulcer of right lower extremity with fat layer exposed Status: Chronic Current Visit: Yes Code(s): L97.912 - Non-pressure chronic ulcer of unspecified part of right lower leg with fat layer exposed Type of Wound Date of Service: 06/30/17 Chief Complaint: Left lower extremity ulcer and cellulitis. Left lower extremity abscess. History of Wound: Ms. Corona is a 31-year-old with past medical history of pulmonary embolism and mood disorders who was referred to the wound clinic by her primary care physician due to poor healing of her left lower extremity wounds. She reports being in a stable state of health until about 3-4 weeks ago when she initially noted burning and stinging of the left lower extremity and believes she was bitten by probably spider. About 2 weeks after that incident she noted flulike symptoms and subsequent worsening pain and redness of her left lower extremity. She was seen by primary care physician and subsequently referred to the emergency room where she was admitted and managed as a case of left lower extremity cellulitis. Since her discharge she had been followed up by her primary care physician and was wrapping her left lower extremity with gauze and Paul wraps. She states that she was recently given a cream by her PCP however she is unsure of the name. She was on antibiotics during her hospital stay and was discharged on doxycycline and Keflex. Wound was said to have been stable without any significant progression however her mother notes that on Wednesday they noted a purulent discharge from opening in her lower leg. She denies chills, fever, nausea, vomiting or otherwise feeling of unwell Progress of Wound: Stable. No new complaints at this time. - Physical Exam Vital Signs Temp Pulse Resp BP 97.8 F 101 H 18 174/102 H 06/30/17 08:18 06/30/17 08:18 06/30/17 08:18 06/30/17 08:18 General: Alert, Oriented x3, Cooperative, No apparent distress HEENT: Atraumatic, Normocephalic Oral: Moist Mucosa Neck: Supple Lungs: Normal air movement Cardiovascular: Regular rate Abdomen: Obese Extremities: No cyanosis, Edema Skin: Ulcer/ Wound Wound Measurements and Assessment WC - Nurse 1 - General Ulcer Measurement Start: 06/18/17 11:34 Freq: Status: Active Protocol: Activity Type Activity Date Activity User E-Sign Co-Sign Detail Recorded Client Recorded Date Recorded By Document 06/28/17 15:32 DL [id number] 06/28/17 15:34 DL Document 06/30/17 08:18 MW [id number] 06/30/17 08:26 MW 06/28/17 06/30/17 15:32 08:18 Wound Center Nurse 1 [Ulcer Assessment] #1 RLE Lateral Devi -Combined with other wound No -Current Size (cm) - Length 1.0 -Current Size (cm) - Width 0.5 -Current Size (cm) - Depth 1.2 -Total Square Cm 0.50 -Date of Last Picture (Recall this 06/30/17 field) -Photo Taken Yes -Tunneling Yes -Tunneling Position (O'clock) 11 -Tunneling Distance (cm) 4.2 -Undermining/Tunneling No -Circular Undermining No -Exudate Amt Small (1-33%) -Exudate Type Serosanguineous -Wound Margin Indistinct, Non -Visible -Granulation Amt None Present (0 %) -Granulation Quality N/A -Slough/Fibrin Yes -Necrosis Amt Small (1-33%) -Necrotic Tissue Type Adherent Slough -Structure Exposed N/A -Texture (Paulina-wound Skin Appearance) Assessed Localized Edema -Moisture (Paulina-wound Skin Appearance Assessed ) Maceration -Color (Paulina-wound Skin Appearance) No Abnormality No Abnormality Assessed -Temperature (Paulina-wound Skin No Abnormality No Abnormality Appearance) (Pt Warm) (Pt Warm) -Tenderness on Palpation (Paulina-wound No Skin Appearance) -Ulcer Cleansing Wound Cleanser Rinsed/ Irrigated with Saline -Foul Odor after Cleansing No No -Anesthetic Used 4% Lidocaine Solution [Edema Assessment] -Lower Limb Edema Present Yes -Right Calf (cm) 60.9 61.8 -Right Ankle (cm) 31.2 31.0 -Left Calf (cm) 60 60.6 -Left Ankle (cm) 29.3 28.5 WC - Nurse 2 - General Ulcer CM Notes Start: 06/18/17 11:34 Freq: Status: Active Protocol: Activity Type Activity Date Activity User E-Sign Co-Sign Detail Recorded Client Recorded Date Recorded By Document 06/30/17 09:05 DV [id number] 06/30/17 09:06 DV 06/30/17 09:05 Wound Center Nurse 2 [Procedure/Treatment] #1 RLE Lateral Devi -Time 09:05 -Correct Patient Yes -Correct Side, Site, Position Yes -Correct Procedure Yes -Procedure Performed Yes -Type of Procedure Debridement -Clinical Debridement Subcutaneous -Post Debridement Size (cm) - Length 1.1 -Post Debridement Size (cm) - Width 0.5 -Post Debridement Size (cm) - Depth 1.5 -Total Square Cm 0.55 -Wound/Ulcer Outcome Not Healed -Ulcer Cleansing Rinsed/ Irrigated with Saline -Foul Odor after Cleansing No -Bioengineered Tissue No -Bleeding Controlled with Pressure -Treatment Response Procedure Tolerated Well [See Physician Procedure note for Specifics] Pain Scale: 0-10 Numeric [Pain] -Is Patient Pain Free? Yes Musculoskeletal: No Muscle Wasting Neurological: Cranial nerves II-XII grossly intact Psych/Mental Status: Normal Affect Debridement Note Post-Debridement Measurements/Treatment WC - Nurse 2 - General Ulcer CM Notes Start: 06/18/17 11:34 Freq: Status: Active Protocol: Activity Type Activity Date Activity User E-Sign Co-Sign Detail Recorded Client Recorded Date Recorded By Document 06/23/17 12:08 DV [id number] 06/23/17 12:11 DV Document 06/30/17 09:05 DV [id number] 06/30/17 09:06 DV 06/23/17 06/30/17 12:08 09:05 Wound Center Nurse 2 #1 RLE Lateral Devi -Time 12:09 09:05 -Correct Patient Yes Yes -Correct Side, Site, Position Yes Yes -Correct Procedure Yes Yes -Procedure Performed Yes Yes -Type of Procedure Debridement Debridement -Clinical Debridement Subcutaneous Subcutaneous -Post Debridement Size (cm) - Length 1.2 1.1 -Post Debridement Size (cm) - Width 0.7 0.5 -Post Debridement Size (cm) - Depth 1.8 1.5 -Total Square Cm 0.84 0.55 -Wound/Ulcer Outcome Not Healed Not Healed -Ulcer Cleansing Rinsed/ Rinsed/ Irrigated with Irrigated with Saline Saline -Foul Odor after Cleansing No No -Bioengineered Tissue No No -Bleeding Controlled with Pressure Pressure -Treatment Response Procedure Procedure Tolerated Well Tolerated Well Pain Scale: 0-10 Numeric Is Patient Pain Free? 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 Right lower leg abscess/ulcer s/p incision and drainage. Morbid obesity. Plan: She now states that she has been approved for her wound VAC and is scheduled to receive it today. Commence wound VAC at 125 mmHg. Continue SurePress for edema management. Nurse visit on Wednesday. Continue high-protein diet/supplements. Avoid idle standing.. Elevate lower extremity when seated and in bed. Exercise and weight loss recommended. Follow-up in 1 week. This note was generated with [email or web address] dictation software. It may contain incorrect words, spelling, and punctuation that were not noted in checking the note before signing.
--- NOTE | 2017-06-30 17:06 | PN.PCM_ITS ---
(1) Abscess of right lower extremity Status: Chronic Current Visit: No Code(s): L02.415 - Cutaneous abscess of right lower limb (2) Cellulitis of leg without foot, right Status: Chronic Current Visit: No Code(s): L03.115 - Cellulitis of right lower limb (3) Non-pressure ulcer of right lower extremity with fat layer exposed Status: Chronic Current Visit: Yes Code(s): L97.912 - Non-pressure chronic ulcer of unspecified part of right lower leg with fat layer exposed Type of Wound Date of Service: 06/30/17 Chief Complaint: Left lower extremity ulcer and cellulitis. Left lower extremity abscess. History of Wound: Ms. Corona is a 31-year-old with past medical history of pulmonary embolism and mood disorders who was referred to the wound clinic by her primary care physician due to poor healing of her left lower extremity wounds. She reports being in a stable state of health until about 3-4 weeks ago when she initially noted burning and stinging of the left lower extremity and believes she was bitten by probably spider. About 2 weeks after that incident she noted flulike symptoms and subsequent worsening pain and redness of her left lower extremity. She was seen by primary care physician and subsequently referred to the emergency room where she was admitted and managed as a case of left lower extremity cellulitis. Since her discharge she had been followed up by her primary care physician and was wrapping her left lower extremity with gauze and Paul wraps. She states that she was recently given a cream by her PCP however she is unsure of the name. She was on antibiotics during her hospital stay and was discharged on doxycycline and Keflex. Wound was said to have been stable without any significant progression however her mother notes that on Wednesday they noted a purulent discharge from opening in her lower leg. She denies chills, fever, nausea, vomiting or otherwise feeling of unwell Progress of Wound: Stable. No new complaints at this time. - Physical Exam Vital Signs Temp Pulse Resp BP 97.8 F 101 H 18 174/102 H 06/30/17 08:18 06/30/17 08:18 06/30/17 08:18 06/30/17 08:18 General: Alert, Oriented x3, Cooperative, No apparent distress HEENT: Atraumatic, Normocephalic Oral: Moist Mucosa Neck: Supple Lungs: Normal air movement Cardiovascular: Regular rate Abdomen: Obese Extremities: No cyanosis, Edema Skin: Ulcer/ Wound Wound Measurements and Assessment WC - Nurse 1 - General Ulcer Measurement Start: 06/18/17 11:34 Freq: Status: Active Protocol: Activity Type Activity Date Activity User E-Sign Co-Sign Detail Recorded Client Recorded Date Recorded By Document 06/28/17 15:32 DL [id number] 06/28/17 15:34 DL Document 06/30/17 08:18 MW [id number] 06/30/17 08:26 MW 06/28/17 06/30/17 15:32 08:18 Wound Center Nurse 1 [Ulcer Assessment] #1 RLE Lateral Devi -Combined with other wound No -Current Size (cm) - Length 1.0 -Current Size (cm) - Width 0.5 -Current Size (cm) - Depth 1.2 -Total Square Cm 0.50 -Date of Last Picture (Recall this 06/30/17 field) -Photo Taken Yes -Tunneling Yes -Tunneling Position (O'clock) 11 -Tunneling Distance (cm) 4.2 -Undermining/Tunneling No -Circular Undermining No -Exudate Amt Small (1-33%) -Exudate Type Serosanguineous -Wound Margin Indistinct, Non -Visible -Granulation Amt None Present (0 %) -Granulation Quality N/A -Slough/Fibrin Yes -Necrosis Amt Small (1-33%) -Necrotic Tissue Type Adherent Slough -Structure Exposed N/A -Texture (Paulina-wound Skin Appearance) Assessed Localized Edema -Moisture (Paulina-wound Skin Appearance Assessed ) Maceration -Color (Paulina-wound Skin Appearance) No Abnormality No Abnormality Assessed -Temperature (Paulina-wound Skin No Abnormality No Abnormality Appearance) (Pt Warm) (Pt Warm) -Tenderness on Palpation (Paulina-wound No Skin Appearance) -Ulcer Cleansing Wound Cleanser Rinsed/ Irrigated with Saline -Foul Odor after Cleansing No No -Anesthetic Used 4% Lidocaine Solution [Edema Assessment] -Lower Limb Edema Present Yes -Right Calf (cm) 60.9 61.8 -Right Ankle (cm) 31.2 31.0 -Left Calf (cm) 60 60.6 -Left Ankle (cm) 29.3 28.5 WC - Nurse 2 - General Ulcer CM Notes Start: 06/18/17 11:34 Freq: Status: Active Protocol: Activity Type Activity Date Activity User E-Sign Co-Sign Detail Recorded Client Recorded Date Recorded By Document 06/30/17 09:05 DV [id number] 06/30/17 09:06 DV 06/30/17 09:05 Wound Center Nurse 2 [Procedure/Treatment] #1 RLE Lateral Devi -Time 09:05 -Correct Patient Yes -Correct Side, Site, Position Yes -Correct Procedure Yes -Procedure Performed Yes -Type of Procedure Debridement -Clinical Debridement Subcutaneous -Post Debridement Size (cm) - Length 1.1 -Post Debridement Size (cm) - Width 0.5 -Post Debridement Size (cm) - Depth 1.5 -Total Square Cm 0.55 -Wound/Ulcer Outcome Not Healed -Ulcer Cleansing Rinsed/ Irrigated with Saline -Foul Odor after Cleansing No -Bioengineered Tissue No -Bleeding Controlled with Pressure -Treatment Response Procedure Tolerated Well [See Physician Procedure note for Specifics] Pain Scale: 0-10 Numeric [Pain] -Is Patient Pain Free? Yes Musculoskeletal: No Muscle Wasting Neurological: Cranial nerves II-XII grossly intact Psych/Mental Status: Normal Affect Debridement Note Post-Debridement Measurements/Treatment WC - Nurse 2 - General Ulcer CM Notes Start: 06/18/17 11:34 Freq: Status: Active Protocol: Activity Type Activity Date Activity User E-Sign Co-Sign Detail Recorded Client Recorded Date Recorded By Document 06/23/17 12:08 DV [id number] 06/23/17 12:11 DV Document 06/30/17 09:05 DV [id number] 06/30/17 09:06 DV 06/23/17 06/30/17 12:08 09:05 Wound Center Nurse 2 #1 RLE Lateral Devi -Time 12:09 09:05 -Correct Patient Yes Yes -Correct Side, Site, Position Yes Yes -Correct Procedure Yes Yes -Procedure Performed Yes Yes -Type of Procedure Debridement Debridement -Clinical Debridement Subcutaneous Subcutaneous -Post Debridement Size (cm) - Length 1.2 1.1 -Post Debridement Size (cm) - Width 0.7 0.5 -Post Debridement Size (cm) - Depth 1.8 1.5 -Total Square Cm 0.84 0.55 -Wound/Ulcer Outcome Not Healed Not Healed -Ulcer Cleansing Rinsed/ Rinsed/ Irrigated with Irrigated with Saline Saline -Foul Odor after Cleansing No No -Bioengineered Tissue No No -Bleeding Controlled with Pressure Pressure -Treatment Response Procedure Procedure Tolerated Well Tolerated Well Pain Scale: 0-10 Numeric Is Patient Pain Free? 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 Right lower leg abscess/ulcer s/p incision and drainage. Morbid obesity. Plan: She now states that she has been approved for her wound VAC and is scheduled to receive it today. Commence wound VAC at 125 mmHg. Continue SurePress for edema management. Nurse visit on Wednesday. Continue high-protein diet/supplements. Avoid idle standing.. Elevate lower extremity when seated and in bed. Exercise and weight loss recommended. Follow-up in 1 week. This note was generated with [employer] dictation software. It may contain incorrect words, spelling, and punctuation that were not noted in checking the note before signing.
[2017-07-01 12:05] VITALS: BP 180/94; PULSE 87; RESP 18; TEMP 36.9
[2017-07-05 13:59] VITALS: BP 154/90; PULSE 75; RESP 16; TEMP 37.2
[2017-07-07 09:33] VITALS: RESP 18; TEMP 37.2
--- NOTE | 2017-07-07 14:31 | PCM.WC.PN ---
(1) Abscess of right lower extremity Status: Chronic Current Visit: No Code(s): L02.415 - Cutaneous abscess of right lower limb (2) Cellulitis of leg without foot, right Status: Chronic Current Visit: No Code(s): L03.115 - Cellulitis of right lower limb (3) Non-pressure ulcer of right lower extremity with fat layer exposed Status: Chronic Current Visit: Yes Code(s): L97.912 - Non-pressure chronic ulcer of unspecified part of right lower leg with fat layer exposed Type of Wound Date of Service: 07/07/17 Chief Complaint: Left lower extremity ulcer and cellulitis. Left lower extremity abscess. History of Wound: Ms. Corona is a 31-year-old with past medical history of pulmonary embolism and mood disorders who was referred to the wound clinic by her primary care physician due to poor healing of her left lower extremity wounds. She reports being in a stable state of health until about 3-4 weeks ago when she initially noted burning and stinging of the left lower extremity and believes she was bitten by probably spider. About 2 weeks after that incident she noted flulike symptoms and subsequent worsening pain and redness of her left lower extremity. She was seen by primary care physician and subsequently referred to the emergency room where she was admitted and managed as a case of left lower extremity cellulitis. Since her discharge she had been followed up by her primary care physician and was wrapping her left lower extremity with gauze and Paul wraps. She states that she was recently given a cream by her PCP however she is unsure of the name. She was on antibiotics during her hospital stay and was discharged on doxycycline and Keflex. Wound was said to have been stable without any significant progression however her mother notes that on Wednesday they noted a purulent discharge from opening in her lower leg. She denies chills, fever, nausea, vomiting or otherwise feeling of unwell Progress of Wound: Stable. No new complaints at this time. Started wound Vac last week and is tolerating it. - Physical Exam Vital Signs Temp Pulse Resp BP 98.9 F 75 18 154/90 H 07/07/17 09:33 07/05/17 13:59 07/07/17 09:33 07/05/17 13:59 General: Alert, Oriented x3, Cooperative, No apparent distress HEENT: Atraumatic, Normocephalic Oral: Moist Mucosa Neck: Supple Lungs: Normal air movement Cardiovascular: Regular rate Abdomen: Obese Extremities: No cyanosis, Edema Wound Measurements and Assessment WC - Nurse 1 - General Ulcer Measurement Start: 06/18/17 11:34 Freq: Status: Active Protocol: Activity Type Activity Date Activity User E-Sign Co-Sign Detail Recorded Client Recorded Date Recorded By Document 07/05/17 13:59 [facility] [id number] 07/05/17 14:01 [facility] Document 07/07/17 09:33 [facility] [id number] 07/07/17 09:46 [facility] 07/05/17 07/07/17 13:59 09:33 Wound Center Nurse 1 [Ulcer Assessment] #1 RLE Lateral Devi -Combined with other wound No No -Current Size (cm) - Length 0.9 0.7 -Current Size (cm) - Width 0.5 0.5 -Current Size (cm) - Depth 1.1 1.2 -Total Square Cm 0.45 0.35 -Photo Taken No No -Epithelialization None Present -Tunneling Yes Yes -Tunneling Position (O'clock) 11 11 -Tunneling Distance (cm) 3.1 2.8 -Undermining/Tunneling No No -Exudate Amt Small (1-33%) Small (1-33%) -Exudate Type Sanguineous Sanguineous -Wound Margin Distinct, Distinct, Outline Outline Attached Attached -Granulation Amt Large (67-100%) Large (67-100%) -Granulation Quality Red Red -Slough/Fibrin No No -Necrosis Amt None Present (0 None Present (0 %) %) -Structure Exposed N/A -Texture (Paulina-wound Skin Appearance) Scarring Scarring -Moisture (Paulina-wound Skin Appearance Dry/Scaly Dry/Scaly ) -Color (Paulina-wound Skin Appearance) Assessed Assessed -Temperature (Paulina-wound Skin No Abnormality No Abnormality Appearance) (Pt Warm) (Pt Warm) -Tenderness on Palpation (Paulina-wound No Yes Skin Appearance) -Ulcer Cleansing Rinsed/ Wound Cleanser Irrigated with Saline -Foul Odor after Cleansing No No -Anesthetic Used 4% Lidocaine Solution [Edema Assessment] -Lower Limb Edema Present Yes Yes -Right Calf (cm) 64.8 64.5 -Right Ankle (cm) 33 33.1 WC - Nurse 2 - General Ulcer CM Notes Start: 06/18/17 11:34 Freq: Status: Active Protocol: Activity Type Activity Date Activity User E-Sign Co-Sign Detail Recorded Client Recorded Date Recorded By Document 07/07/17 10:05 DV [id number] 07/07/17 10:07 DV 07/07/17 10:05 Wound Center Nurse 2 [Procedure/Treatment] #1 RLE Lateral Devi -Time 10:05 -Correct Patient Yes -Correct Side, Site, Position Yes -Correct Procedure Yes -Procedure Performed Yes -Type of Procedure Debridement -Clinical Debridement Subcutaneous -Post Debridement Size (cm) - Length 0.7 -Post Debridement Size (cm) - Width 0.5 -Post Debridement Size (cm) - Depth 1.4 -Total Square Cm 0.35 -Wound/Ulcer Outcome Not Healed -Ulcer Cleansing Rinsed/ Irrigated with Saline -Foul Odor after Cleansing No -Bioengineered Tissue No -Bleeding Controlled with Pressure -Treatment Response Procedure Tolerated Well [See Physician Procedure note for Specifics] Pain Scale: 0-10 Numeric [Pain] -Is Patient Pain Free? Yes Musculoskeletal: No Muscle Wasting Psych/Mental Status: Normal Affect Debridement Note Post-Debridement Measurements/Treatment WC - Nurse 2 - General Ulcer CM Notes Start: 06/18/17 11:34 Freq: Status: Active Protocol: Activity Type Activity Date Activity User E-Sign Co-Sign Detail Recorded Client Recorded Date Recorded By Document 06/23/17 12:08 DV [id number] 06/23/17 12:11 DV Document 06/30/17 09:05 DV [id number] 06/30/17 09:06 DV Document 07/07/17 10:05 DV [id number] 07/07/17 10:07 DV 06/23/17 06/30/17 07/07/17 12:08 09:05 10:05 Wound Center Nurse 2 #1 RLE Lateral Devi -Time 12:09 09:05 10:05 -Correct Patient Yes Yes Yes -Correct Side, Site, Position Yes Yes Yes -Correct Procedure Yes Yes Yes -Procedure Performed Yes Yes Yes -Type of Procedure Debridement Debridement Debridement -Clinical Debridement Subcutaneous Subcutaneous Subcutaneous -Post Debridement Size (cm) - Length 1.2 1.1 0.7 -Post Debridement Size (cm) - Width 0.7 0.5 0.5 -Post Debridement Size (cm) - Depth 1.8 1.5 1.4 -Total Square Cm 0.84 0.55 0.35 -Wound/Ulcer Outcome Not Healed Not Healed Not Healed -Ulcer Cleansing Rinsed/ Rinsed/ Rinsed/ Irrigated with Irrigated with Irrigated with Saline Saline Saline -Foul Odor after Cleansing No No No -Bioengineered Tissue No No No -Bleeding Controlled with Pressure Pressure Pressure -Treatment Response Procedure Procedure Procedure Tolerated Well Tolerated Well Tolerated Well Pain Scale: 0-10 Numeric Is Patient Pain Free? Yes Yes Yes Wound debrided: Right Lower Extremity Wound. 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 Right lower leg abscess/ulcer s/p incision and drainage. Morbid obesity. Plan: Some progress noted today. Has tolerated thw owund vac well so far. Debridement done as documented above. procedure was well tolerated. Increase wound Vac to 150mmHg. Continue Surepress for edema management. Continue high-protein diet/supplements. Avoid idle standing.. Elevate lower extremity when seated and in bed. Exercise and weight loss recommended. Follow-up in 1 week. This note was generated with [employer] dictation software. It may contain incorrect words, spelling, and punctuation that were not noted in checking the note before signing.
--- NOTE | 2017-07-07 14:34 | PN.PCM_ITS ---
(1) Abscess of right lower extremity Status: Chronic Current Visit: No Code(s): L02.415 - Cutaneous abscess of right lower limb (2) Cellulitis of leg without foot, right Status: Chronic Current Visit: No Code(s): L03.115 - Cellulitis of right lower limb (3) Non-pressure ulcer of right lower extremity with fat layer exposed Status: Chronic Current Visit: Yes Code(s): L97.912 - Non-pressure chronic ulcer of unspecified part of right lower leg with fat layer exposed Type of Wound Date of Service: 07/07/17 Chief Complaint: Left lower extremity ulcer and cellulitis. Left lower extremity abscess. History of Wound: Ms. Corona is a 31-year-old with past medical history of pulmonary embolism and mood disorders who was referred to the wound clinic by her primary care physician due to poor healing of her left lower extremity wounds. She reports being in a stable state of health until about 3-4 weeks ago when she initially noted burning and stinging of the left lower extremity and believes she was bitten by probably spider. About 2 weeks after that incident she noted flulike symptoms and subsequent worsening pain and redness of her left lower extremity. She was seen by primary care physician and subsequently referred to the emergency room where she was admitted and managed as a case of left lower extremity cellulitis. Since her discharge she had been followed up by her primary care physician and was wrapping her left lower extremity with gauze and Paul wraps. She states that she was recently given a cream by her PCP however she is unsure of the name. She was on antibiotics during her hospital stay and was discharged on doxycycline and Keflex. Wound was said to have been stable without any significant progression however her mother notes that on Wednesday they noted a purulent discharge from opening in her lower leg. She denies chills, fever, nausea, vomiting or otherwise feeling of unwell Progress of Wound: Stable. No new complaints at this time. Started wound Vac last week and is tolerating it. - Physical Exam Vital Signs Temp Pulse Resp BP 98.9 F 75 18 154/90 H 07/07/17 09:33 07/05/17 13:59 07/07/17 09:33 07/05/17 13:59 General: Alert, Oriented x3, Cooperative, No apparent distress HEENT: Atraumatic, Normocephalic Oral: Moist Mucosa Neck: Supple Lungs: Normal air movement Cardiovascular: Regular rate Abdomen: Obese Extremities: No cyanosis, Edema Wound Measurements and Assessment WC - Nurse 1 - General Ulcer Measurement Start: 06/18/17 11:34 Freq: Status: Active Protocol: Activity Type Activity Date Activity User E-Sign Co-Sign Detail Recorded Client Recorded Date Recorded By Document 07/05/17 13:59 [facility] [id number] 07/05/17 14:01 [facility] Document 07/07/17 09:33 [facility] [id number] 07/07/17 09:46 [facility] 07/05/17 07/07/17 13:59 09:33 Wound Center Nurse 1 [Ulcer Assessment] #1 RLE Lateral Devi -Combined with other wound No No -Current Size (cm) - Length 0.9 0.7 -Current Size (cm) - Width 0.5 0.5 -Current Size (cm) - Depth 1.1 1.2 -Total Square Cm 0.45 0.35 -Photo Taken No No -Epithelialization None Present -Tunneling Yes Yes -Tunneling Position (O'clock) 11 11 -Tunneling Distance (cm) 3.1 2.8 -Undermining/Tunneling No No -Exudate Amt Small (1-33%) Small (1-33%) -Exudate Type Sanguineous Sanguineous -Wound Margin Distinct, Distinct, Outline Outline Attached Attached -Granulation Amt Large (67-100%) Large (67-100%) -Granulation Quality Red Red -Slough/Fibrin No No -Necrosis Amt None Present (0 None Present (0 %) %) -Structure Exposed N/A -Texture (Paulina-wound Skin Appearance) Scarring Scarring -Moisture (Paulina-wound Skin Appearance Dry/Scaly Dry/Scaly ) -Color (Paulina-wound Skin Appearance) Assessed Assessed -Temperature (Paulina-wound Skin No Abnormality No Abnormality Appearance) (Pt Warm) (Pt Warm) -Tenderness on Palpation (Paulina-wound No Yes Skin Appearance) -Ulcer Cleansing Rinsed/ Wound Cleanser Irrigated with Saline -Foul Odor after Cleansing No No -Anesthetic Used 4% Lidocaine Solution [Edema Assessment] -Lower Limb Edema Present Yes Yes -Right Calf (cm) 64.8 64.5 -Right Ankle (cm) 33 33.1 WC - Nurse 2 - General Ulcer CM Notes Start: 06/18/17 11:34 Freq: Status: Active Protocol: Activity Type Activity Date Activity User E-Sign Co-Sign Detail Recorded Client Recorded Date Recorded By Document 07/07/17 10:05 DV [id number] 07/07/17 10:07 DV 07/07/17 10:05 Wound Center Nurse 2 [Procedure/Treatment] #1 RLE Lateral Devi -Time 10:05 -Correct Patient Yes -Correct Side, Site, Position Yes -Correct Procedure Yes -Procedure Performed Yes -Type of Procedure Debridement -Clinical Debridement Subcutaneous -Post Debridement Size (cm) - Length 0.7 -Post Debridement Size (cm) - Width 0.5 -Post Debridement Size (cm) - Depth 1.4 -Total Square Cm 0.35 -Wound/Ulcer Outcome Not Healed -Ulcer Cleansing Rinsed/ Irrigated with Saline -Foul Odor after Cleansing No -Bioengineered Tissue No -Bleeding Controlled with Pressure -Treatment Response Procedure Tolerated Well [See Physician Procedure note for Specifics] Pain Scale: 0-10 Numeric [Pain] -Is Patient Pain Free? Yes Musculoskeletal: No Muscle Wasting Psych/Mental Status: Normal Affect Debridement Note Post-Debridement Measurements/Treatment WC - Nurse 2 - General Ulcer CM Notes Start: 06/18/17 11:34 Freq: Status: Active Protocol: Activity Type Activity Date Activity User E-Sign Co-Sign Detail Recorded Client Recorded Date Recorded By Document 06/23/17 12:08 DV [id number] 06/23/17 12:11 DV Document 06/30/17 09:05 DV [id number] 06/30/17 09:06 DV Document 07/07/17 10:05 DV [id number] 07/07/17 10:07 DV 06/23/17 06/30/17 07/07/17 12:08 09:05 10:05 Wound Center Nurse 2 #1 RLE Lateral Devi -Time 12:09 09:05 10:05 -Correct Patient Yes Yes Yes -Correct Side, Site, Position Yes Yes Yes -Correct Procedure Yes Yes Yes -Procedure Performed Yes Yes Yes -Type of Procedure Debridement Debridement Debridement -Clinical Debridement Subcutaneous Subcutaneous Subcutaneous -Post Debridement Size (cm) - Length 1.2 1.1 0.7 -Post Debridement Size (cm) - Width 0.7 0.5 0.5 -Post Debridement Size (cm) - Depth 1.8 1.5 1.4 -Total Square Cm 0.84 0.55 0.35 -Wound/Ulcer Outcome Not Healed Not Healed Not Healed -Ulcer Cleansing Rinsed/ Rinsed/ Rinsed/ Irrigated with Irrigated with Irrigated with Saline Saline Saline -Foul Odor after Cleansing No No No -Bioengineered Tissue No No No -Bleeding Controlled with Pressure Pressure Pressure -Treatment Response Procedure Procedure Procedure Tolerated Well Tolerated Well Tolerated Well Pain Scale: 0-10 Numeric Is Patient Pain Free? Yes Yes Yes Wound debrided: Right Lower Extremity Wound. 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 Right lower leg abscess/ulcer s/p incision and drainage. Morbid obesity. Plan: Some progress noted today. Has tolerated thw owund vac well so far. Debridement done as documented above. procedure was well tolerated. Increase wound Vac to 150mmHg. Continue Surepress for edema management. Continue high- protein diet/supplements. Avoid idle standing.. Elevate lower extremity when seated and in bed. Exercise and weight loss recommended. Follow-up in 1 week. This note was generated with [employer] dictation software. It may contain incorrect words, spelling, and punctuation that were not noted in checking the note before signing.
[2017-07-14 09:01] VITALS: BP 151/113; PULSE 103; RESP 18; TEMP 36.9
--- NOTE | 2017-07-14 17:47 | PCM.WC.PN ---
(1) Abscess of right lower extremity Status: Chronic Current Visit: No Code(s): L02.415 - Cutaneous abscess of right lower limb (2) Cellulitis of leg without foot, right Status: Chronic Current Visit: No Code(s): L03.115 - Cellulitis of right lower limb (3) Non-pressure ulcer of right lower extremity with fat layer exposed Status: Chronic Current Visit: Yes Code(s): L97.912 - Non-pressure chronic ulcer of unspecified part of right lower leg with fat layer exposed Type of Wound Date of Service: 07/14/17 Chief Complaint: Left lower extremity ulcer and cellulitis. Left lower extremity abscess. History of Wound: Ms. Corona is a 31-year-old with past medical history of pulmonary embolism and mood disorders who was referred to the wound clinic by her primary care physician due to poor healing of her left lower extremity wounds. She reports being in a stable state of health until about 3-4 weeks ago when she initially noted burning and stinging of the left lower extremity and believes she was bitten by probably spider. About 2 weeks after that incident she noted flulike symptoms and subsequent worsening pain and redness of her left lower extremity. She was seen by primary care physician and subsequently referred to the emergency room where she was admitted and managed as a case of left lower extremity cellulitis. Since her discharge she had been followed up by her primary care physician and was wrapping her left lower extremity with gauze and Paul wraps. She states that she was recently given a cream by her PCP however she is unsure of the name. She was on antibiotics during her hospital stay and was discharged on doxycycline and Keflex. Wound was said to have been stable without any significant progression however her mother notes that on Wednesday they noted a purulent discharge from opening in her lower leg. She denies chills, fever, nausea, vomiting or otherwise feeling of unwell Progress of Wound: Stable. - Physical Exam Vital Signs Temp Pulse Resp BP 98.4 F 103 H 18 151/113 H 07/14/17 09:01 07/14/17 09:01 07/14/17 09:01 07/14/17 09:01 General: Alert, Oriented x3, Cooperative, No apparent distress HEENT: Atraumatic, Normocephalic Oral: Moist Mucosa Neck: Supple Lungs: Normal air movement Cardiovascular: Regular rate Abdomen: Obese Extremities: No cyanosis Skin: Ulcer/ Wound Wound Measurements and Assessment WC - Nurse 1 - General Ulcer Measurement Start: 06/18/17 11:34 Freq: Status: Active Protocol: Activity Type Activity Date Activity User E-Sign Co-Sign Detail Recorded Client Recorded Date Recorded By Document 07/14/17 09:01 MW [id number] 07/14/17 09:03 MW 07/14/17 09:01 Wound Center Nurse 1 [Ulcer Assessment] #1 RLE Lateral Devi -Combined with other wound No -Current Size (cm) - Length 0.8 -Current Size (cm) - Width 0.4 -Current Size (cm) - Depth 1.8 -Total Square Cm 0.32 -Photo Taken No -Epithelialization None Present -Tunneling No -Undermining/Tunneling No -Circular Undermining No -Exudate Amt Small (1-33%) -Exudate Type Serosanguineous -Wound Margin Indistinct, Non -Visible -Granulation Amt Small (1-33%) -Granulation Quality Red -Slough/Fibrin Yes -Necrosis Amt Small (1-33%) -Necrotic Tissue Type Adherent Slough -Structure Exposed N/A -Texture (Paulina-wound Skin Appearance) Assessed Localized Edema -Moisture (Paulina-wound Skin Appearance No Abnormality ) Assessed -Color (Paulina-wound Skin Appearance) Assessed Hemosiderin Staining -Temperature (Paulina-wound Skin No Abnormality Appearance) (Pt Warm) -Tenderness on Palpation (Paulina-wound No Skin Appearance) -Ulcer Cleansing Rinsed/ Irrigated with Saline -Foul Odor after Cleansing No -Anesthetic Used 4% Lidocaine Solution [Edema Assessment] -Lower Limb Edema Present Yes -Right Calf (cm) 63.6 -Right Ankle (cm) 34.5 WC - Nurse 2 - General Ulcer CM Notes Start: 06/18/17 11:34 Freq: Status: Active Protocol: Activity Type Activity Date Activity User E-Sign Co-Sign Detail Recorded Client Recorded Date Recorded By Document 07/14/17 10:09 DV [id number] 07/14/17 10:10 DV 07/14/17 10:09 Wound Center Nurse 2 [Procedure/Treatment] #1 RLE Lateral Devi -Time 10:09 -Correct Patient Yes -Correct Side, Site, Position Yes -Correct Procedure Yes -Procedure Performed Yes -Type of Procedure Debridement -Clinical Debridement Subcutaneous -Post Debridement Size (cm) - Length 0.8 -Post Debridement Size (cm) - Width 0.4 -Post Debridement Size (cm) - Depth 1.8 -Total Square Cm 0.32 -Wound/Ulcer Outcome Not Healed -Ulcer Cleansing Rinsed/ Irrigated with Saline -Foul Odor after Cleansing No -Bioengineered Tissue No -Bleeding Controlled with Pressure -Treatment Response Procedure Tolerated Well [See Physician Procedure note for Specifics] Pain Scale: 0-10 Numeric [Pain] -Is Patient Pain Free? Yes Musculoskeletal: No Muscle Wasting Neurological: Cranial nerves II-XII grossly intact Psych/Mental Status: Normal Affect Debridement Note Post-Debridement Measurements/Treatment WC - Nurse 2 - General Ulcer CM Notes Start: 06/18/17 11:34 Freq: Status: Active Protocol: Activity Type Activity Date Activity User E-Sign Co-Sign Detail Recorded Client Recorded Date Recorded By Document 06/23/17 12:08 DV [id number] 06/23/17 12:11 DV Document 06/30/17 09:05 DV [id number] 06/30/17 09:06 DV Document 07/07/17 10:05 DV [id number] 07/07/17 10:07 DV Document 07/14/17 10:09 DV [id number] 07/14/17 10:10 DV 06/23/17 06/30/17 07/07/17 12:08 09:05 10:05 Wound Center Nurse 2 #1 RLE Lateral Devi -Time 12:09 09:05 10:05 -Correct Patient Yes Yes Yes -Correct Side, Site, Position Yes Yes Yes -Correct Procedure Yes Yes Yes -Procedure Performed Yes Yes Yes -Type of Procedure Debridement Debridement Debridement -Clinical Debridement Subcutaneous Subcutaneous Subcutaneous -Post Debridement Size (cm) - Length 1.2 1.1 0.7 -Post Debridement Size (cm) - Width 0.7 0.5 0.5 -Post Debridement Size (cm) - Depth 1.8 1.5 1.4 -Total Square Cm 0.84 0.55 0.35 -Wound/Ulcer Outcome Not Healed Not Healed Not Healed -Ulcer Cleansing Rinsed/ Rinsed/ Rinsed/ Irrigated with Irrigated with Irrigated with Saline Saline Saline -Foul Odor after Cleansing No No No -Bioengineered Tissue No No No -Bleeding Controlled with Pressure Pressure Pressure -Treatment Response Procedure Procedure Procedure Tolerated Well Tolerated Well Tolerated Well Pain Scale: 0-10 Numeric Is Patient Pain Free? Yes Yes Yes 07/14/17 10:09 Wound Center Nurse 2 #1 RLE Lateral Devi -Time 10:09 -Correct Patient Yes -Correct Side, Site, Position Yes -Correct Procedure Yes -Procedure Performed Yes -Type of Procedure Debridement -Clinical Debridement Subcutaneous -Post Debridement Size (cm) - Length 0.8 -Post Debridement Size (cm) - Width 0.4 -Post Debridement Size (cm) - Depth 1.8 -Total Square Cm 0.32 -Wound/Ulcer Outcome Not Healed -Ulcer Cleansing Rinsed/ Irrigated with Saline -Foul Odor after Cleansing No -Bioengineered Tissue No -Bleeding Controlled with Pressure -Treatment Response Procedure Tolerated Well Pain Scale: 0-10 Numeric Is Patient Pain Free? Yes Wound debrided: right lower extremity ulcer/cavity Wound Grade/Stage: Stage II Type of Debridement: Excisional debridement Anesthesia Used: 4% Lidocaine Solution Depth: Down to and including healthy tissue, in the subcutaneous layer Percentage of wound debrided: 100 Instrument Used: 3mm curette Tissue Removed: SLough and Devitalized tissue Severity: Fat Layer Exposed Amount of bleeding with debridement: Mild Bleeding Controlled with: Pressure Patient tolerated procedure well Assessment/Plan Active Problems Non-pressure ulcer of right lower extremity with fat layer exposed (Chronic) Assessment: Cellulitis and ulcer of Right lower extremity possibly secondary to spider bite. Right lower leg abscess/ulcer s/p incision and drainage. Morbid obesity. Plan: Stable. No significant reduction in depth because patient has had problems with her wound VAC after returning to work next week. Debridement done as documented above. Procedure was well-tolerated. Continue wound VAC at 150mmHg. Continue Surepress for edema management. Continue high-protein diet/supplements. Avoid idle standing.. Elevate lower extremity when seated and in bed. Exercise and weight loss recommended. No return to work until further notice. Follow-up in 1 week. This note was generated with [employer] dictation software. It may contain incorrect words, spelling, and punctuation that were not noted in checking the note before signing.
--- NOTE | 2017-07-14 17:50 | PN.PCM_ITS ---
(1) Abscess of right lower extremity Status: Chronic Current Visit: No Code(s): L02.415 - Cutaneous abscess of right lower limb (2) Cellulitis of leg without foot, right Status: Chronic Current Visit: No Code(s): L03.115 - Cellulitis of right lower limb (3) Non-pressure ulcer of right lower extremity with fat layer exposed Status: Chronic Current Visit: Yes Code(s): L97.912 - Non-pressure chronic ulcer of unspecified part of right lower leg with fat layer exposed Type of Wound Date of Service: 07/14/17 Chief Complaint: Left lower extremity ulcer and cellulitis. Left lower extremity abscess. History of Wound: Ms. Corona is a 31-year-old with past medical history of pulmonary embolism and mood disorders who was referred to the wound clinic by her primary care physician due to poor healing of her left lower extremity wounds. She reports being in a stable state of health until about 3-4 weeks ago when she initially noted burning and stinging of the left lower extremity and believes she was bitten by probably spider. About 2 weeks after that incident she noted flulike symptoms and subsequent worsening pain and redness of her left lower extremity. She was seen by primary care physician and subsequently referred to the emergency room where she was admitted and managed as a case of left lower extremity cellulitis. Since her discharge she had been followed up by her primary care physician and was wrapping her left lower extremity with gauze and Paul wraps. She states that she was recently given a cream by her PCP however she is unsure of the name. She was on antibiotics during her hospital stay and was discharged on doxycycline and Keflex. Wound was said to have been stable without any significant progression however her mother notes that on Wednesday they noted a purulent discharge from opening in her lower leg. She denies chills, fever, nausea, vomiting or otherwise feeling of unwell Progress of Wound: Stable. - Physical Exam Vital Signs Temp Pulse Resp BP 98.4 F 103 H 18 151/113 H 07/14/17 09:01 07/14/17 09:01 07/14/17 09:01 07/14/17 09:01 General: Alert, Oriented x3, Cooperative, No apparent distress HEENT: Atraumatic, Normocephalic Oral: Moist Mucosa Neck: Supple Lungs: Normal air movement Cardiovascular: Regular rate Abdomen: Obese Extremities: No cyanosis Skin: Ulcer/ Wound Wound Measurements and Assessment WC - Nurse 1 - General Ulcer Measurement Start: 06/18/17 11:34 Freq: Status: Active Protocol: Activity Type Activity Date Activity User E-Sign Co-Sign Detail Recorded Client Recorded Date Recorded By Document 07/14/17 09:01 MW [id number] 07/14/17 09:03 MW 07/14/17 09:01 Wound Center Nurse 1 [Ulcer Assessment] #1 RLE Lateral Devi -Combined with other wound No -Current Size (cm) - Length 0.8 -Current Size (cm) - Width 0.4 -Current Size (cm) - Depth 1.8 -Total Square Cm 0.32 -Photo Taken No -Epithelialization None Present -Tunneling No -Undermining/Tunneling No -Circular Undermining No -Exudate Amt Small (1-33%) -Exudate Type Serosanguineous -Wound Margin Indistinct, Non -Visible -Granulation Amt Small (1-33%) -Granulation Quality Red -Slough/Fibrin Yes -Necrosis Amt Small (1-33%) -Necrotic Tissue Type Adherent Slough -Structure Exposed N/A -Texture (Paulina-wound Skin Appearance) Assessed Localized Edema -Moisture (Paulina-wound Skin Appearance No Abnormality ) Assessed -Color (Paulina-wound Skin Appearance) Assessed Hemosiderin Staining -Temperature (Paulina-wound Skin No Abnormality Appearance) (Pt Warm) -Tenderness on Palpation (Paulina-wound No Skin Appearance) -Ulcer Cleansing Rinsed/ Irrigated with Saline -Foul Odor after Cleansing No -Anesthetic Used 4% Lidocaine Solution [Edema Assessment] -Lower Limb Edema Present Yes -Right Calf (cm) 63.6 -Right Ankle (cm) 34.5 WC - Nurse 2 - General Ulcer CM Notes Start: 06/18/17 11:34 Freq: Status: Active Protocol: Activity Type Activity Date Activity User E-Sign Co-Sign Detail Recorded Client Recorded Date Recorded By Document 07/14/17 10:09 DV [id number] 07/14/17 10:10 DV 07/14/17 10:09 Wound Center Nurse 2 [Procedure/Treatment] #1 RLE Lateral Devi -Time 10:09 -Correct Patient Yes -Correct Side, Site, Position Yes -Correct Procedure Yes -Procedure Performed Yes -Type of Procedure Debridement -Clinical Debridement Subcutaneous -Post Debridement Size (cm) - Length 0.8 -Post Debridement Size (cm) - Width 0.4 -Post Debridement Size (cm) - Depth 1.8 -Total Square Cm 0.32 -Wound/Ulcer Outcome Not Healed -Ulcer Cleansing Rinsed/ Irrigated with Saline -Foul Odor after Cleansing No -Bioengineered Tissue No -Bleeding Controlled with Pressure -Treatment Response Procedure Tolerated Well [See Physician Procedure note for Specifics] Pain Scale: 0-10 Numeric [Pain] -Is Patient Pain Free? Yes Musculoskeletal: No Muscle Wasting Neurological: Cranial nerves II-XII grossly intact Psych/Mental Status: Normal Affect Debridement Note Post-Debridement Measurements/Treatment WC - Nurse 2 - General Ulcer CM Notes Start: 06/18/17 11:34 Freq: Status: Active Protocol: Activity Type Activity Date Activity User E-Sign Co-Sign Detail Recorded Client Recorded Date Recorded By Document 06/23/17 12:08 DV [id number] 06/23/17 12:11 DV Document 06/30/17 09:05 DV [id number] 06/30/17 09:06 DV Document 07/07/17 10:05 DV [id number] 07/07/17 10:07 DV Document 07/14/17 10:09 DV [id number] 07/14/17 10:10 DV 06/23/17 06/30/17 07/07/17 12:08 09:05 10:05 Wound Center Nurse 2 #1 RLE Lateral Devi -Time 12:09 09:05 10:05 -Correct Patient Yes Yes Yes -Correct Side, Site, Position Yes Yes Yes -Correct Procedure Yes Yes Yes -Procedure Performed Yes Yes Yes -Type of Procedure Debridement Debridement Debridement -Clinical Debridement Subcutaneous Subcutaneous Subcutaneous -Post Debridement Size (cm) - Length 1.2 1.1 0.7 -Post Debridement Size (cm) - Width 0.7 0.5 0.5 -Post Debridement Size (cm) - Depth 1.8 1.5 1.4 -Total Square Cm 0.84 0.55 0.35 -Wound/Ulcer Outcome Not Healed Not Healed Not Healed -Ulcer Cleansing Rinsed/ Rinsed/ Rinsed/ Irrigated with Irrigated with Irrigated with Saline Saline Saline -Foul Odor after Cleansing No No No -Bioengineered Tissue No No No -Bleeding Controlled with Pressure Pressure Pressure -Treatment Response Procedure Procedure Procedure Tolerated Well Tolerated Well Tolerated Well Pain Scale: 0-10 Numeric Is Patient Pain Free? Yes Yes Yes 07/14/17 10:09 Wound Center Nurse 2 #1 RLE Lateral Devi -Time 10:09 -Correct Patient Yes -Correct Side, Site, Position Yes -Correct Procedure Yes -Procedure Performed Yes -Type of Procedure Debridement -Clinical Debridement Subcutaneous -Post Debridement Size (cm) - Length 0.8 -Post Debridement Size (cm) - Width 0.4 -Post Debridement Size (cm) - Depth 1.8 -Total Square Cm 0.32 -Wound/Ulcer Outcome Not Healed -Ulcer Cleansing Rinsed/ Irrigated with Saline -Foul Odor after Cleansing No -Bioengineered Tissue No -Bleeding Controlled with Pressure -Treatment Response Procedure Tolerated Well Pain Scale: 0-10 Numeric Is Patient Pain Free? Yes Wound debrided: right lower extremity ulcer/cavity Wound Grade/Stage: Stage II Type of Debridement: Excisional debridement Anesthesia Used: 4% Lidocaine Solution Depth: Down to and including healthy tissue, in the subcutaneous layer Percentage of wound debrided: 100 Instrument Used: 3mm curette Tissue Removed: SLough and Devitalized tissue Severity: Fat Layer Exposed Amount of bleeding with debridement: Mild Bleeding Controlled with: Pressure Patient tolerated procedure well Assessment/Plan Active Problems Non-pressure ulcer of right lower extremity with fat layer exposed (Chronic) Assessment: Cellulitis and ulcer of Right lower extremity possibly secondary to spider bite. Right lower leg abscess/ulcer s/p incision and drainage. Morbid obesity. Plan: Stable. No significant reduction in depth because patient has had problems with her wound VAC after returning to work next week. Debridement done as documented above. Procedure was well-tolerated. Continue wound VAC at 150mmHg. Continue Surepress for edema management. Continue high-protein diet/ supplements. Avoid idle standing.. Elevate lower extremity when seated and in bed. Exercise and weight loss recommended. No return to work until further notice. Follow-up in 1 week. This note was generated with [employer] dictation software. It may contain incorrect words, spelling, and punctuation that were not noted in checking the note before signing.
== END 2017-07-17 23:59 ==
LOC: WC 09:00
PROVIDERS: Family Provider Family Medicine; PCP Family Medicine; Visit Provider Internal Medicine
DX: L97.812 Non-pressure chronic ulcer of other part of right lower leg with fat layer exposed (principal); E66.01 Morbid (severe) obesity due to excess calories; Z71.3 Dietary counseling and surveillance; L03.115 Cellulitis of right lower limb; L02.415 Cutaneous abscess of right lower limb; Z86.711 Personal history of pulmonary embolism
CPT/HCPCS: 11042; 29581; 97605; 99211; 99212; 99213; G0463

== ENCOUNTER 2017-08-11 10:00 | Outpatient (RCR) | payer OTHER, SELFPAY ==
[2017-07-18 00:53] VITALS: BP 150/98; PULSE 103; RESP 18; TEMP 36.9
[2017-07-21 10:29] VITALS: BP 161/98; PULSE 80; RESP 16; TEMP 36.7
--- NOTE | 2017-07-21 19:40 | PN.PCM_ITS ---
(1) Abscess of right lower extremity Status: Chronic Current Visit: No Code(s): L02.415 - Cutaneous abscess of right lower limb (2) Non-pressure ulcer of right lower extremity with fat layer exposed Status: Chronic Current Visit: Yes Code(s): L97.912 - Non-pressure chronic ulcer of unspecified part of right lower leg with fat layer exposed (3) Obesity Status: Chronic Current Visit: Yes Code(s): E66.9 - Obesity, unspecified Type of Wound Date of Service: 07/21/17 Chief Complaint: Left lower extremity ulcer and cellulitis. Left lower extremity abscess. History of Wound: Ms. Corona is a 31-year-old with past medical history of pulmonary embolism and mood disorders who was referred to the wound clinic by her primary care physician due to poor healing of her left lower extremity wounds. She reports being in a stable state of health until about 3-4 weeks ago when she initially noted burning and stinging of the left lower extremity and believes she was bitten by probably spider. About 2 weeks after that incident she noted flulike symptoms and subsequent worsening pain and redness of her left lower extremity. She was seen by primary care physician and subsequently referred to the emergency room where she was admitted and managed as a case of left lower extremity cellulitis. Since her discharge she had been followed up by her primary care physician and was wrapping her left lower extremity with gauze and Paul wraps. She states that she was recently given a cream by her PCP however she is unsure of the name. She was on antibiotics during her hospital stay and was discharged on doxycycline and Keflex. Wound was said to have been stable without any significant progression however her mother notes that on Wednesday they noted a purulent discharge from opening in her lower leg. She denies chills, fever, nausea, vomiting or otherwise feeling of unwell Progress of Wound: Improving. - Physical Exam Vital Signs Temp Pulse Resp BP 98.0 F 80 16 161/98 H 07/21/17 10:29 07/21/17 10:29 07/21/17 10:29 07/21/17 10:29 General: Alert, Oriented x3, Cooperative HEENT: Atraumatic, Normocephalic Oral: Moist Mucosa Neck: Supple Lungs: Normal air movement Cardiovascular: Regular rate Abdomen: Obese Extremities: No cyanosis, Edema Skin: Ulcer/ Wound Wound Measurements and Assessment KATHLEEN - Nurse 1 - General Ulcer Measurement Start: 07/21/17 10:29 Freq: Status: Active Protocol: Activity Type Activity Date Activity User E-Sign Co-Sign Detail Recorded Client Recorded Date Recorded By Document 07/21/17 10:29 MW [id number] 07/21/17 10:38 MW 07/21/17 10:29 Wound Center Nurse 1 [Ulcer Assessment] #1 RLE Lateral Devi -Combined with other wound No -Current Size (cm) - Length 0.5 -Current Size (cm) - Width 0.3 -Current Size (cm) - Depth 1.5 -Total Square Cm 0.15 -Photo Taken No -Epithelialization None Present -Tunneling No -Undermining/Tunneling No -Circular Undermining No -Exudate Amt Small (1-33%) -Exudate Type Serosanguineous -Wound Margin Indistinct, Non -Visible -Granulation Amt None Present (0 %) -Granulation Quality N/A -Slough/Fibrin No -Necrosis Amt None Present (0 %) -Structure Exposed N/A -Texture (Paulina-wound Skin Appearance) Assessed Localized Edema -Moisture (Paulina-wound Skin Appearance No Abnormality ) Assessed -Color (Paulina-wound Skin Appearance) Assessed Hemosiderin Staining -Temperature (Paulina-wound Skin No Abnormality Appearance) (Pt Warm) -Tenderness on Palpation (Paulina-wound No Skin Appearance) -Ulcer Cleansing Rinsed/ Irrigated with Saline -Foul Odor after Cleansing No -Anesthetic Used 4% Lidocaine Solution [Edema Assessment] -Lower Limb Edema Present Yes -Right Calf (cm) 63.5 -Right Ankle (cm) 35.0 - Nurse 2 - General Ulcer CM Notes Start: 07/21/17 10:29 Freq: Status: Active Protocol: Activity Type Activity Date Activity User E-Sign Co-Sign Detail Recorded Client Recorded Date Recorded By Document 07/21/17 10:56 DV [id number] 07/21/17 11:00 DV 07/21/17 10:56 Wound Center Nurse 2 [Procedure/Treatment] #1 RLE Lateral Devi -Time 10:57 -Correct Patient Yes -Correct Side, Site, Position Yes -Correct Procedure Yes -Procedure Performed Yes -Type of Procedure Debridement -Clinical Debridement Subcutaneous -Post Debridement Size (cm) - Length 0.6 -Post Debridement Size (cm) - Width 0.4 -Post Debridement Size (cm) - Depth 1.5 -Total Square Cm 0.24 -Wound/Ulcer Outcome Not Healed -Ulcer Cleansing Rinsed/ Irrigated with Saline -Foul Odor after Cleansing No -Bioengineered Tissue No -Bleeding Controlled with Pressure -Treatment Response Procedure Tolerated Well [See Physician Procedure note for Specifics] Pain Scale: 0-10 Numeric [Pain] -Is Patient Pain Free? Yes Musculoskeletal: No Muscle Wasting Neurological: Cranial nerves II-XII grossly intact Psych/Mental Status: Normal Affect Debridement Note Post-Debridement Measurements/Treatment WC - Nurse 2 - General Ulcer CM Notes Start: 07/21/17 10:29 Freq: Status: Active Protocol: Activity Type Activity Date Activity User E-Sign Co-Sign Detail Recorded Client Recorded Date Recorded By Document 07/21/17 10:56 DV [id number] 07/21/17 11:00 DV 07/21/17 10:56 Wound Center Nurse 2 #1 RLE Lateral Devi -Time 10:57 -Correct Patient Yes -Correct Side, Site, Position Yes -Correct Procedure Yes -Procedure Performed Yes -Type of Procedure Debridement -Clinical Debridement Subcutaneous -Post Debridement Size (cm) - Length 0.6 -Post Debridement Size (cm) - Width 0.4 -Post Debridement Size (cm) - Depth 1.5 -Total Square Cm 0.24 -Wound/Ulcer Outcome Not Healed -Ulcer Cleansing Rinsed/ Irrigated with Saline -Foul Odor after Cleansing No -Bioengineered Tissue No -Bleeding Controlled with Pressure -Treatment Response Procedure Tolerated Well Pain Scale: 0-10 Numeric Is Patient Pain Free? Yes Wound debrided: Right Lower extremity ulcer/cavity/abscess Wound Grade/Stage: Satge II Type of Debridement: Excisional debridement Anesthesia Used: 4% Lidocaine Solution Depth: Down to and including healthy tissue, in the subcutaneous layer Percentage of wound debrided: 100 Instrument Used: 3mm curette Tissue Removed: Slough and Devitalized tissue Severity: Fat Layer Exposed Amount of bleeding with debridement: Mild Bleeding Controlled with: Pressure Patient tolerated procedure well Assessment/Plan Active Problems Non-pressure ulcer of right lower extremity with fat layer exposed (Chronic) Obesity (Chronic) Assessment: Cellulitis and ulcer of Right lower extremity possibly secondary to spider bite. Right lower leg abscess/ulcer s/p incision and drainage. Morbid obesity. Plan: Better improvement in wound depth and circumference noted this week. She has used her wound VAC better also. Debridement done as documented above. Procedure was well-tolerated. Continue wound VAC at 150mmHg. Continue Surepress for edema management. Continue high-protein diet/supplements. Avoid idle standing.. Elevate lower extremity when seated and in bed. Exercise and weight loss recommended. No return to work until further notice. Follow-up in 2 weeks. This note was generated with [employer] dictation software. It may contain incorrect words, spelling, and punctuation that were not noted in checking the note before signing.
[2017-08-04 10:33] VITALS: BP 157/98; PULSE 91; RESP 20; TEMP 37
--- NOTE | 2017-08-04 23:42 | PN.PCM_ITS ---
(1) Abscess of right lower extremity Status: Chronic Current Visit: No Code(s): L02.415 - Cutaneous abscess of right lower limb (2) Non-pressure ulcer of right lower extremity with fat layer exposed Status: Chronic Current Visit: Yes Code(s): L97.912 - Non-pressure chronic ulcer of unspecified part of right lower leg with fat layer exposed (3) Obesity Status: Chronic Current Visit: Yes Code(s): E66.9 - Obesity, unspecified Type of Wound Date of Service: 08/04/17 Chief Complaint: Left lower extremity ulcer and cellulitis. Left lower extremity abscess. History of Wound: Ms. Corona is a 31-year-old with past medical history of pulmonary embolism and mood disorders who was referred to the wound clinic by her primary care physician due to poor healing of her left lower extremity wounds. She reports being in a stable state of health until about 3-4 weeks ago when she initially noted burning and stinging of the left lower extremity and believes she was bitten by probably spider. About 2 weeks after that incident she noted flulike symptoms and subsequent worsening pain and redness of her left lower extremity. She was seen by primary care physician and subsequently referred to the emergency room where she was admitted and managed as a case of left lower extremity cellulitis. Since her discharge she had been followed up by her primary care physician and was wrapping her left lower extremity with gauze and Paul wraps. She states that she was recently given a cream by her PCP however she is unsure of the name. She was on antibiotics during her hospital stay and was discharged on doxycycline and Keflex. Wound was said to have been stable without any significant progression however her mother notes that on Wednesday they noted a purulent discharge from opening in her lower leg. She denies chills, fever, nausea, vomiting or otherwise feeling of unwell Progress of Wound: Improving. - Physical Exam Vital Signs Temp Pulse Resp BP 98.6 F 91 20 H 157/98 H 08/04/17 10:33 08/04/17 10:33 08/04/17 10:33 08/04/17 10:33 General: Alert, Oriented x3, Cooperative, No apparent distress HEENT: Atraumatic, Normocephalic Oral: Moist Mucosa Neck: No JVD Lungs: Normal air movement Abdomen: Non Tender, Obese Extremities: No cyanosis, Edema Skin: Ulcer/ Wound Wound Measurements and Assessment WC - Nurse 1 - General Ulcer Measurement Start: 07/21/17 10:29 Freq: Status: Active Protocol: Activity Type Activity Date Activity User E-Sign Co-Sign Detail Recorded Client Recorded Date Recorded By Document 08/04/17 10:33 MW [id number] 08/04/17 10:35 MW 08/04/17 10:33 Wound Center Nurse 1 [Ulcer Assessment] #1 RLE Lateral Devi -Combined with other wound No -Current Size (cm) - Length 0.4 -Current Size (cm) - Width 0.4 -Current Size (cm) - Depth 0.8 -Total Square Cm 0.16 -Photo Taken No -Epithelialization None Present -Tunneling Yes -Tunneling Position (O'clock) 11 -Tunneling Distance (cm) 0.3 -Undermining/Tunneling No -Circular Undermining No -Exudate Amt Small (1-33%) -Exudate Type Sanguineous -Wound Margin Indistinct, Non -Visible -Granulation Amt Small (1-33%) -Granulation Quality Red -Slough/Fibrin Yes -Necrosis Amt Small (1-33%) -Necrotic Tissue Type Adherent Slough -Structure Exposed N/A -Texture (Paulina-wound Skin Appearance) Assessed Localized Edema Scarring -Moisture (Paulina-wound Skin Appearance No Abnormality ) Assessed -Color (Paulina-wound Skin Appearance) Assessed Rubor -Temperature (Paulina-wound Skin No Abnormality Appearance) (Pt Warm) -Ulcer Cleansing Rinsed/ Irrigated with Saline -Foul Odor after Cleansing No -Anesthetic Used 4% Lidocaine Solution [Edema Assessment] -Lower Limb Edema Present Yes -Right Calf (cm) 65.5 -Right Ankle (cm) 35.0 WC - Nurse 2 - General Ulcer CM Notes Start: 07/21/17 10:29 Freq: Status: Active Protocol: Activity Type Activity Date Activity User E-Sign Co-Sign Detail Recorded Client Recorded Date Recorded By Document 08/04/17 11:20 DV [id number] 08/04/17 11:25 DV 08/04/17 11:20 Wound Center Nurse 2 [Procedure/Treatment] #1 RLE Lateral Devi -Time 11:21 -Correct Patient Yes -Correct Side, Site, Position Yes -Correct Procedure Yes -Procedure Performed Yes -Type of Procedure Debridement -Clinical Debridement Subcutaneous -Post Debridement Size (cm) - Length 0.6 -Post Debridement Size (cm) - Width 0.6 -Post Debridement Size (cm) - Depth 1.2 -Total Square Cm 0.36 -Wound/Ulcer Outcome Not Healed -Ulcer Cleansing Rinsed/ Irrigated with Saline -Foul Odor after Cleansing No -Bioengineered Tissue No -Bleeding Controlled with Pressure -Treatment Response Procedure Tolerated Well [See Physician Procedure note for Specifics] Pain Scale: 0-10 Numeric [Pain] -Is Patient Pain Free? Yes Musculoskeletal: No Muscle Wasting Neurological: Cranial nerves II-XII grossly intact Psych/Mental Status: Normal Affect Debridement Note Post-Debridement Measurements/Treatment WC - Nurse 2 - General Ulcer CM Notes Start: 07/21/17 10:29 Freq: Status: Active Protocol: Activity Type Activity Date Activity User E-Sign Co-Sign Detail Recorded Client Recorded Date Recorded By Document 07/21/17 10:56 DV [id number] 07/21/17 11:00 DV Document 08/04/17 11:20 DV [id number] 08/04/17 11:25 DV 07/21/17 08/04/17 10:56 11:20 Wound Center Nurse 2 #1 RLE Lateral Devi -Time 10:57 11:21 -Correct Patient Yes Yes -Correct Side, Site, Position Yes Yes -Correct Procedure Yes Yes -Procedure Performed Yes Yes -Type of Procedure Debridement Debridement -Clinical Debridement Subcutaneous Subcutaneous -Post Debridement Size (cm) - Length 0.6 0.6 -Post Debridement Size (cm) - Width 0.4 0.6 -Post Debridement Size (cm) - Depth 1.5 1.2 -Total Square Cm 0.24 0.36 -Wound/Ulcer Outcome Not Healed Not Healed -Ulcer Cleansing Rinsed/ Rinsed/ Irrigated with Irrigated with Saline Saline -Foul Odor after Cleansing No No -Bioengineered Tissue No No -Bleeding Controlled with Pressure Pressure -Treatment Response Procedure Procedure Tolerated Well Tolerated Well Pain Scale: 0-10 Numeric Is Patient Pain Free? Yes Yes Wound debrided: Right Lower extremity ulcer/cavity Wound Grade/Stage: Stage II Type of Debridement: Excisional debridement Anesthesia Used: 4% Lidocaine Solution Depth: Down to and including healthy tissue, in the subcutaneous layer Percentage of wound debrided: 100 Instrument Used: 3mm curette Tissue Removed: Slough and Devitalized tissue Severity: Fat Layer Exposed Amount of bleeding with debridement: Mild Bleeding Controlled with: Pressure Patient tolerated procedure well Assessment/Plan Active Problems Non-pressure ulcer of right lower extremity with fat layer exposed (Chronic) Obesity (Chronic) Assessment: Cellulitis and ulcer of Right lower extremity possibly secondary to spider bite. Right lower leg abscess/ulcer s/p incision and drainage. Morbid obesity. Plan: Continued improvement in wound depth and circumference noted this week. She continues to use her wound VAC better also. Debridement done as documented above. Procedure was well-tolerated. Continue wound VAC at 150mmHg. Continue Surepress for edema management. Continue high-protein diet/ supplements. Avoid idle standing.. Elevate lower extremity when seated and in bed. Exercise and weight loss recommended. No return to work until further notice. Follow-up in 1 week. This note was generated with [employer] dictation software. It may contain incorrect words, spelling, and punctuation that were not noted in checking the note before signing.
[2017-08-11 10:52] VITALS: BP 154/78; PULSE 81; RESP 16; TEMP 36.6
--- NOTE | 2017-08-11 11:45 | PCM.WC.PN ---
(1) Abscess of right lower extremity Status: Chronic Current Visit: No Code(s): L02.415 - Cutaneous abscess of right lower limb (2) Non-pressure ulcer of right lower extremity with fat layer exposed Status: Chronic Current Visit: Yes Code(s): L97.912 - Non-pressure chronic ulcer of unspecified part of right lower leg with fat layer exposed (3) Obesity Status: Chronic Current Visit: Yes Code(s): E66.9 - Obesity, unspecified Type of Wound Date of Service: 08/11/17 Chief Complaint: Left lower extremity ulcer and cellulitis. Left lower extremity abscess. History of Wound: Ms. Corona is a 31-year-old with past medical history of pulmonary embolism and mood disorders who was referred to the wound clinic by her primary care physician due to poor healing of her left lower extremity wounds. She reports being in a stable state of health until about 3-4 weeks ago when she initially noted burning and stinging of the left lower extremity and believes she was bitten by probably spider. About 2 weeks after that incident she noted flulike symptoms and subsequent worsening pain and redness of her left lower extremity. She was seen by primary care physician and subsequently referred to the emergency room where she was admitted and managed as a case of left lower extremity cellulitis. Since her discharge she had been followed up by her primary care physician and was wrapping her left lower extremity with gauze and Paul wraps. She states that she was recently given a cream by her PCP however she is unsure of the name. She was on antibiotics during her hospital stay and was discharged on doxycycline and Keflex. Wound was said to have been stable without any significant progression however her mother notes that on Wednesday they noted a purulent discharge from opening in her lower leg. She denies chills, fever, nausea, vomiting or otherwise feeling of unwell Progress of Wound: Improving. - Physical Exam Vital Signs Temp Pulse Resp BP 97.8 F 81 16 154/78 H 08/11/17 10:52 08/11/17 10:52 08/11/17 10:52 08/11/17 10:52 General: Alert, Oriented x3, Cooperative, No apparent distress HEENT: Atraumatic, Normocephalic Oral: Moist Mucosa Neck: Supple Lungs: Normal air movement Cardiovascular: Regular rate Abdomen: Non Tender, Obese Extremities: No cyanosis, Edema Skin: Ulcer/ Wound Wound Measurements and Assessment - Nurse 1 - General Ulcer Measurement Start: 07/21/17 10:29 Freq: Status: Active Protocol: Activity Type Activity Date Activity User E-Sign Co-Sign Detail Recorded Client Recorded Date Recorded By Document 08/11/17 10:52 [facility] [id number] 08/11/17 11:02 [facility] 08/11/17 10:52 Wound Center Nurse 1 [Ulcer Assessment] #1 RLE Lateral Devi -Combined with other wound No -Current Size (cm) - Length 0.4 -Current Size (cm) - Width 0.3 -Current Size (cm) - Depth 0.4 -Total Square Cm 0.12 -Photo Taken No -Epithelialization Small 1-33% -Tunneling No -Undermining/Tunneling No -Circular Undermining No -Exudate Amt Small (1-33%) -Exudate Type Sanguineous -Wound Margin Distinct, Outline Attached -Granulation Amt Large (67-100%) -Granulation Quality Red -Slough/Fibrin No -Necrosis Amt None Present (0 %) -Texture (Paulina-wound Skin Appearance) Scarring Rash -Moisture (Paulina-wound Skin Appearance Dry/Scaly ) -Color (Paulina-wound Skin Appearance) Assessed -Temperature (Paulina-wound Skin No Abnormality Appearance) (Pt Warm) -Tenderness on Palpation (Paulina-wound No Skin Appearance) -Ulcer Cleansing Rinsed/ Irrigated with Saline -Foul Odor after Cleansing No -Anesthetic Used 4% Lidocaine Solution - Nurse 2 - General Ulcer CM Notes Start: 07/21/17 10:29 Freq: Status: Active Protocol: Activity Type Activity Date Activity User E-Sign Co-Sign Detail Recorded Client Recorded Date Recorded By Document 08/11/17 11:12 [id number] 08/11/17 11:14 DV 08/11/17 11:12 Wound Center Nurse 2 [Procedure/Treatment] -Time 11:12 -Correct Patient Yes -Correct Side, Site, Position Yes -Correct Procedure Yes -Procedure Performed Yes -Type of Procedure Debridement -Clinical Debridement Subcutaneous -Post Debridement Size (cm) - Length 0.5 -Post Debridement Size (cm) - Width 0.5 -Post Debridement Size (cm) - Depth 1.1 -Total Square Cm 0.25 -Wound/Ulcer Outcome Not Healed -Ulcer Cleansing Rinsed/ Irrigated with Saline -Foul Odor after Cleansing No -Bioengineered Tissue No -Bleeding Controlled with Pressure -Treatment Response Procedure Tolerated Well [See Physician Procedure note for Specifics] Pain Scale: 0-10 Numeric [Pain] -Is Patient Pain Free? Yes Musculoskeletal: No Muscle Wasting Neurological: Cranial nerves II-XII grossly intact Psych/Mental Status: Normal Affect Debridement Note Post-Debridement Measurements/Treatment WC - Nurse 2 - General Ulcer CM Notes Start: 07/21/17 10:29 Freq: Status: Active Protocol: Activity Type Activity Date Activity User E-Sign Co-Sign Detail Recorded Client Recorded Date Recorded By Document 07/21/17 10:56 DV [id number] 07/21/17 11:00 DV Document 08/04/17 11:20 DV [id number] 08/04/17 11:25 DV Document 08/11/17 11:12 DV [id number] 08/11/17 11:14 DV 07/21/17 08/04/17 08/11/17 10:56 11:20 11:12 Wound Center Nurse 2 #1 RLE Lateral Devi -Time 10:57 11:21 11:12 -Correct Patient Yes Yes Yes -Correct Side, Site, Position Yes Yes Yes -Correct Procedure Yes Yes Yes -Procedure Performed Yes Yes Yes -Type of Procedure Debridement Debridement Debridement -Clinical Debridement Subcutaneous Subcutaneous Subcutaneous -Post Debridement Size (cm) - Length 0.6 0.6 0.5 -Post Debridement Size (cm) - Width 0.4 0.6 0.5 -Post Debridement Size (cm) - Depth 1.5 1.2 1.1 -Total Square Cm 0.24 0.36 0.25 -Wound/Ulcer Outcome Not Healed Not Healed Not Healed -Ulcer Cleansing Rinsed/ Rinsed/ Rinsed/ Irrigated with Irrigated with Irrigated with Saline Saline Saline -Foul Odor after Cleansing No No No -Bioengineered Tissue No No No -Bleeding Controlled with Pressure Pressure Pressure -Treatment Response Procedure Procedure Procedure Tolerated Well Tolerated Well Tolerated Well Pain Scale: 0-10 Numeric Is Patient Pain Free? Yes Yes Yes Wound debrided: Right lower extremity ulcer/cavity Wound Grade/Stage: Stage II Type of Debridement: Excisional debridement Anesthesia Used: 4% Lidocaine Solution Depth: Down to and including healthy tissue, in the subcutaneous layer Percentage of wound debrided: 100 Instrument Used: 3mm curette Tissue Removed: Biofilm, slough and devitalized tissue Severity: Fat Layer Exposed Amount of bleeding with debridement: Mild Bleeding Controlled with: Pressure Patient tolerated procedure well Assessment/Plan Active Problems Non-pressure ulcer of right lower extremity with fat layer exposed (Chronic) Obesity (Chronic) Assessment: Cellulitis and ulcer of Right lower extremity possibly secondary to spider bite. Right lower leg abscess/ulcer s/p incision and drainage. Morbid obesity. Plan: Continued improvement in wound depth and circumference noted this week. Debridement done as documeneted above, procedure was well tolerated. Wound Vac holiday for the next week. Promogram to wound . 3M wraps fr edema management. Continue high-protein diet/supplements. Avoid idle standing.. Elevate lower extremity when seated and in bed. Exercise and weight loss recommended. No return to work until further notice. Follow-up in 1 week. This note was generated with [employer] dictation software. It may contain incorrect words, spelling, and punctuation that were not noted in checking the note before signing.
--- NOTE | 2017-08-11 11:48 | PN.PCM_ITS ---
(1) Abscess of right lower extremity Status: Chronic Current Visit: No Code(s): L02.415 - Cutaneous abscess of right lower limb (2) Non-pressure ulcer of right lower extremity with fat layer exposed Status: Chronic Current Visit: Yes Code(s): L97.912 - Non-pressure chronic ulcer of unspecified part of right lower leg with fat layer exposed (3) Obesity Status: Chronic Current Visit: Yes Code(s): E66.9 - Obesity, unspecified Type of Wound Date of Service: 08/11/17 Chief Complaint: Left lower extremity ulcer and cellulitis. Left lower extremity abscess. History of Wound: Ms. Corona is a 31-year-old with past medical history of pulmonary embolism and mood disorders who was referred to the wound clinic by her primary care physician due to poor healing of her left lower extremity wounds. She reports being in a stable state of health until about 3-4 weeks ago when she initially noted burning and stinging of the left lower extremity and believes she was bitten by probably spider. About 2 weeks after that incident she noted flulike symptoms and subsequent worsening pain and redness of her left lower extremity. She was seen by primary care physician and subsequently referred to the emergency room where she was admitted and managed as a case of left lower extremity cellulitis. Since her discharge she had been followed up by her primary care physician and was wrapping her left lower extremity with gauze and Paul wraps. She states that she was recently given a cream by her PCP however she is unsure of the name. She was on antibiotics during her hospital stay and was discharged on doxycycline and Keflex. Wound was said to have been stable without any significant progression however her mother notes that on Wednesday they noted a purulent discharge from opening in her lower leg. She denies chills, fever, nausea, vomiting or otherwise feeling of unwell Progress of Wound: Improving. - Physical Exam Vital Signs Temp Pulse Resp BP 97.8 F 81 16 154/78 H 08/11/17 10:52 08/11/17 10:52 08/11/17 10:52 08/11/17 10:52 General: Alert, Oriented x3, Cooperative, No apparent distress HEENT: Atraumatic, Normocephalic Oral: Moist Mucosa Neck: Supple Lungs: Normal air movement Cardiovascular: Regular rate Abdomen: Non Tender, Obese Extremities: No cyanosis, Edema Skin: Ulcer/ Wound Wound Measurements and Assessment - Nurse 1 - General Ulcer Measurement Start: 07/21/17 10:29 Freq: Status: Active Protocol: Activity Type Activity Date Activity User E-Sign Co-Sign Detail Recorded Client Recorded Date Recorded By Document 08/11/17 10:52 [facility] [id number] 08/11/17 11:02 [facility] 08/11/17 10:52 Wound Center Nurse 1 [Ulcer Assessment] #1 RLE Lateral Devi -Combined with other wound No -Current Size (cm) - Length 0.4 -Current Size (cm) - Width 0.3 -Current Size (cm) - Depth 0.4 -Total Square Cm 0.12 -Photo Taken No -Epithelialization Small 1-33% -Tunneling No -Undermining/Tunneling No -Circular Undermining No -Exudate Amt Small (1-33%) -Exudate Type Sanguineous -Wound Margin Distinct, Outline Attached -Granulation Amt Large (67-100%) -Granulation Quality Red -Slough/Fibrin No -Necrosis Amt None Present (0 %) -Texture (Paulina-wound Skin Appearance) Scarring Rash -Moisture (Paulina-wound Skin Appearance Dry/Scaly ) -Color (Paulina-wound Skin Appearance) Assessed -Temperature (Paulina-wound Skin No Abnormality Appearance) (Pt Warm) -Tenderness on Palpation (Paulina-wound No Skin Appearance) -Ulcer Cleansing Rinsed/ Irrigated with Saline -Foul Odor after Cleansing No -Anesthetic Used 4% Lidocaine Solution - Nurse 2 - General Ulcer CM Notes Start: 07/21/17 10:29 Freq: Status: Active Protocol: Activity Type Activity Date Activity User E-Sign Co-Sign Detail Recorded Client Recorded Date Recorded By Document 08/11/17 11:12 [id number] 08/11/17 11:14 DV 08/11/17 11:12 Wound Center Nurse 2 [Procedure/Treatment] -Time 11:12 -Correct Patient Yes -Correct Side, Site, Position Yes -Correct Procedure Yes -Procedure Performed Yes -Type of Procedure Debridement -Clinical Debridement Subcutaneous -Post Debridement Size (cm) - Length 0.5 -Post Debridement Size (cm) - Width 0.5 -Post Debridement Size (cm) - Depth 1.1 -Total Square Cm 0.25 -Wound/Ulcer Outcome Not Healed -Ulcer Cleansing Rinsed/ Irrigated with Saline -Foul Odor after Cleansing No -Bioengineered Tissue No -Bleeding Controlled with Pressure -Treatment Response Procedure Tolerated Well [See Physician Procedure note for Specifics] Pain Scale: 0-10 Numeric [Pain] -Is Patient Pain Free? Yes Musculoskeletal: No Muscle Wasting Neurological: Cranial nerves II-XII grossly intact Psych/Mental Status: Normal Affect Debridement Note Post-Debridement Measurements/Treatment WC - Nurse 2 - General Ulcer CM Notes Start: 07/21/17 10:29 Freq: Status: Active Protocol: Activity Type Activity Date Activity User E-Sign Co-Sign Detail Recorded Client Recorded Date Recorded By Document 07/21/17 10:56 DV [id number] 07/21/17 11:00 DV Document 08/04/17 11:20 DV [id number] 08/04/17 11:25 DV Document 08/11/17 11:12 DV [id number] 08/11/17 11:14 DV 07/21/17 08/04/17 08/11/17 10:56 11:20 11:12 Wound Center Nurse 2 #1 RLE Lateral Devi -Time 10:57 11:21 11:12 -Correct Patient Yes Yes Yes -Correct Side, Site, Position Yes Yes Yes -Correct Procedure Yes Yes Yes -Procedure Performed Yes Yes Yes -Type of Procedure Debridement Debridement Debridement -Clinical Debridement Subcutaneous Subcutaneous Subcutaneous -Post Debridement Size (cm) - Length 0.6 0.6 0.5 -Post Debridement Size (cm) - Width 0.4 0.6 0.5 -Post Debridement Size (cm) - Depth 1.5 1.2 1.1 -Total Square Cm 0.24 0.36 0.25 -Wound/Ulcer Outcome Not Healed Not Healed Not Healed -Ulcer Cleansing Rinsed/ Rinsed/ Rinsed/ Irrigated with Irrigated with Irrigated with Saline Saline Saline -Foul Odor after Cleansing No No No -Bioengineered Tissue No No No -Bleeding Controlled with Pressure Pressure Pressure -Treatment Response Procedure Procedure Procedure Tolerated Well Tolerated Well Tolerated Well Pain Scale: 0-10 Numeric Is Patient Pain Free? Yes Yes Yes Wound debrided: Right lower extremity ulcer/cavity Wound Grade/Stage: Stage II Type of Debridement: Excisional debridement Anesthesia Used: 4% Lidocaine Solution Depth: Down to and including healthy tissue, in the subcutaneous layer Percentage of wound debrided: 100 Instrument Used: 3mm curette Tissue Removed: Biofilm, slough and devitalized tissue Severity: Fat Layer Exposed Amount of bleeding with debridement: Mild Bleeding Controlled with: Pressure Patient tolerated procedure well Assessment/Plan Active Problems Non-pressure ulcer of right lower extremity with fat layer exposed (Chronic) Obesity (Chronic) Assessment: Cellulitis and ulcer of Right lower extremity possibly secondary to spider bite. Right lower leg abscess/ulcer s/p incision and drainage. Morbid obesity. Plan: Continued improvement in wound depth and circumference noted this week. Debridement done as documeneted above, procedure was well tolerated. Wound Vac holiday for the next week. Promogram to wound . 3M wraps fr edema management. Continue high-protein diet/supplements. Avoid idle standing.. Elevate lower extremity when seated and in bed. Exercise and weight loss recommended. No return to work until further notice. Follow-up in 1 week. This note was generated with [employer] dictation software. It may contain incorrect words, spelling, and punctuation that were not noted in checking the note before signing.
== END 2017-08-16 23:59 ==
LOC: WC 10:00
PROVIDERS: Family Provider Family Medicine; PCP Family Medicine; Visit Provider Internal Medicine
DX: L97.812 Non-pressure chronic ulcer of other part of right lower leg with fat layer exposed (principal); Z86.711 Personal history of pulmonary embolism; E66.01 Morbid (severe) obesity due to excess calories; Z71.3 Dietary counseling and surveillance
CPT/HCPCS: 11042; 29581; 97605

== ENCOUNTER 2017-09-09 15:17 | Emergency (ER) | payer OTHER, SELFPAY ==
[2017-09-09 15:17] VITALS: BP 180/102; PULSE 108; RESP 22; TEMP 36.8; O2SAT 97; BMI 72.3
[2017-09-09] MEDS: Clindamycin 600 MG/50 ML BAG 100 MG IV (16:04)
--- NOTE | 2017-09-09 16:58 | ED.VISSUMM ---
- ER Visit Summary Date of Service: 09/09/17 Chief Complaint: Right leg redness and swelling History of Present Illness: The patient is a 31 F who presents with right leg redness and swelling that has gotten worse over the past 3 days. Patient was seen at the wound care center today and was referred to the emergency department for worsening redness of her right leg. Patient states this has gradually gotten worse. Patient denies any fevers or chills. Patient denies any paresthesias or weakness. Patient denies any discharge or drainage. Patient has a history of a chronic wound to her right leg from a prior infection. Patient completed a course of antibiotics approximately 6 weeks ago. Patient dates her wound has been healing well until now. Physical Examination: Vital signs are stable. Patient is afebrile. Patient is in no acute distress. Musculoskeletal exam reveals erythema and warmth of the right lower extremity. There is a wound over the anterior right leg. This was packed at the wound center. There is no active discharge or drainage. There is no erythema extending proximal to the knee. There is no streaking noted. Pedal pulses are equal bilateral. There are no sensory deficits noted. Heart was regular rate and rhythm. Lungs are clear and equal bilaterally. There is good respiratory effort noted. The remaining physical exam is within normal limits. Emergency Department Course and Treatment: Patient was given a dose of clindamycin here. Patient was given prescription for clindamycin. Since there is no streaking proximal to the knee, and the patient is currently afebrile, I do not feel patient needs to be admitted to the hospital. Patient was instructed to follow-up with her primary care physician and materials specialist in 5-7 days. Patient understood and was agreeable with the plan. All questions were answered. Disposition: Discharged home Impression: Right lower extremity cellulitis This note was generated with [employer] dictation software. It may contain incorrect words, spelling, and punctuation that were not noted in review of the chart prior to signing ED Disposition - Plan for ED Patient: Disposition: Home or Assisted Living Chief Complaint: Wound Diagnosis: Cellulitis of right lower leg Instructions: ED Infec Skin Cellulitis Prescriptions: Clindamycin HCl 300 mg PO [id number] #40 cap Referrals: Addy Ugalde MD [Primary Care Provider] -
--- NOTE | 2017-09-09 17:06 | ED.DCSUM_ITS ---
- ER Visit Summary Date of Service: 09/09/17 Chief Complaint: Right leg redness and swelling History of Present Illness: The patient is a 31 F who presents with right leg redness and swelling that has gotten worse over the past 3 days. Patient was seen at the wound care center today and was referred to the emergency department for worsening redness of her right leg. Patient states this has gradually gotten worse. Patient denies any fevers or chills. Patient denies any paresthesias or weakness. Patient denies any discharge or drainage. Patient has a history of a chronic wound to her right leg from a prior infection. Patient completed a course of antibiotics approximately 6 weeks ago. Patient dates her wound has been healing well until now. Physical Examination: Vital signs are stable. Patient is afebrile. Patient is in no acute distress. Musculoskeletal exam reveals erythema and warmth of the right lower extremity. There is a wound over the anterior right leg. This was packed at the wound center. There is no active discharge or drainage. There is no erythema extending proximal to the knee. There is no streaking noted. Pedal pulses are equal bilateral. There are no sensory deficits noted. Heart was regular rate and rhythm. Lungs are clear and equal bilaterally. There is good respiratory effort noted. The remaining physical exam is within normal limits. Emergency Department Course and Treatment: Patient was given a dose of clindamycin here. Patient was given prescription for clindamycin. Since there is no streaking proximal to the knee, and the patient is currently afebrile, I do not feel patient needs to be admitted to the hospital. Patient was instructed to follow-up with her primary care physician and multimedia specialist in 5-7 days. Patient understood and was agreeable with the plan. All questions were answered. Disposition: Discharged home Impression: Right lower extremity cellulitis This note was generated with [employer] dictation software. It may contain incorrect words, spelling, and punctuation that were not noted in review of the chart prior to signing ED Disposition - Plan for ED Patient: Disposition: Home or Assisted Living Chief Complaint: Wound Diagnosis: Cellulitis of right lower leg Instructions: ED Infec Skin Cellulitis Prescriptions: Clindamycin HCl 300 mg PO [id number] #40 cap Referrals: Addy Ugalde MD [Primary Care Provider] -
[2017-09-09 17:21] VITALS: BP 147/88; PULSE 73
== END 2017-09-09 17:22 | disposition home or self-care (01) ==
PROVIDERS: Emergency Provider Emergency Medicine; Family Provider Family Medicine; PCP Family Medicine
DX: L03.115 Cellulitis of right lower limb (principal); E66.9 Obesity, unspecified; Z87.2 Personal history of diseases of the skin and subcutaneous tissue
CPT/HCPCS: 96365; 99283; J7050; A4216

== ENCOUNTER 2017-09-15 10:00 | Outpatient (RCR) | payer OTHER, SELFPAY ==
[2017-08-17 00:44] VITALS: BP 150/98; PULSE 81; RESP 16; TEMP 36.6
[2017-08-18 11:40] VITALS: BP 152/109; PULSE 97; RESP 18; TEMP 37.6
--- NOTE | 2017-08-18 13:02 | PN.PCM_ITS ---
(1) Non-pressure ulcer of right lower extremity with fat layer exposed Status: Chronic Current Visit: Yes Code(s): L97.912 - Non-pressure chronic ulcer of unspecified part of right lower leg with fat layer exposed (2) Bilateral lower extremity edema Status: Acute Current Visit: Yes Code(s): R60.0 - Localized edema Type of Wound Date of Service: 08/18/17 Chief Complaint: Left lower extremity ulcer and cellulitis. Left lower extremity abscess. History of Wound: Ms. Corona is a 31-year-old with past medical history of pulmonary embolism and mood disorders who was referred to the wound clinic by her primary care physician due to poor healing of her left lower extremity wounds. She reports being in a stable state of health until about 3-4 weeks ago when she initially noted burning and stinging of the left lower extremity and believes she was bitten by probably spider. About 2 weeks after that incident she noted flulike symptoms and subsequent worsening pain and redness of her left lower extremity. She was seen by primary care physician and subsequently referred to the emergency room where she was admitted and managed as a case of left lower extremity cellulitis. Since her discharge she had been followed up by her primary care physician and was wrapping her left lower extremity with gauze and Paul wraps. She states that she was recently given a cream by her PCP however she is unsure of the name. She was on antibiotics during her hospital stay and was discharged on doxycycline and Keflex. Wound was said to have been stable without any significant progression however her mother notes that on Wednesday they noted a purulent discharge from opening in her lower leg. She denies chills, fever, nausea, vomiting or otherwise feeling of unwell Progress of Wound: Improving. - Physical Exam Vital Signs Temp Pulse Resp BP 99.6 F H 97 18 152/109 H 08/18/17 11:40 08/18/17 11:40 08/18/17 11:40 08/18/17 11:40 General: Alert, Oriented x3, Cooperative, No apparent distress HEENT: Atraumatic, Normocephalic Oral: Moist Mucosa Neck: Supple Lungs: Normal air movement Cardiovascular: Regular rate Abdomen: Obese Extremities: No cyanosis, Edema Skin: Ulcer/ Wound Wound Measurements and Assessment WC - Nurse 1 - General Ulcer Measurement Start: 08/18/17 11:40 Freq: Status: Active Protocol: Activity Type Activity Date Activity User E-Sign Co-Sign Detail Recorded Client Recorded Date Recorded By Document 08/18/17 11:40 [facility] [id number] 08/18/17 11:47 [facility] 08/18/17 11:40 Wound Center Nurse 1 [Ulcer Assessment] #1 RLE Lateral Devi -Combined with other wound No -Current Size (cm) - Length 0.5 -Current Size (cm) - Width 0.4 -Current Size (cm) - Depth 0.3 -Total Square Cm 0.20 -Photo Taken No -Epithelialization None Present -Tunneling No -Undermining/Tunneling No -Circular Undermining No -Exudate Amt Small (1-33%) -Exudate Type Serosanguineous -Wound Margin Distinct, Outline Attached -Granulation Amt Large (67-100%) -Granulation Quality Red -Slough/Fibrin No -Necrosis Amt None Present (0 %) -Texture (Paulina-wound Skin Appearance) Excoriation Scarring Rash -Moisture (Paulina-wound Skin Appearance Dry/Scaly ) -Color (Paulina-wound Skin Appearance) Assessed Erythema -Temperature (Paulina-wound Skin No Abnormality Appearance) (Pt Warm) -Tenderness on Palpation (Paulina-wound No Skin Appearance) -Ulcer Cleansing Rinsed/ Irrigated with Saline -Foul Odor after Cleansing No -Anesthetic Used 4% Lidocaine Solution [Edema Assessment] -Lower Limb Edema Present Yes -Right Calf (cm) 62.4 -Right Ankle (cm) 34 WC - Nurse 2 - General Ulcer CM Notes Start: 08/18/17 11:40 Freq: Status: Active Protocol: Activity Type Activity Date Activity User E-Sign Co-Sign Detail Recorded Client Recorded Date Recorded By Document 08/18/17 12:06 [id number] 08/18/17 12:12 DV 08/18/17 12:06 Wound Center Nurse 2 [Procedure/Treatment] #1 RLE Lateral Devi -Time 12:09 -Correct Patient Yes -Correct Side, Site, Position Yes -Correct Procedure Yes -Procedure Performed Yes -Type of Procedure Debridement -Clinical Debridement Subcutaneous -Post Debridement Size (cm) - Length 0.4 -Post Debridement Size (cm) - Width 0.4 -Post Debridement Size (cm) - Depth 0.5 -Total Square Cm 0.16 -Wound/Ulcer Outcome Amputation -Ulcer Cleansing Rinsed/ Irrigated with Saline -Foul Odor after Cleansing No -Bioengineered Tissue No -Bleeding Controlled with Pressure -Treatment Response Procedure Tolerated Well [See Physician Procedure note for Specifics] Pain Scale: 0-10 Numeric [Pain] -Is Patient Pain Free? Yes Musculoskeletal: No Muscle Wasting Neurological: Cranial nerves II-XII grossly intact Psych/Mental Status: Normal Affect Debridement Note Post-Debridement Measurements/Treatment WC - Nurse 2 - General Ulcer CM Notes Start: 08/18/17 11:40 Freq: Status: Active Protocol: Activity Type Activity Date Activity User E-Sign Co-Sign Detail Recorded Client Recorded Date Recorded By Document 08/18/17 12:06 DV [id number] 08/18/17 12:12 DV 08/18/17 12:06 Wound Center Nurse 2 #1 RLE Lateral Devi -Time 12:09 -Correct Patient Yes -Correct Side, Site, Position Yes -Correct Procedure Yes -Procedure Performed Yes -Type of Procedure Debridement -Clinical Debridement Subcutaneous -Post Debridement Size (cm) - Length 0.4 -Post Debridement Size (cm) - Width 0.4 -Post Debridement Size (cm) - Depth 0.5 -Total Square Cm 0.16 -Wound/Ulcer Outcome Amputation -Ulcer Cleansing Rinsed/ Irrigated with Saline -Foul Odor after Cleansing No -Bioengineered Tissue No -Bleeding Controlled with Pressure -Treatment Response Procedure Tolerated Well Pain Scale: 0-10 Numeric Is Patient Pain Free? Yes Wound debrided: Right lower extremity ulcer/cavity/abscess Wound Grade/Stage: Stage II Type of Debridement: Excisional debridement Anesthesia Used: 4% Lidocaine Solution Depth: Down to and including healthy tissue, in the subcutaneous layer Percentage of wound debrided: 100 Instrument Used: 3mm curette Tissue Removed: Slough and devitalized tissue Severity: Fat Layer Exposed Amount of bleeding with debridement: Mild Bleeding Controlled with: Pressure Patient tolerated procedure well Assessment/Plan Active Problems Non-pressure ulcer of right lower extremity with fat layer exposed (Chronic) Bilateral lower extremity edema (Acute) Assessment: Cellulitis and ulcer of Right lower extremity possibly secondary to spider bite. Right lower leg abscess/ulcer s/p incision and drainage. Morbid obesity. Plan: Continued improvement in wound depth and circumference noted this week. Debridement done as documeneted above, procedure was well tolerated. Still significant swelling of right lower extremity. I believe she will benefit from more compresion as 3M warps do not stay on. Possibly circaid. Continue Promogram to wound. Change every other day. Continue Surepress for edema management for now. Continue high-protein diet/supplements. Avoid idle standing.. Elevate lower extremity when seated and in bed. Exercise and weight loss recommended. No return to work until further notice. Follow-up in 1 week. This note was generated with [employer] dictation software. It may contain incorrect words, spelling, and punctuation that were not noted in checking the note before signing.
[2017-08-25 08:34] VITALS: BP 158/106; PULSE 88; RESP 20; TEMP 36.8
--- NOTE | 2017-08-25 17:42 | PN.PCM_ITS ---
(1) Non-pressure ulcer of right lower extremity with fat layer exposed Status: Chronic Current Visit: Yes Code(s): L97.912 - Non-pressure chronic ulcer of unspecified part of right lower leg with fat layer exposed (2) Bilateral lower extremity edema Status: Acute Current Visit: Yes Code(s): R60.0 - Localized edema Type of Wound Date of Service: 08/25/17 Chief Complaint: Left lower extremity ulcer and cellulitis. Left lower extremity abscess. History of Wound: Ms. Corona is a 31-year-old with past medical history of pulmonary embolism and mood disorders who was referred to the wound clinic by her primary care physician due to poor healing of her left lower extremity wounds. She reports being in a stable state of health until about 3-4 weeks ago when she initially noted burning and stinging of the left lower extremity and believes she was bitten by probably spider. About 2 weeks after that incident she noted flulike symptoms and subsequent worsening pain and redness of her left lower extremity. She was seen by primary care physician and subsequently referred to the emergency room where she was admitted and managed as a case of left lower extremity cellulitis. Since her discharge she had been followed up by her primary care physician and was wrapping her left lower extremity with gauze and Paul wraps. She states that she was recently given a cream by her PCP however she is unsure of the name. She was on antibiotics during her hospital stay and was discharged on doxycycline and Keflex. Wound was said to have been stable without any significant progression however her mother notes that on Wednesday they noted a purulent discharge from opening in her lower leg. She denies chills, fever, nausea, vomiting or otherwise feeling of unwell Progress of Wound: Improving. - Physical Exam Vital Signs Temp Pulse Resp BP 98.2 F 88 20 H 158/106 H 08/25/17 08:34 08/25/17 08:34 08/25/17 08:34 08/25/17 08:34 General: Alert, Oriented x3, Cooperative, No apparent distress HEENT: Atraumatic, Normocephalic Oral: Moist Mucosa Neck: Supple Lungs: Normal air movement Cardiovascular: Regular rate Abdomen: Soft, Obese Extremities: No cyanosis, Edema Skin: Ulcer/ Wound Wound Measurements and Assessment WC - Nurse 1 - General Ulcer Measurement Start: 08/18/17 11:40 Freq: Status: Active Protocol: Activity Type Activity Date Activity User E-Sign Co-Sign Detail Recorded Client Recorded Date Recorded By Document 08/25/17 08:34 MW [id number] 08/25/17 08:41 MW 08/25/17 08:34 Wound Center Nurse 1 [Ulcer Assessment] #1 RLE Lateral Devi -Combined with other wound No -Current Size (cm) - Length 0.3 -Current Size (cm) - Width 0.2 -Current Size (cm) - Depth 0.2 -Total Square Cm 0.06 -Photo Taken No -Epithelialization None Present -Tunneling No -Undermining/Tunneling No -Circular Undermining No -Exudate Amt Small (1-33%) -Exudate Type Serosanguineous -Wound Margin Distinct, Outline Attached -Granulation Amt None Present (0 %) -Granulation Quality N/A -Slough/Fibrin Yes -Necrosis Amt Large (67-100%) -Necrotic Tissue Type Adherent Slough -Structure Exposed N/A -Texture (Paulina-wound Skin Appearance) Assessed Localized Edema Scarring -Moisture (Paulina-wound Skin Appearance Assessed ) Dry/Scaly -Color (Paulina-wound Skin Appearance) No Abnormality Assessed -Temperature (Paulina-wound Skin No Abnormality Appearance) (Pt Warm) -Tenderness on Palpation (Paulina-wound No Skin Appearance) -Ulcer Cleansing Rinsed/ Irrigated with Saline -Foul Odor after Cleansing No -Anesthetic Used 4% Lidocaine Solution [Edema Assessment] -Lower Limb Edema Present Yes -Right Calf (cm) 63.4 -Right Ankle (cm) 33.0 WC - Nurse 2 - General Ulcer CM Notes Start: 08/18/17 11:40 Freq: Status: Active Protocol: Activity Type Activity Date Activity User E-Sign Co-Sign Detail Recorded Client Recorded Date Recorded By Document 08/25/17 09:58 DV [id number] 08/25/17 10:00 DV 08/25/17 09:58 Wound Center Nurse 2 [Procedure/Treatment] #1 RLE Lateral Devi -Time 09:58 -Correct Patient Yes -Correct Side, Site, Position Yes -Correct Procedure Yes -Procedure Performed Yes -Type of Procedure Debridement -Clinical Debridement Subcutaneous -Post Debridement Size (cm) - Length 0.3 -Post Debridement Size (cm) - Width 0.4 -Post Debridement Size (cm) - Depth 0.3 -Total Square Cm 0.12 -Wound/Ulcer Outcome Not Healed -Ulcer Cleansing Rinsed/ Irrigated with Saline -Foul Odor after Cleansing No -Bioengineered Tissue No -Bleeding Controlled with NA -Treatment Response Procedure Tolerated Well [See Physician Procedure note for Specifics] Pain Scale: 0-10 Numeric [Pain] -Is Patient Pain Free? Yes Musculoskeletal: No Muscle Wasting Neurological: Cranial nerves II-XII grossly intact Psych/Mental Status: Normal Affect Debridement Note Post-Debridement Measurements/Treatment WC - Nurse 2 - General Ulcer CM Notes Start: 08/18/17 11:40 Freq: Status: Active Protocol: Activity Type Activity Date Activity User E-Sign Co-Sign Detail Recorded Client Recorded Date Recorded By Document 08/18/17 12:06 DV [id number] 08/18/17 12:12 DV Document 08/25/17 09:58 DV [id number] 08/25/17 10:00 DV 08/18/17 08/25/17 12:06 09:58 Wound Center Nurse 2 #1 RLE Lateral Devi -Time 12:09 09:58 -Correct Patient Yes Yes -Correct Side, Site, Position Yes Yes -Correct Procedure Yes Yes -Procedure Performed Yes Yes -Type of Procedure Debridement Debridement -Clinical Debridement Subcutaneous Subcutaneous -Post Debridement Size (cm) - Length 0.4 0.3 -Post Debridement Size (cm) - Width 0.4 0.4 -Post Debridement Size (cm) - Depth 0.5 0.3 -Total Square Cm 0.16 0.12 -Wound/Ulcer Outcome Amputation Not Healed -Ulcer Cleansing Rinsed/ Rinsed/ Irrigated with Irrigated with Saline Saline -Foul Odor after Cleansing No No -Bioengineered Tissue No No -Bleeding Controlled with Pressure NA -Treatment Response Procedure Procedure Tolerated Well Tolerated Well Pain Scale: 0-10 Numeric Is Patient Pain Free? Yes Yes Wound debrided: Right lower extremity Wound Grade/Stage: Stage II Anesthesia Used: 4% Lidocaine Solution Depth: Down to and including healthy tissue, in the subcutaneous layer Percentage of wound debrided: 100 Instrument Used: 3mm curette Tissue Removed: Slough and devitalized tissue Severity: Fat Layer Exposed Amount of bleeding with debridement: Mild Bleeding Controlled with: Pressure Patient tolerated procedure well Assessment/Plan Active Problems Non-pressure ulcer of right lower extremity with fat layer exposed (Chronic) Bilateral lower extremity edema (Acute) Assessment: Cellulitis and ulcer of Right lower extremity possibly secondary to spider bite. Right lower leg abscess/ulcer s/p incision and drainage. Morbid obesity. Plan: Continued improvement in wound depth and circumference noted this week. Debridement done as documeneted above, procedure was well tolerated. Still significant swelling of right lower extremity. Prescription for circaid sent. Continue Promogram to wound. Change every other day. Continue Surepress for edema management for now. Continue high-protein diet/supplements. Avoid idle standing.. Elevate lower extremity when seated and in bed. Exercise and weight loss recommended. No return to work until further notice. Follow-up in 1 week. This note was generated with [email or web address] dictation software. It may contain incorrect words, spelling, and punctuation that were not noted in checking the note before signing.
[2017-09-01 09:37] VITALS: BP 162/96; RESP 20; TEMP 37
--- NOTE | 2017-09-01 10:28 | PN.PCM_ITS ---
(1) Non-pressure ulcer of right lower extremity with fat layer exposed Status: Chronic Current Visit: Yes Code(s): L97.912 - Non-pressure chronic ulcer of unspecified part of right lower leg with fat layer exposed (2) Bilateral lower extremity edema Status: Acute Current Visit: Yes Code(s): R60.0 - Localized edema Type of Wound Date of Service: 09/01/17 Chief Complaint: Left lower extremity ulcer and cellulitis. Left lower extremity abscess. History of Wound: Ms. Corona is a 31-year-old with past medical history of pulmonary embolism and mood disorders who was referred to the wound clinic by her primary care physician due to poor healing of her left lower extremity wounds. She reports being in a stable state of health until about 3-4 weeks ago when she initially noted burning and stinging of the left lower extremity and believes she was bitten by probably spider. About 2 weeks after that incident she noted flulike symptoms and subsequent worsening pain and redness of her left lower extremity. She was seen by primary care physician and subsequently referred to the emergency room where she was admitted and managed as a case of left lower extremity cellulitis. Since her discharge she had been followed up by her primary care physician and was wrapping her left lower extremity with gauze and Paul wraps. She states that she was recently given a cream by her PCP however she is unsure of the name. She was on antibiotics during her hospital stay and was discharged on doxycycline and Keflex. Wound was said to have been stable without any significant progression however her mother notes that on Wednesday they noted a purulent discharge from opening in her lower leg. She denies chills, fever, nausea, vomiting or otherwise feeling of unwell Progress of Wound: Improving. - Physical Exam Vital Signs Temp Pulse Resp BP 98.6 F 88 20 H 162/96 H 09/01/17 09:37 08/25/17 08:34 09/01/17 09:37 09/01/17 09:37 General: Alert, Oriented x3, Cooperative, No apparent distress HEENT: Atraumatic, Normocephalic Oral: Moist Mucosa Neck: Supple Lungs: Normal air movement Cardiovascular: Regular rate Abdomen: Obese Extremities: No cyanosis, Edema Skin: Ulcer/ Wound Wound Measurements and Assessment WC - Nurse 1 - General Ulcer Measurement Start: 08/18/17 11:40 Freq: Status: Active Protocol: Activity Type Activity Date Activity User E-Sign Co-Sign Detail Recorded Client Recorded Date Recorded By Document 09/01/17 09:37 [email or web address] [id number] 09/01/17 09:44 JS 09/01/17 09:37 Wound Center Nurse 1 [Ulcer Assessment] #1 RLE Lateral Devi -Combined with other wound No -Current Size (cm) - Length 0.6 -Current Size (cm) - Width 0.4 -Current Size (cm) - Depth 0.2 -Total Square Cm 0.24 -Date of Last Picture (Recall this 09/01/17 field) -Photo Taken No -Tunneling No -Undermining/Tunneling No -Circular Undermining No -Classification - Thickness Full Thickness without Exposed Support Structure -Change in Wound Grade/Stage No Query Text:If change please identify the Stage/Grade in the comment (ie. S2 G3) -Exudate Amt Small (1-33%) -Exudate Type Serosanguineous -Wound Margin Distinct, Outline Attached -Granulation Amt Medium (34-66%) -Granulation Quality [place] -Slough/Fibrin Yes -Necrosis Amt None Present (0 %) -Structure Exposed N/A -Texture (Paulina-wound Skin Appearance) No Abnormality -Color (Paulina-wound Skin Appearance) Hemosiderin Staining -Temperature (Paulina-wound Skin No Abnormality Appearance) (Pt Warm) -Tenderness on Palpation (Paulina-wound No Skin Appearance) -Ulcer Cleansing Rinsed/ Irrigated with Saline -Foul Odor after Cleansing No -Anesthetic Used 5% Lidocaine Gel [Edema Assessment] -Lower Limb Edema Present Yes -Right Calf (cm) 58.5 -Right Ankle (cm) 33.2 Musculoskeletal: No Muscle Wasting Neurological: Cranial nerves II-XII grossly intact Psych/Mental Status: Normal Affect Debridement Note Post-Debridement Measurements/Treatment WC - Nurse 2 - General Ulcer CM Notes Start: 08/18/17 11:40 Freq: Status: Active Protocol: Activity Type Activity Date Activity User E-Sign Co-Sign Detail Recorded Client Recorded Date Recorded By Document 08/18/17 12:06 DV [id number] 08/18/17 12:12 DV Document 08/25/17 09:58 DV [id number] 08/25/17 10:00 DV 08/18/17 08/25/17 12:06 09:58 Wound Center Nurse 2 #1 RLE Lateral Devi -Time 12:09 09:58 -Correct Patient Yes Yes -Correct Side, Site, Position Yes Yes -Correct Procedure Yes Yes -Procedure Performed Yes Yes -Type of Procedure Debridement Debridement -Clinical Debridement Subcutaneous Subcutaneous -Post Debridement Size (cm) - Length 0.4 0.3 -Post Debridement Size (cm) - Width 0.4 0.4 -Post Debridement Size (cm) - Depth 0.5 0.3 -Total Square Cm 0.16 0.12 -Wound/Ulcer Outcome Amputation Not Healed -Ulcer Cleansing Rinsed/ Rinsed/ Irrigated with Irrigated with Saline Saline -Foul Odor after Cleansing No No -Bioengineered Tissue No No -Bleeding Controlled with Pressure NA -Treatment Response Procedure Procedure Tolerated Well Tolerated Well Pain Scale: 0-10 Numeric Is Patient Pain Free? Yes Yes Wound debrided: Right lower extremity Wound Grade/Stage: Stage II Type of Debridement: Selective debridement Anesthesia Used: 4% Lidocaine Solution Depth: Down to and including healthy tissue Percentage of wound debrided: 80 Instrument Used: 3mm curette Tissue Removed: Devitalized tissue Severity: Limited To Skin Breakdown Amount of bleeding with debridement: None Patient tolerated procedure well Assessment/Plan Active Problems Non-pressure ulcer of right lower extremity with fat layer exposed (Chronic) Bilateral lower extremity edema (Acute) Assessment: Cellulitis and ulcer of Right lower extremity possibly secondary to spider bite. Right lower leg abscess/ulcer s/p incision and drainage. Morbid obesity. Plan: Good improvement in the past week. Wound has essentially healed with only a minimal area left. Will get her Circaid today. Debridement done as documeneted above, procedure was well tolerated. Start Circaid as soon as possible for edma management. Continue Promogram to wound. Change every other day. Continue Surepress for edema management for now. Continue high-protein diet/supplements. Avoid idle standing.. Elevate lower extremity when seated and in bed. Exercise and weight loss recommended. No return to work until further notice. Follow-up in 1 week. This note was generated with [employer] dictation software. It may contain incorrect words, spelling, and punctuation that were not noted in checking the note before signing.
[2017-09-08 10:27] VITALS: BP 138/77; PULSE 90; RESP 18; TEMP 36.8
--- NOTE | 2017-09-08 12:52 | PCM.WC.PN ---
(1) Non-pressure ulcer of right lower extremity with fat layer exposed Status: Chronic Current Visit: Yes Code(s): L97.912 - Non-pressure chronic ulcer of unspecified part of right lower leg with fat layer exposed (2) Bilateral lower extremity edema Status: Acute Current Visit: Yes Code(s): R60.0 - Localized edema Type of Wound Date of Service: 09/08/17 Chief Complaint: Left lower extremity ulcer and cellulitis. Left lower extremity abscess. History of Wound: Ms. Corona is a 31-year-old with past medical history of pulmonary embolism and mood disorders who was referred to the wound clinic by her primary care physician due to poor healing of her left lower extremity wounds. She reports being in a stable state of health until about 3-4 weeks ago when she initially noted burning and stinging of the left lower extremity and believes she was bitten by probably spider. About 2 weeks after that incident she noted flulike symptoms and subsequent worsening pain and redness of her left lower extremity. She was seen by primary care physician and subsequently referred to the emergency room where she was admitted and managed as a case of left lower extremity cellulitis. Since her discharge she had been followed up by her primary care physician and was wrapping her left lower extremity with gauze and Paul wraps. She states that she was recently given a cream by her PCP however she is unsure of the name. She was on antibiotics during her hospital stay and was discharged on doxycycline and Keflex. Wound was said to have been stable without any significant progression however her mother notes that on Wednesday they noted a purulent discharge from opening in her lower leg. She denies chills, fever, nausea, vomiting or otherwise feeling of unwell Progress of Wound: Stable. - Physical Exam Vital Signs Temp Pulse Resp BP 98.2 F 90 18 138/77 H 09/08/17 10:27 09/08/17 10:27 09/08/17 10:27 09/08/17 10:27 General: Alert, Oriented x3, Cooperative, No apparent distress HEENT: Atraumatic, Normocephalic Oral: Moist Mucosa Neck: Supple Lungs: Normal air movement Cardiovascular: Regular rate Abdomen: Non Tender, Obese Extremities: No cyanosis, Edema Skin: Ulcer/ Wound Wound Measurements and Assessment WC - Nurse 1 - General Ulcer Measurement Start: 08/18/17 11:40 Freq: Status: Active Protocol: Activity Type Activity Date Activity User E-Sign Co-Sign Detail Recorded Client Recorded Date Recorded By Document 09/08/17 10:27 [facility] [id number] 09/08/17 10:36 [facility] 09/08/17 10:27 Wound Center Nurse 1 [Ulcer Assessment] #1 RLE Lateral Devi -Combined with other wound No -Current Size (cm) - Length 0.5 -Current Size (cm) - Width 0.3 -Current Size (cm) - Depth 0.2 -Total Square Cm 0.15 -Date of Last Picture (Recall this 09/08/17 field) -Photo Taken Yes -Epithelialization Small 1-33% -Tunneling No -Undermining/Tunneling No -Circular Undermining No -Exudate Amt Small (1-33%) -Exudate Type Sanguineous -Wound Margin Distinct, Outline Attached -Granulation Amt Large (67-100%) -Granulation Quality Red -Slough/Fibrin No -Necrosis Amt None Present (0 %) -Texture (Paulina-wound Skin Appearance) Scarring -Moisture (Paulina-wound Skin Appearance Assessed ) Dry/Scaly -Color (Paulina-wound Skin Appearance) Assessed -Temperature (Paulina-wound Skin No Abnormality Appearance) (Pt Warm) -Tenderness on Palpation (Paulina-wound No Skin Appearance) -Ulcer Cleansing Rinsed/ Irrigated with Saline -Foul Odor after Cleansing No -Anesthetic Used 4% Lidocaine Solution [Edema Assessment] -Lower Limb Edema Present Yes -Right Calf (cm) 63.7 -Right Ankle (cm) 31.6 WC - Nurse 2 - General Ulcer CM Notes Start: 08/18/17 11:40 Freq: Status: Active Protocol: Activity Type Activity Date Activity User E-Sign Co-Sign Detail Recorded Client Recorded Date Recorded By Document 09/08/17 11:25 DV [id number] 09/08/17 11:43 DV 09/08/17 11:25 Wound Center Nurse 2 [Procedure/Treatment] #1 RLE Lateral Devi -Time 11:25 -Correct Patient Yes -Correct Side, Site, Position Yes -Correct Procedure Yes -Procedure Performed Yes -Type of Procedure Debridement -Clinical Debridement Subcutaneous -Post Debridement Size (cm) - Length 0.5 -Post Debridement Size (cm) - Width 0.3 -Post Debridement Size (cm) - Depth 0.1 -Total Square Cm 0.15 -Wound/Ulcer Outcome Not Healed -Ulcer Cleansing Rinsed/ Irrigated with Saline -Foul Odor after Cleansing No -Bioengineered Tissue No -Bleeding Controlled with NA -Treatment Response Procedure Tolerated Well [See Physician Procedure note for Specifics] Pain Scale: 0-10 Numeric [Pain] -Is Patient Pain Free? Yes Musculoskeletal: No Muscle Wasting Neurological: Cranial nerves II-XII grossly intact Psych/Mental Status: Normal Affect Debridement Note Post-Debridement Measurements/Treatment WC - Nurse 2 - General Ulcer CM Notes Start: 08/18/17 11:40 Freq: Status: Active Protocol: Activity Type Activity Date Activity User E-Sign Co-Sign Detail Recorded Client Recorded Date Recorded By Document 08/18/17 12:06 DV [id number] 08/18/17 12:12 DV Document 08/25/17 09:58 DV [id number] 08/25/17 10:00 DV Document 09/01/17 10:25 DV [id number] 09/01/17 10:26 DV Document 09/08/17 11:25 DV [id number] 09/08/17 11:43 DV 08/18/17 08/25/17 09/01/17 12:06 09:58 10:25 Wound Center Nurse 2 #1 RLE Lateral Devi -Time 12:09 09:58 10:26 -Correct Patient Yes Yes Yes -Correct Side, Site, Position Yes Yes Yes -Correct Procedure Yes Yes Yes -Procedure Performed Yes Yes Yes -Type of Procedure Debridement Debridement Debridement -Clinical Debridement Subcutaneous Subcutaneous Subcutaneous -Post Debridement Size (cm) - Length 0.4 0.3 0.1 -Post Debridement Size (cm) - Width 0.4 0.4 0.1 -Post Debridement Size (cm) - Depth 0.5 0.3 0.1 -Total Square Cm 0.16 0.12 0.01 -Wound/Ulcer Outcome Amputation Not Healed Not Healed -Ulcer Cleansing Rinsed/ Rinsed/ Rinsed/ Irrigated with Irrigated with Irrigated with Saline Saline Saline -Foul Odor after Cleansing No No No -Bioengineered Tissue No No No -Bleeding Controlled with Pressure NA Pressure -Treatment Response Procedure Procedure Procedure Tolerated Well Tolerated Well Tolerated Well Pain Scale: 0-10 Numeric Is Patient Pain Free? Yes Yes Yes 09/08/17 11:25 Wound Center Nurse 2 #1 RLE Lateral Devi -Time 11:25 -Correct Patient Yes -Correct Side, Site, Position Yes -Correct Procedure Yes -Procedure Performed Yes -Type of Procedure Debridement -Clinical Debridement Subcutaneous -Post Debridement Size (cm) - Length 0.5 -Post Debridement Size (cm) - Width 0.3 -Post Debridement Size (cm) - Depth 0.1 -Total Square Cm 0.15 -Wound/Ulcer Outcome Not Healed -Ulcer Cleansing Rinsed/ Irrigated with Saline -Foul Odor after Cleansing No -Bioengineered Tissue No -Bleeding Controlled with NA -Treatment Response Procedure Tolerated Well Pain Scale: 0-10 Numeric Is Patient Pain Free? Yes Wound debrided: Right lower extremity Wound Grade/Stage: Stage II Type of Debridement: Excisional debridement Anesthesia Used: 4% Lidocaine Solution Depth: Down to and including healthy tissue, in the subcutaneous layer Percentage of wound debrided: 100 Instrument Used: 3mm curette Tissue Removed: Slough and devitalized tissue Severity: Fat Layer Exposed Amount of bleeding with debridement: Mild Bleeding Controlled with: Pressure Patient tolerated procedure well Assessment/Plan Active Problems Non-pressure ulcer of right lower extremity with fat layer exposed (Chronic) Bilateral lower extremity edema (Acute) Assessment: Cellulitis and ulcer of Right lower extremity possibly secondary to spider bite. Right lower leg abscess/ulcer s/p incision and drainage. Morbid obesity. Plan: Increased edema and circumference of wound. Patient not compliant with her compresison. Debridement done as documented above, procedure was well tolerated. Continue circaid for edema management. Patient counselled on complaince. Continue Promogram to wound. Change daily. Continue high-protein diet/supplements. Avoid idle standing.. Elevate lower extremity when seated and in bed. Exercise and weight loss recommended. Follow-up in 1 week. This note was generated with [employer] software. It may contain incorrect words, spelling, and punctuation that were not noted in checking the note before signing.
--- NOTE | 2017-09-08 12:56 | PN.PCM_ITS ---
(1) Non-pressure ulcer of right lower extremity with fat layer exposed Status: Chronic Current Visit: Yes Code(s): L97.912 - Non-pressure chronic ulcer of unspecified part of right lower leg with fat layer exposed (2) Bilateral lower extremity edema Status: Acute Current Visit: Yes Code(s): R60.0 - Localized edema Type of Wound Date of Service: 09/08/17 Chief Complaint: Left lower extremity ulcer and cellulitis. Left lower extremity abscess. History of Wound: Ms. Corona is a 31-year-old with past medical history of pulmonary embolism and mood disorders who was referred to the wound clinic by her primary care physician due to poor healing of her left lower extremity wounds. She reports being in a stable state of health until about 3-4 weeks ago when she initially noted burning and stinging of the left lower extremity and believes she was bitten by probably spider. About 2 weeks after that incident she noted flulike symptoms and subsequent worsening pain and redness of her left lower extremity. She was seen by primary care physician and subsequently referred to the emergency room where she was admitted and managed as a case of left lower extremity cellulitis. Since her discharge she had been followed up by her primary care physician and was wrapping her left lower extremity with gauze and Paul wraps. She states that she was recently given a cream by her PCP however she is unsure of the name. She was on antibiotics during her hospital stay and was discharged on doxycycline and Keflex. Wound was said to have been stable without any significant progression however her mother notes that on Wednesday they noted a purulent discharge from opening in her lower leg. She denies chills, fever, nausea, vomiting or otherwise feeling of unwell Progress of Wound: Stable. - Physical Exam Vital Signs Temp Pulse Resp BP 98.2 F 90 18 138/77 H 09/08/17 10:27 09/08/17 10:27 09/08/17 10:27 09/08/17 10:27 General: Alert, Oriented x3, Cooperative, No apparent distress HEENT: Atraumatic, Normocephalic Oral: Moist Mucosa Neck: Supple Lungs: Normal air movement Cardiovascular: Regular rate Abdomen: Non Tender, Obese Extremities: No cyanosis, Edema Skin: Ulcer/ Wound Wound Measurements and Assessment WC - Nurse 1 - General Ulcer Measurement Start: 08/18/17 11:40 Freq: Status: Active Protocol: Activity Type Activity Date Activity User E-Sign Co-Sign Detail Recorded Client Recorded Date Recorded By Document 09/08/17 10:27 [facility] [id number] 09/08/17 10:36 [facility] 09/08/17 10:27 Wound Center Nurse 1 [Ulcer Assessment] #1 RLE Lateral Devi -Combined with other wound No -Current Size (cm) - Length 0.5 -Current Size (cm) - Width 0.3 -Current Size (cm) - Depth 0.2 -Total Square Cm 0.15 -Date of Last Picture (Recall this 09/08/17 field) -Photo Taken Yes -Epithelialization Small 1-33% -Tunneling No -Undermining/Tunneling No -Circular Undermining No -Exudate Amt Small (1-33%) -Exudate Type Sanguineous -Wound Margin Distinct, Outline Attached -Granulation Amt Large (67-100%) -Granulation Quality Red -Slough/Fibrin No -Necrosis Amt None Present (0 %) -Texture (Paulina-wound Skin Appearance) Scarring -Moisture (Paulina-wound Skin Appearance Assessed ) Dry/Scaly -Color (Paulina-wound Skin Appearance) Assessed -Temperature (Paulina-wound Skin No Abnormality Appearance) (Pt Warm) -Tenderness on Palpation (Paulina-wound No Skin Appearance) -Ulcer Cleansing Rinsed/ Irrigated with Saline -Foul Odor after Cleansing No -Anesthetic Used 4% Lidocaine Solution [Edema Assessment] -Lower Limb Edema Present Yes -Right Calf (cm) 63.7 -Right Ankle (cm) 31.6 WC - Nurse 2 - General Ulcer CM Notes Start: 08/18/17 11:40 Freq: Status: Active Protocol: Activity Type Activity Date Activity User E-Sign Co-Sign Detail Recorded Client Recorded Date Recorded By Document 09/08/17 11:25 DV [id number] 09/08/17 11:43 DV 09/08/17 11:25 Wound Center Nurse 2 [Procedure/Treatment] #1 RLE Lateral Devi -Time 11:25 -Correct Patient Yes -Correct Side, Site, Position Yes -Correct Procedure Yes -Procedure Performed Yes -Type of Procedure Debridement -Clinical Debridement Subcutaneous -Post Debridement Size (cm) - Length 0.5 -Post Debridement Size (cm) - Width 0.3 -Post Debridement Size (cm) - Depth 0.1 -Total Square Cm 0.15 -Wound/Ulcer Outcome Not Healed -Ulcer Cleansing Rinsed/ Irrigated with Saline -Foul Odor after Cleansing No -Bioengineered Tissue No -Bleeding Controlled with NA -Treatment Response Procedure Tolerated Well [See Physician Procedure note for Specifics] Pain Scale: 0-10 Numeric [Pain] -Is Patient Pain Free? Yes Musculoskeletal: No Muscle Wasting Neurological: Cranial nerves II-XII grossly intact Psych/Mental Status: Normal Affect Debridement Note Post-Debridement Measurements/Treatment WC - Nurse 2 - General Ulcer CM Notes Start: 08/18/17 11:40 Freq: Status: Active Protocol: Activity Type Activity Date Activity User E-Sign Co-Sign Detail Recorded Client Recorded Date Recorded By Document 08/18/17 12:06 DV [id number] 08/18/17 12:12 DV Document 08/25/17 09:58 DV [id number] 08/25/17 10:00 DV Document 09/01/17 10:25 DV [id number] 09/01/17 10:26 DV Document 09/08/17 11:25 DV [id number] 09/08/17 11:43 DV 08/18/17 08/25/17 09/01/17 12:06 09:58 10:25 Wound Center Nurse 2 #1 RLE Lateral Devi -Time 12:09 09:58 10:26 -Correct Patient Yes Yes Yes -Correct Side, Site, Position Yes Yes Yes -Correct Procedure Yes Yes Yes -Procedure Performed Yes Yes Yes -Type of Procedure Debridement Debridement Debridement -Clinical Debridement Subcutaneous Subcutaneous Subcutaneous -Post Debridement Size (cm) - Length 0.4 0.3 0.1 -Post Debridement Size (cm) - Width 0.4 0.4 0.1 -Post Debridement Size (cm) - Depth 0.5 0.3 0.1 -Total Square Cm 0.16 0.12 0.01 -Wound/Ulcer Outcome Amputation Not Healed Not Healed -Ulcer Cleansing Rinsed/ Rinsed/ Rinsed/ Irrigated with Irrigated with Irrigated with Saline Saline Saline -Foul Odor after Cleansing No No No -Bioengineered Tissue No No No -Bleeding Controlled with Pressure NA Pressure -Treatment Response Procedure Procedure Procedure Tolerated Well Tolerated Well Tolerated Well Pain Scale: 0-10 Numeric Is Patient Pain Free? Yes Yes Yes 09/08/17 11:25 Wound Center Nurse 2 #1 RLE Lateral Devi -Time 11:25 -Correct Patient Yes -Correct Side, Site, Position Yes -Correct Procedure Yes -Procedure Performed Yes -Type of Procedure Debridement -Clinical Debridement Subcutaneous -Post Debridement Size (cm) - Length 0.5 -Post Debridement Size (cm) - Width 0.3 -Post Debridement Size (cm) - Depth 0.1 -Total Square Cm 0.15 -Wound/Ulcer Outcome Not Healed -Ulcer Cleansing Rinsed/ Irrigated with Saline -Foul Odor after Cleansing No -Bioengineered Tissue No -Bleeding Controlled with NA -Treatment Response Procedure Tolerated Well Pain Scale: 0-10 Numeric Is Patient Pain Free? Yes Wound debrided: Right lower extremity Wound Grade/Stage: Stage II Type of Debridement: Excisional debridement Anesthesia Used: 4% Lidocaine Solution Depth: Down to and including healthy tissue, in the subcutaneous layer Percentage of wound debrided: 100 Instrument Used: 3mm curette Tissue Removed: Slough and devitalized tissue Severity: Fat Layer Exposed Amount of bleeding with debridement: Mild Bleeding Controlled with: Pressure Patient tolerated procedure well Assessment/Plan Active Problems Non-pressure ulcer of right lower extremity with fat layer exposed (Chronic) Bilateral lower extremity edema (Acute) Assessment: Cellulitis and ulcer of Right lower extremity possibly secondary to spider bite. Right lower leg abscess/ulcer s/p incision and drainage. Morbid obesity. Plan: Increased edema and circumference of wound. Patient not compliant with her compresison. Debridement done as documented above, procedure was well tolerated. Continue circaid for edema management. Patient counselled on complaince. Continue Promogram to wound. Change daily. Continue high-protein diet/supplements. Avoid idle standing.. Elevate lower extremity when seated and in bed. Exercise and weight loss recommended. Follow-up in 1 week. This note was generated with [employer] software. It may contain incorrect words, spelling, and punctuation that were not noted in checking the note before signing.
--- NOTE | 2017-09-15 13:24 | PCM.WC.PN ---
(1) Non-pressure ulcer of right lower extremity with fat layer exposed Status: Chronic Current Visit: Yes Code(s): L97.912 - Non-pressure chronic ulcer of unspecified part of right lower leg with fat layer exposed (2) Bilateral lower extremity edema Status: Acute Current Visit: Yes Code(s): R60.0 - Localized edema Type of Wound Date of Service: 09/15/17 Chief Complaint: Left lower extremity ulcer and cellulitis. Left lower extremity abscess. History of Wound: Ms. Corona is a 31-year-old with past medical history of pulmonary embolism and mood disorders who was referred to the wound clinic by her primary care physician due to poor healing of her left lower extremity wounds. She reports being in a stable state of health until about 3-4 weeks ago when she initially noted burning and stinging of the left lower extremity and believes she was bitten by probably spider. About 2 weeks after that incident she noted flulike symptoms and subsequent worsening pain and redness of her left lower extremity. She was seen by primary care physician and subsequently referred to the emergency room where she was admitted and managed as a case of left lower extremity cellulitis. Since her discharge she had been followed up by her primary care physician and was wrapping her left lower extremity with gauze and Paul wraps. She states that she was recently given a cream by her PCP however she is unsure of the name. She was on antibiotics during her hospital stay and was discharged on doxycycline and Keflex. Wound was said to have been stable without any significant progression however her mother notes that on Wednesday they noted a purulent discharge from opening in her lower leg. She denies chills, fever, nausea, vomiting or otherwise feeling of unwell Progress of Wound: Wound is stable. Recently admitted and managed for right lower extremity cellulitis. She has done well since discharge and is currently on clindamycin. - Physical Exam Vital Signs Temp Pulse Resp BP 98.2 F 90 18 138/77 H 09/08/17 10:27 09/08/17 10:27 09/08/17 10:27 09/08/17 10:27 General: Alert, Oriented x3, Cooperative, No apparent distress HEENT: Atraumatic, Normocephalic Oral: Moist Mucosa Neck: Supple Lungs: Normal air movement Cardiovascular: Regular rate Abdomen: Non Tender, Obese Extremities: No cyanosis, Edema Skin: Ulcer/ Wound Wound Measurements and Assessment WC - Nurse 1 - General Ulcer Measurement Start: 08/18/17 11:40 Freq: Status: Active Protocol: Activity Type Activity Date Activity User E-Sign Co-Sign Detail Recorded Client Recorded Date Recorded By Document 09/15/17 13:09 DV [id number] 09/15/17 13:17 DV 09/15/17 13:09 Wound Center Nurse 1 [Ulcer Assessment] #1 RLE Lateral Devi -Combined with other wound No -Current Size (cm) - Length 0.4 -Current Size (cm) - Width 0.3 -Current Size (cm) - Depth 0.1 -Total Square Cm 0.12 -Photo Taken No -Epithelialization None Present -Tunneling No -Undermining/Tunneling No -Circular Undermining No -Classification - Thickness Full Thickness without Exposed Support Structure -Exudate Amt Small (1-33%) -Exudate Type Serous -Wound Margin Flat & Intact -Granulation Amt None Present (0 %) -Granulation Quality N/A -Slough/Fibrin No -Necrosis Amt Small (1-33%) -Necrotic Tissue Type Adherent Slough -Structure Exposed None/Limited to Skin Breakdown -Texture (Paulina-wound Skin Appearance) Assessed Induration -Moisture (Paulina-wound Skin Appearance Assessed ) Weeping -Color (Paulina-wound Skin Appearance) Assessed Erythema -Temperature (Paulina-wound Skin No Abnormality Appearance) (Pt Warm) [Edema Assessment] -Lower Limb Edema Present Yes -Right Calf (cm) 67.5 -Right Ankle (cm) 33.0 WC - Nurse 2 - General Ulcer CM Notes Start: 08/18/17 11:40 Freq: Status: Active Protocol: Activity Type Activity Date Activity User E-Sign Co-Sign Detail Recorded Client Recorded Date Recorded By Document 09/15/17 13:18 DV [id number] 09/15/17 13:19 DV 09/15/17 13:18 Wound Center Nurse 2 [Procedure/Treatment] #1 RLE Lateral Devi -Time 13:18 -Correct Patient Yes -Correct Side, Site, Position Yes -Correct Procedure Yes -Procedure Performed Yes -Type of Procedure Debridement -Clinical Debridement Subcutaneous -Post Debridement Size (cm) - Length 0.3 -Post Debridement Size (cm) - Width 0.4 -Post Debridement Size (cm) - Depth 0.2 -Total Square Cm 0.12 -Wound/Ulcer Outcome Not Healed -Ulcer Cleansing Rinsed/ Irrigated with Saline -Foul Odor after Cleansing No -Bioengineered Tissue No -Bleeding Controlled with Pressure -Treatment Response Procedure Tolerated Well [See Physician Procedure note for Specifics] Pain Scale: 0-10 Numeric [Pain] -Is Patient Pain Free? Yes Musculoskeletal: No Muscle Wasting Neurological: Cranial nerves II-XII grossly intact Psych/Mental Status: Normal Affect Debridement Note Post-Debridement Measurements/Treatment WC - Nurse 2 - General Ulcer CM Notes Start: 08/18/17 11:40 Freq: Status: Active Protocol: Activity Type Activity Date Activity User E-Sign Co-Sign Detail Recorded Client Recorded Date Recorded By Document 08/18/17 12:06 DV [id number] 08/18/17 12:12 DV Document 08/25/17 09:58 DV [id number] 08/25/17 10:00 DV Document 09/01/17 10:25 DV [id number] 09/01/17 10:26 DV Document 09/08/17 11:25 DV [id number] 09/08/17 11:43 DV Document 09/15/17 13:18 DV [id number] 09/15/17 13:19 DV 08/18/17 08/25/17 09/01/17 12:06 09:58 10:25 Wound Center Nurse 2 #1 RLE Lateral Devi -Time 12:09 09:58 10:26 -Correct Patient Yes Yes Yes -Correct Side, Site, Position Yes Yes Yes -Correct Procedure Yes Yes Yes -Procedure Performed Yes Yes Yes -Type of Procedure Debridement Debridement Debridement -Clinical Debridement Subcutaneous Subcutaneous Subcutaneous -Post Debridement Size (cm) - Length 0.4 0.3 0.1 -Post Debridement Size (cm) - Width 0.4 0.4 0.1 -Post Debridement Size (cm) - Depth 0.5 0.3 0.1 -Total Square Cm 0.16 0.12 0.01 -Wound/Ulcer Outcome Amputation Not Healed Not Healed -Ulcer Cleansing Rinsed/ Rinsed/ Rinsed/ Irrigated with Irrigated with Irrigated with Saline Saline Saline -Foul Odor after Cleansing No No No -Bioengineered Tissue No No No -Bleeding Controlled with Pressure NA Pressure -Treatment Response Procedure Procedure Procedure Tolerated Well Tolerated Well Tolerated Well Pain Scale: 0-10 Numeric Is Patient Pain Free? Yes Yes Yes 09/08/17 09/15/17 11:25 13:18 Wound Center Nurse 2 #1 RLE Lateral Devi -Time 11:25 13:18 -Correct Patient Yes Yes -Correct Side, Site, Position Yes Yes -Correct Procedure Yes Yes -Procedure Performed Yes Yes -Type of Procedure Debridement Debridement -Clinical Debridement Subcutaneous Subcutaneous -Post Debridement Size (cm) - Length 0.5 0.3 -Post Debridement Size (cm) - Width 0.3 0.4 -Post Debridement Size (cm) - Depth 0.1 0.2 -Total Square Cm 0.15 0.12 -Wound/Ulcer Outcome Not Healed Not Healed -Ulcer Cleansing Rinsed/ Rinsed/ Irrigated with Irrigated with Saline Saline -Foul Odor after Cleansing No No -Bioengineered Tissue No No -Bleeding Controlled with NA Pressure -Treatment Response Procedure Procedure Tolerated Well Tolerated Well Pain Scale: 0-10 Numeric Is Patient Pain Free? Yes Yes Wound debrided: Right lower extremity Wound Grade/Stage: Stage II Type of Debridement: Excisional debridement Depth: Down to and including healthy tissue, in the subcutaneous layer Percentage of wound debrided: 100 Instrument Used: 3mm curette Tissue Removed: Biofilm and devitalized tissue Severity: Limited To Skin Breakdown Amount of bleeding with debridement: Mild Bleeding Controlled with: Pressure Patient tolerated procedure well Assessment/Plan Active Problems Non-pressure ulcer of right lower extremity with fat layer exposed (Chronic) Bilateral lower extremity edema (Acute) Assessment: Cellulitis and ulcer of Right lower extremity possibly secondary to spider bite. Right lower leg abscess/ulcer s/p incision and drainage. Morbid obesity. Plan: S/P recent hospital admission for right lowr extremity cellulitis She has done well since discharge and is currently on clindamycin. Still having problems with compression. Debridement done as documented above, procedure was well tolerated. Continue circaid for edema management. Patient counselled on complaince. She however states that she recently ordered compression stockings due to problems with her circaid. Scheduled to arrive tomorrow. Continue Promogram to wound. Change daily. Continue high-protein diet/supplements. Avoid idle standing.. Elevate lower extremity when seated and in bed. Exercise and weight loss recommended. Follow-up in 1 week. This note was generated with [employer] software. It may contain incorrect words, spelling, and punctuation that were not noted in checking the note before signing.
--- NOTE | 2017-09-15 13:29 | PN.PCM_ITS ---
(1) Non-pressure ulcer of right lower extremity with fat layer exposed Status: Chronic Current Visit: Yes Code(s): L97.912 - Non-pressure chronic ulcer of unspecified part of right lower leg with fat layer exposed (2) Bilateral lower extremity edema Status: Acute Current Visit: Yes Code(s): R60.0 - Localized edema Type of Wound Date of Service: 09/15/17 Chief Complaint: Left lower extremity ulcer and cellulitis. Left lower extremity abscess. History of Wound: Ms. Corona is a 31-year-old with past medical history of pulmonary embolism and mood disorders who was referred to the wound clinic by her primary care physician due to poor healing of her left lower extremity wounds. She reports being in a stable state of health until about 3-4 weeks ago when she initially noted burning and stinging of the left lower extremity and believes she was bitten by probably spider. About 2 weeks after that incident she noted flulike symptoms and subsequent worsening pain and redness of her left lower extremity. She was seen by primary care physician and subsequently referred to the emergency room where she was admitted and managed as a case of left lower extremity cellulitis. Since her discharge she had been followed up by her primary care physician and was wrapping her left lower extremity with gauze and Paul wraps. She states that she was recently given a cream by her PCP however she is unsure of the name. She was on antibiotics during her hospital stay and was discharged on doxycycline and Keflex. Wound was said to have been stable without any significant progression however her mother notes that on Wednesday they noted a purulent discharge from opening in her lower leg. She denies chills, fever, nausea, vomiting or otherwise feeling of unwell Progress of Wound: Wound is stable. Recently admitted and managed for right lower extremity cellulitis. She has done well since discharge and is currently on clindamycin. - Physical Exam Vital Signs Temp Pulse Resp BP 98.2 F 90 18 138/77 H 09/08/17 10:27 09/08/17 10:27 09/08/17 10:27 09/08/17 10:27 General: Alert, Oriented x3, Cooperative, No apparent distress HEENT: Atraumatic, Normocephalic Oral: Moist Mucosa Neck: Supple Lungs: Normal air movement Cardiovascular: Regular rate Abdomen: Non Tender, Obese Extremities: No cyanosis, Edema Skin: Ulcer/ Wound Wound Measurements and Assessment WC - Nurse 1 - General Ulcer Measurement Start: 08/18/17 11:40 Freq: Status: Active Protocol: Activity Type Activity Date Activity User E-Sign Co-Sign Detail Recorded Client Recorded Date Recorded By Document 09/15/17 13:09 DV [id number] 09/15/17 13:17 DV 09/15/17 13:09 Wound Center Nurse 1 [Ulcer Assessment] #1 RLE Lateral Devi -Combined with other wound No -Current Size (cm) - Length 0.4 -Current Size (cm) - Width 0.3 -Current Size (cm) - Depth 0.1 -Total Square Cm 0.12 -Photo Taken No -Epithelialization None Present -Tunneling No -Undermining/Tunneling No -Circular Undermining No -Classification - Thickness Full Thickness without Exposed Support Structure -Exudate Amt Small (1-33%) -Exudate Type Serous -Wound Margin Flat & Intact -Granulation Amt None Present (0 %) -Granulation Quality N/A -Slough/Fibrin No -Necrosis Amt Small (1-33%) -Necrotic Tissue Type Adherent Slough -Structure Exposed None/Limited to Skin Breakdown -Texture (Paulina-wound Skin Appearance) Assessed Induration -Moisture (Paulina-wound Skin Appearance Assessed ) Weeping -Color (Paulina-wound Skin Appearance) Assessed Erythema -Temperature (Paulina-wound Skin No Abnormality Appearance) (Pt Warm) [Edema Assessment] -Lower Limb Edema Present Yes -Right Calf (cm) 67.5 -Right Ankle (cm) 33.0 WC - Nurse 2 - General Ulcer CM Notes Start: 08/18/17 11:40 Freq: Status: Active Protocol: Activity Type Activity Date Activity User E-Sign Co-Sign Detail Recorded Client Recorded Date Recorded By Document 09/15/17 13:18 DV [id number] 09/15/17 13:19 DV 09/15/17 13:18 Wound Center Nurse 2 [Procedure/Treatment] #1 RLE Lateral Devi -Time 13:18 -Correct Patient Yes -Correct Side, Site, Position Yes -Correct Procedure Yes -Procedure Performed Yes -Type of Procedure Debridement -Clinical Debridement Subcutaneous -Post Debridement Size (cm) - Length 0.3 -Post Debridement Size (cm) - Width 0.4 -Post Debridement Size (cm) - Depth 0.2 -Total Square Cm 0.12 -Wound/Ulcer Outcome Not Healed -Ulcer Cleansing Rinsed/ Irrigated with Saline -Foul Odor after Cleansing No -Bioengineered Tissue No -Bleeding Controlled with Pressure -Treatment Response Procedure Tolerated Well [See Physician Procedure note for Specifics] Pain Scale: 0-10 Numeric [Pain] -Is Patient Pain Free? Yes Musculoskeletal: No Muscle Wasting Neurological: Cranial nerves II-XII grossly intact Psych/Mental Status: Normal Affect Debridement Note Post-Debridement Measurements/Treatment WC - Nurse 2 - General Ulcer CM Notes Start: 08/18/17 11:40 Freq: Status: Active Protocol: Activity Type Activity Date Activity User E-Sign Co-Sign Detail Recorded Client Recorded Date Recorded By Document 08/18/17 12:06 DV [id number] 08/18/17 12:12 DV Document 08/25/17 09:58 DV [id number] 08/25/17 10:00 DV Document 09/01/17 10:25 DV [id number] 09/01/17 10:26 DV Document 09/08/17 11:25 DV [id number] 09/08/17 11:43 DV Document 09/15/17 13:18 DV [id number] 09/15/17 13:19 DV 08/18/17 08/25/17 09/01/17 12:06 09:58 10:25 Wound Center Nurse 2 #1 RLE Lateral Devi -Time 12:09 09:58 10:26 -Correct Patient Yes Yes Yes -Correct Side, Site, Position Yes Yes Yes -Correct Procedure Yes Yes Yes -Procedure Performed Yes Yes Yes -Type of Procedure Debridement Debridement Debridement -Clinical Debridement Subcutaneous Subcutaneous Subcutaneous -Post Debridement Size (cm) - Length 0.4 0.3 0.1 -Post Debridement Size (cm) - Width 0.4 0.4 0.1 -Post Debridement Size (cm) - Depth 0.5 0.3 0.1 -Total Square Cm 0.16 0.12 0.01 -Wound/Ulcer Outcome Amputation Not Healed Not Healed -Ulcer Cleansing Rinsed/ Rinsed/ Rinsed/ Irrigated with Irrigated with Irrigated with Saline Saline Saline -Foul Odor after Cleansing No No No -Bioengineered Tissue No No No -Bleeding Controlled with Pressure NA Pressure -Treatment Response Procedure Procedure Procedure Tolerated Well Tolerated Well Tolerated Well Pain Scale: 0-10 Numeric Is Patient Pain Free? Yes Yes Yes 09/08/17 09/15/17 11:25 13:18 Wound Center Nurse 2 #1 RLE Lateral Devi -Time 11:25 13:18 -Correct Patient Yes Yes -Correct Side, Site, Position Yes Yes -Correct Procedure Yes Yes -Procedure Performed Yes Yes -Type of Procedure Debridement Debridement -Clinical Debridement Subcutaneous Subcutaneous -Post Debridement Size (cm) - Length 0.5 0.3 -Post Debridement Size (cm) - Width 0.3 0.4 -Post Debridement Size (cm) - Depth 0.1 0.2 -Total Square Cm 0.15 0.12 -Wound/Ulcer Outcome Not Healed Not Healed -Ulcer Cleansing Rinsed/ Rinsed/ Irrigated with Irrigated with Saline Saline -Foul Odor after Cleansing No No -Bioengineered Tissue No No -Bleeding Controlled with NA Pressure -Treatment Response Procedure Procedure Tolerated Well Tolerated Well Pain Scale: 0-10 Numeric Is Patient Pain Free? Yes Yes Wound debrided: Right lower extremity Wound Grade/Stage: Stage II Type of Debridement: Excisional debridement Depth: Down to and including healthy tissue, in the subcutaneous layer Percentage of wound debrided: 100 Instrument Used: 3mm curette Tissue Removed: Biofilm and devitalized tissue Severity: Limited To Skin Breakdown Amount of bleeding with debridement: Mild Bleeding Controlled with: Pressure Patient tolerated procedure well Assessment/Plan Active Problems Non-pressure ulcer of right lower extremity with fat layer exposed (Chronic) Bilateral lower extremity edema (Acute) Assessment: Cellulitis and ulcer of Right lower extremity possibly secondary to spider bite. Right lower leg abscess/ulcer s/p incision and drainage. Morbid obesity. Plan: S/P recent hospital admission for right lowr extremity cellulitis She has done well since discharge and is currently on clindamycin. Still having problems with compression. Debridement done as documented above, procedure was well tolerated. Continue circaid for edema management. Patient counselled on complaince. She however states that she recently ordered compression stockings due to problems with her circaid. Scheduled to arrive tomorrow. Continue Promogram to wound. Change daily. Continue high-protein diet/supplements. Avoid idle standing.. Elevate lower extremity when seated and in bed. Exercise and weight loss recommended. Follow-up in 1 week. This note was generated with [employer] software. It may contain incorrect words, spelling, and punctuation that were not noted in checking the note before signing.
== END 2017-09-16 23:59 ==
LOC: WC 10:00
PROVIDERS: Family Provider Family Medicine; PCP Family Medicine; Visit Provider Internal Medicine
DX: L97.912 Non-pressure chronic ulcer of unspecified part of right lower leg with fat layer exposed (principal); R60.0 Localized edema; Z86.711 Personal history of pulmonary embolism; E66.01 Morbid (severe) obesity due to excess calories; L02.415 Cutaneous abscess of right lower limb
CPT/HCPCS: 11042; 97597

== ENCOUNTER 2017-09-29 09:56 | Outpatient (RCR) | payer OTHER, SELFPAY ==
[2017-09-17 00:40] VITALS: BP 138/77; PULSE 90; RESP 18; TEMP 36.8
[2017-09-29 12:17] VITALS: BP 146/77; PULSE 80; RESP 20; TEMP 37
--- NOTE | 2017-09-29 19:28 | PN.PCM_ITS ---
(1) Bilateral lower extremity edema Status: Acute Current Visit: No Code(s): R60.0 - Localized edema (2) Non-pressure ulcer of right lower extremity with fat layer exposed Status: Chronic Current Visit: No Code(s): L97.912 - Non-pressure chronic ulcer of unspecified part of right lower leg with fat layer exposed Type of Wound Date of Service: 09/29/17 Chief Complaint: Left lower extremity ulcer and cellulitis. Left lower extremity abscess. History of Wound: Ms. Corona is a 31-year-old with past medical history of pulmonary embolism and mood disorders who was referred to the wound clinic by her primary care physician due to poor healing of her left lower extremity wounds. She reports being in a stable state of health until about 3-4 weeks ago when she initially noted burning and stinging of the left lower extremity and believes she was bitten by probably spider. About 2 weeks after that incident she noted flulike symptoms and subsequent worsening pain and redness of her left lower extremity. She was seen by primary care physician and subsequently referred to the emergency room where she was admitted and managed as a case of left lower extremity cellulitis. Since her discharge she had been followed up by her primary care physician and was wrapping her left lower extremity with gauze and Paul wraps. She states that she was recently given a cream by her PCP however she is unsure of the name. She was on antibiotics during her hospital stay and was discharged on doxycycline and Keflex. Wound was said to have been stable without any significant progression however her mother notes that on Wednesday they noted a purulent discharge from opening in her lower leg. She denies chills, fever, nausea, vomiting or otherwise feeling of unwell Progress of Wound: Healed. - Physical Exam Vital Signs Temp Pulse Resp BP 98.6 F 80 20 H 146/77 H 09/29/17 12:17 09/29/17 12:17 09/29/17 12:17 09/29/17 12:17 General: Alert, Oriented x3, Cooperative, No apparent distress HEENT: Atraumatic Oral: Moist Mucosa Neck: Supple Lungs: Normal air movement Abdomen: Non Tender, Obese Extremities: Edema Wound Measurements and Assessment WC - Nurse 1 - General Ulcer Measurement Start: 09/29/17 12:17 Freq: Status: Active Protocol: Activity Type Activity Date Activity User E-Sign Co-Sign Detail Recorded Client Recorded Date Recorded By Document 09/29/17 12:17 [id number] 09/29/17 12:23 09/29/17 12:17 Wound Center Nurse 1 [Ulcer Assessment] #1 RLE Lateral Devi -Combined with other wound No -Current Size (cm) - Length 0.1 -Current Size (cm) - Width 0.1 -Current Size (cm) - Depth 0.1 -Total Square Cm 0.01 -Date of Last Picture (Recall this 09/29/17 field) -Photo Taken Yes -Epithelialization Large 67-100% -Tunneling No -Undermining/Tunneling No -Circular Undermining No -Exudate Amt None Present (0 %) -Wound Margin Distinct, Outline Attached -Slough/Fibrin No -Necrosis Amt None Present (0 %) -Structure Exposed N/A -Texture (Paulina-wound Skin Appearance) No Abnormality -Moisture (Paulina-wound Skin Appearance No Abnormality ) -Color (Paulina-wound Skin Appearance) No Abnormality -Temperature (Paulina-wound Skin No Abnormality Appearance) (Pt Warm) -Tenderness on Palpation (Paulina-wound No Skin Appearance) -Ulcer Cleansing Rinsed/ Irrigated with Saline -Foul Odor after Cleansing No [Edema Assessment] -Lower Limb Edema Present Yes -Right Calf (cm) 63 -Right Ankle (cm) 32.5 -Left Calf (cm) 60.5 -Left Ankle (cm) 32.5 WC - Nurse 2 - General Ulcer CM Notes Start: 09/29/17 12:17 Freq: Status: Active Protocol: Activity Type Activity Date Activity User E-Sign Co-Sign Detail Recorded Client Recorded Date Recorded By Document 09/29/17 12:47 [id number] 09/29/17 12:50 09/29/17 12:47 Wound Center Nurse 2 [Procedure/Treatment] #1 RLE Lateral Devi -Time 12:48 -Correct Patient Yes -Correct Side, Site, Position Yes -Correct Procedure Yes -Procedure Performed No -Post Debridement Size (cm) - Length 0 -Post Debridement Size (cm) - Width 0 -Post Debridement Size (cm) - Depth 0 -Total Square Cm 0 -Wound/Ulcer Outcome Healed- Epithelialized -Ulcer Cleansing Rinsed/ Irrigated with Saline -Foul Odor after Cleansing No -Bioengineered Tissue No [See Physician Procedure note for Specifics] Pain Scale: 0-10 Numeric [Pain] -Is Patient Pain Free? Yes Musculoskeletal: No Muscle Wasting Neurological: Cranial nerves II-XII grossly intact Psych/Mental Status: Normal Affect Debridement Note Post-Debridement Measurements/Treatment WC - Nurse 2 - General Ulcer CM Notes Start: 09/29/17 12:17 Freq: Status: Active Protocol: Activity Type Activity Date Activity User E-Sign Co-Sign Detail Recorded Client Recorded Date Recorded By Document 09/29/17 12:47 [email or web address] [id number] 09/29/17 12:50 LUCIO 09/29/17 12:47 Wound Center Nurse 2 #1 RLE Lateral Devi -Time 12:48 -Correct Patient Yes -Correct Side, Site, Position Yes -Correct Procedure Yes -Procedure Performed No -Post Debridement Size (cm) - Length 0 -Post Debridement Size (cm) - Width 0 -Post Debridement Size (cm) - Depth 0 -Total Square Cm 0 -Wound/Ulcer Outcome Healed- Epithelialized -Ulcer Cleansing Rinsed/ Irrigated with Saline -Foul Odor after Cleansing No -Bioengineered Tissue No Pain Scale: 0-10 Numeric Is Patient Pain Free? Yes Assessment/Plan Assessment: Cellulitis and ulcer of Right lower extremity possibly secondary to spider bite. Right lower leg abscess/ulcer s/p incision and drainage. Morbid obesity. Plan: Wound is healed. Patient strongly advised/encouraged on edema management. She was advised to consistently use her compression stockings and CircAid. Weight loss and exercise also recommended. Advised to follow-up with the lymphedema clinic in [place]. Encouraged to call with any questions or concerns. Discharged from the wound clinic. This note was generated with [employer] dictation software. It may contain incorrect words, spelling, and punctuation that were not noted in checking the note before signing.
== END 2017-10-16 23:59 ==
LOC: WC 09:56
PROVIDERS: Family Provider Family Medicine; PCP Family Medicine; Visit Provider Internal Medicine
DX: L97.812 Non-pressure chronic ulcer of other part of right lower leg with fat layer exposed (principal); R60.0 Localized edema; Z86.711 Personal history of pulmonary embolism; E66.01 Morbid (severe) obesity due to excess calories; Z71.3 Dietary counseling and surveillance
CPT/HCPCS: 99211; 99213; G0463

== ENCOUNTER 2020-02-14 18:48 | Emergency (ER) | payer OTHER, SELFPAY ==
[2020-02-14 18:49] VITALS: BP 179/88; PULSE 80; RESP 17; TEMP 36.1; O2SAT 100; BMI 70.4
--- NOTE | 2020-02-14 19:19 | CT_ITS ---
STUDY: CTA CHEST REASON FOR EXAM: Female, 34 years old. CHEST Pain, elevated DDIMER,PREG TEST WAS NEGATIVE RADIATION DOSAGE (If Supplied By Facility): CTDIvol = ( 19.79 ) mGy, DLP = ( 528.77 ) mGycm TECHNIQUE: The examination was performed with the intravenous administration of IV 100mL Isovue-370. Post-processing of the angiographic images was performed, with multiplanar reformation and 3D reconstruction. Individualized dose optimization techniques were used for this CT. COMPARISON: 08/28/2013 FINDINGS: Normal enhancement of the main pulmonary artery and right and left pulmonary arteries. There is suboptimal enhancement of the bilateral peripheral pulmonary arteries. There is no demonstrated gross pulmonary embolism. Normal thoracic aorta and visualized great vessels. There is no demonstrated aortic dissection. Normal heart and pericardium. Normal mediastinum. Normal hilar regions. Normal visualized trachea and bronchi. The lungs are well expanded. Normal pulmonary parenchyma. Normal pleura. Normal chest wall structures. There are degenerative changes of thoracic spine. There are bilateral posterior 11th rib deformities with an appearance suggestive of healing rib fractures. Normal visualized upper abdomen. CT/CTA Chest W/WO Contrast IMPRESSION: No demonstrated gross pulmonary embolism or arterial dissection. No acute cardiopulmonary process. Healing bilateral posterior 11th rib fractures. Electronically Signed: Crystal Ramires MD at 20:52 EDT Tel , Service support ,
--- NOTE | 2020-02-14 19:19 | EKG12_ITS ---
Test Reason : ABNORMAL LABS Blood Pressure : / mmHG Vent. Rate : 065 BPM Atrial Rate : 065 BPM P-R Int : 152 ms QRS Dur : 100 ms QT Int : 436 ms P-R-T Axes : 013 047 -04 degrees QTc Int : 453 ms Normal sinus rhythm Normal ECG Confirmed by FATUMA GRANT, SHABANA ([id number]), editorial cartoonist NEERAJ PARK ([id number]) on 02/22/2020 12:48:53 PM Referred By: SILKE HORTON Confirmed By:ALEENA BURRIS MD
[2020-02-14 19:45] LABS: Absolute Lymphocyte Count 1.99 X10^3/uL (0.83-4.51); Absolute Neutrophil Count 3.7 X10^3/uL (2.0-7.7); Basophil# 0.03 X10^3/uL; Basophil% 0.5 % (0-1); Eosinophil# 0.22 X10^3/uL; Eosinophils% 3.4 % (0-5); Hematocrit 36.3 % (37-47); Hemoglobin 11.1 g/dL (12.0-15.0); Lymphocyte # 1.99 X10^3/ul (4.0); Lymphocyte % 30.7 % (19-41); Mean Corp Hgb Conc 30.6 g/dL (32-36); Mean Corpuscular Hgb 26.9 pg (27.0-32.0); Mean Corpuscular Volume 87.9 fL (81-99); Mean Platelet Vol. 12.2 fl (6.2-12.0); Monocyte# 0.57 X10^3/uL; Monocyte% 8.8 % (0-10); NRBC Flagged by Analyzer 0 % (0-5); Neutrophil # 3.66 X10^3/uL (2.7-7.7); Neutrophil % 56.4 % (47-70); Platelet Count 259 K/mm3 (150-450); RBC Distribution Width CV 14.4 % (11.6-14.6); RBC Distribution Width SD 46.3 fl (35.1-43.9); Red Blood Count 4.13 M/mm3 (4.2-5.4); White Blood Count 6.5 K/mm3 (4.4-11.0)
--- NOTE | 2020-02-14 19:45 | ED.DCSUM_ITS ---
History of Present Illness Chief Complaint: Abn Labs Informant: Patient Onset: Month(s) Context: Gradual Onset Timing: Intermittent Narrative: Patient is a 34-year-old female with remote history of PE presenting with ran vated D-dimer on outpatient lab work. Patient had a D-dimer obtained by her PCP because she been having intermittent chest pain in her left lower chest wall since November, 2 months ago. She states usually worse with movements. Denies any radiation of the pain. It also is worse with direct palpation of the area. She describes as aching in nature. She denies any associated cough and she is had some mild associated shortness of breath but thought it was just from her weight. She currently does not have any pain. She denies any swelling of her lower extremities. She is not been on any oral anticoagulation for the past 6 years. No other complaints at this time. Last menstrual period was 1 month ago. She does not believe she is . Past Medical History - Allergies and Home Meds Allergies/Adverse Reactions: Allergies No Known Allergies Allergy (Verified 02/14/20 18:48) Primary Care Physician: Addy Ugalde MD [Primary Care Provider] - Past Medical History: - - Depression, history of PE Surgical History: tonsillectomy, - Smoking Status: Never smoker - Family History Maternal Family History: Reports: No pertinent history Review of Systems General: Denies: Chills, Fever, Sweats Eyes: Denies: Visual changes - bilaterally, Diplopia ENT: Denies: Rhinorrhea, Sore throat Cardiovascular: Reports: Chest pain. Denies: Palpitations Respiratory: Reports: Dyspnea. Denies: Cough, Dyspnea on exertion Gastrointestinal: Denies: Abdominal pain, Nausea, Vomiting, Diarrhea, Melena, Hematochezia Genitourinary: Denies: Dysuria, Hematuria, Frequency Musculoskeletal: Denies: Back pain, Extremity Pain Skin: Denies: Rash, Wounds Neurological: Denies: Headache, Weakness, Numbness Physical Exam Vital Signs/Narrative: Vital Signs Temp Pulse Resp BP Pulse Ox 02/14/20 18:49 97.0 F L 80 17 179/88 H 100 Inital Vital Signs reviewed: Yes General: Well nourished, Well developed, No Acute Distress Head: Normocephalic, Atraumatic Eyes: Perrl, EOMI ENT: Moist mucous membranes, No rhinorrhea Neck: Supple, Nontender Cardiovascular: Regular rate, Regular rhythm, No murmurs Respiratory: No distress, CTA bilaterally, Chest tenderness - Left anterior chest wall tenderness palpation. No obvious deformity associated. No crepitus. Abdomen: Soft, Nontender, Nondistended, Normal bowel sounds Back: Nontender, Normal Inspection. Negative for: CVA tenderness, Spinal tenderness Extremities: Nontender, Edema - Nonpitting bilateral pedal edema., - - Chronic skin changes to lower extremities Skin: Normal color, No rash Neurological: Alert, Oriented x3, Cranial nerves II-XII grossly intact, Normal Strength, Normal Sensation Psychological: Normal affect, Normal Mood Diagnostic/Tx/Re-eval Clinical Impression(s) from Imaging Studies Chest CTA 02/14/20 19:19 IMPRESSION: No demonstrated gross pulmonary embolism or arterial dissection. No acute cardiopulmonary process. Healing bilateral posterior 11th rib fractures. Electronically Signed: Crystal Ramires MD at 20:52 EDT Tel , Service support , Laboratory Data 02/14/20 02/14/20 02/14/20 19:23 19:23 19:28 WBC 6.5 RBC 4.13 L Hgb 11.1 L Hct 36.3 L MCV 87.9 MCH 26.9 L MCHC 30.6 L RDW Std Deviation 46.3 H RDW Coeff of Karly 14.4 Plt Count 259 MPV 12.2 H Immature Gran % (Auto) 0.200 Neut % (Auto) 56.4 Lymph % (Auto) 30.7 Williamson % (Auto) 8.8 Eos % (Auto) 3.4 Baso % (Auto) 0.5 Absolute Neuts (auto) 3.7 Absolute Lymphs (auto) 1.99 Nucleated RBC % 0 Sodium 140 Potassium 3.1 L Chloride 107 Carbon Dioxide 29.0 Anion Gap 4 L BUN 15 Creatinine 0.76 Estim Creat Clear Calc 111.73 Est GFR (MDRD) Af Amer 111 Est GFR (MDRD) Non-Af 92 BUN/Creatinine Ratio 19.7 Glucose 90 Calcium 8.8 Troponin I 0.018 Urine Test Negative - Rhythm Strip Rhythm Strip: Sinus Rhythm Rate: 65 Ectopy: None - EKG Initial EKG Interpretation: Sinus Rhythm, - - Normal sinus rhythm at a rate of 65 Normal axis Normal intervals Normal ST segments Compared to prior EKG on 05/05/2017 patient actually has reversal of nonspecific T wave changes - Medical Decision Making Patient evaluated for a D-dimer obtained on outpatient lab work. This was done because patient's been having some chest pain and does have a history of PE. EKG is normal. Cardiac work-up is normal and CTA does not show any acute PE. It is suboptimal for a subsegmental PE however given her symptoms of been going on since November and she is otherwise well-appearing I think the study was adequate. Patient is encouraged to continue to follow-up with her primary care doctor. She is counseled on return precautions. Do not think she requires further evaluation or inpatient cardiac evaluation at this time. Patient is counseled on signs and symptoms requiring return to the emergency room. Patient verbalizes agreement and understand this plan. Patient discharged home in s table and improved condition. ED Disposition - Plan for ED Patient: Disposition: Home or Assisted Living Diagnosis: Chest pain of uncertain etiology Instructions: ED Chest Pain Atypical Unkn Cause Referrals: Addy Ugalde MD [Primary Care Provider] - Additional Instructions: Your lab work was normal today. He did not have sign of a blood clot today. You are safe to continue to follow-up outpatient with your primary care doctor.
[2020-02-14 20:06] LABS: Anion Gap 4 (5-15); BUN 15 mg/dL (7-18); BUN/Creat Ratio 19.7 RATIO (10-20); Calcium,Total 8.8 mg/dL (8.5-10.1); Chloride 107 mmol/L (98-107); Creatinine, Serum 0.76 mg/dL (0.55-1.02); EST Glomerular Filtration Rate 92 mL/min (>60); Est Glom Filt Rate - Afr Amer 111 mL/min (>60); Estimated Creatinine Clearance 111.73 ml/min; Glucose 90 mg/dL (74-106); Potassium 3.1 mmol/L (3.5-5.1); Sodium Level 140 mmol/L (136-145)
[2020-02-14 20:11] LABS: Internal QC Validated? YES +Cl - CLEAR BKGD; Pregnancy, Urine Negative Negative
[2020-02-14 21:15] VITALS: BP 125/72; PULSE 62; RESP 18; O2SAT 98
== END 2020-02-14 21:20 | disposition home or self-care (01) ==
PROVIDERS: Emergency Provider Emergency Medicine; PCP Family Medicine
DX: R07.9 Chest pain, unspecified (principal); R79.89 Other specified abnormal findings of blood chemistry; Z79.899 Other long term (current) drug therapy; Z86.711 Personal history of pulmonary embolism
CPT/HCPCS: 71275; 80048; 81025; 84484; 85025; 93005; 99281; Q9967; A4216

== ENCOUNTER → 2020-02-14 | Outpatient (CLI) | payer OTHER, SELFPAY ==
[2020-02-14 18:01] LABS: D-Dimer Quantitative (DVT/PE) 0.52 FEU/ug/m (0.27-0.49)
== END | disposition home or self-care (01) ==
LOC: LABSPEC 17:00
PROVIDERS: PCP Family Medicine; Visit Provider Family Medicine
DX: I26.99 Other pulmonary embolism without acute cor pulmonale (principal)
CPT/HCPCS: 85379

== ENCOUNTER 2023-12-07 14:44 | Emergency (ER) | payer OTHER, SELFPAY ==
[2023-12-07 14:45] VITALS: BP 181/86; PULSE 77; RESP 16; TEMP 36.6; O2SAT 100
[2023-12-07 15:49] LABS: Absolute Lymphocyte Count 1.78 X10^3/uL (0.83-4.51); Absolute Neutrophil Count 5.6 X10^3/uL (2.0-7.7); Basophil# 0.03 X10^3/uL; Basophil% 0.4 % (0-1); Eosinophil# 0.22 X10^3/uL; Eosinophils% 2.7 % (0-5); Hematocrit 36.8 % (37-47); Hemoglobin 11.3 g/dL (12.0-15.0); Lymphocyte # 1.78 X10^3/ul (0.83-4.51); Lymphocyte % 21.8 % (19-41); Mean Corp Hgb Conc 30.7 g/dL (32-36); Mean Corpuscular Hgb 26.5 pg (27.0-32.0); Mean Corpuscular Volume 86.4 fL (81-99); Mean Platelet Vol. 11.3 fl (6.2-12.0); Monocyte# 0.46 X10^3/uL; Monocyte% 5.6 % (0-10); NRBC Flagged by Analyzer 0 % (0-5); Neutrophil # 5.64 X10^3/uL (2.7-7.7); Neutrophil % 69.3 % (47-70); Platelet Count 246 K/mm3 (150-450); RBC Distribution Width CV 14.9 % (11.6-14.6); RBC Distribution Width SD 46.9 fl (35.1-43.9); Red Blood Count 4.26 M/mm3 (4.2-5.4); White Blood Count 8.2 K/mm3 (4.4-11.0)
[2023-12-07 16:11] LABS: Anion Gap 3 (5-15); BUN 13 mg/dL (7-18); BUN/Creat Ratio 20.5 RATIO (10-20); Calcium,Total 9.1 mg/dL (8.5-10.1); Chloride 106 mmol/L (98-107); Creatinine, Serum 0.64 mg/dL (0.55-1.02); EST Glomerular Filtration Rate 111 mL/min (>60); Est Glom Filt Rate - Afr Amer 134 mL/min (>60); Glucose 110 mg/dL (74-106); Sodium Level 138 mmol/L (136-145)
[2023-12-07 16:33] LABS: International Normalized Ratio 1.1
--- NOTE | 2023-12-07 16:52 | ED.VIS.DYS ---
HPI History of Present Illness Chief Complaint: Shortness of Breath Informant: patient Onset/Context/Timing Onset: Today Context: sudden Timing: Continuous Quality: Positive for - (Cannot catch my breath) Worsened by: Nothing Relieved by: Nothing Associated Symptoms Negative for cough, rhinorrhea, ear pain, fever, sore throat, chills, sweats, clear sputum, white sputum, yellow sputum or green sputum Chest Pain: Positive for Pressure Narrative Narrative: Patient presents with back pain and shortness of breath. Patient states her shortness of breath started today. Patient states that she was having some pain in her back yesterday. Patient states it feels like it is harder for her to catch her breath. Patient states she is also having some pressure in her chest. Patient states her pain is worse with deep breathing. Patient denies any cough. Patient denies any nausea or vomiting. Patient denies any diaphoresis. Patient also states she feels like she is wheezing at times. PE Risk Factors: Positive for Prior DVT or PE; Negative for Cancer, Recent immobilization, Recent surgery or Recent travel [facility] Medical History (Updated 12/07/23 @ 20:[address] Ismael Coleman, DO) Pulmonary emboli Hypertension Home Medications ?Medication ?Instructions ?Recorded ?Last Taken ?Type bupropion HCl 150 mg 24 hr tablet, 150 mg PO DAILY depression 03/07/17 05/04/17 History extended release (Wellbutrin XL) fluoxetine 20 mg capsule 20 mg PO DAILY depression 03/07/17 05/05/17 History ferrous sulfate 325 mg (65 mg 325 mg PO BIDCM iron supplement 05/05/17 05/05/17 History iron) tablet acetaminophen 325 mg tablet 500 mg (1.5385 x 325 mg) PO Q6H 05/10/17 Unknown Rx (Tylenol) PRN PRN Mild Pain (1-3)/Temp > 100.7 F omeprazole 20 mg capsule,delayed 20 mg PO DAILY 02/14/20 Unknown History release Allergy/AdvReac Type Severity Reaction Status Date / Time No Known Allergies Allergy Verified 12/07/23 14:46 Surgical History no surgical history no surgical history Social History Smoking Status: Never smoker ROS ROS ED Constitutional Constitutional ED: Denies chills or fever(s) Eyes Eyes: Denies blurry vision or change in vision ENT ENT ED: Denies rhinorrhea or sore throat Cardiovascular Cardiovascular: Reports chest pain, palpitations and racing heartbeat Respiratory/Chest Respiratory/Chest: Reports dyspnea; Denies cough Gastrointestinal Gastrointestinal: Denies nausea or vomiting Genitourinary Genitourinary ED: Denies dysuria or hematuria Musculoskeletal Musculoskeletal: Reports back pain; Denies neck pain Integumentary Denies abscess or rash Neurologic Neurologic: Denies headache(s) or weakness Allergic/Immunologic Allergic/Immunologic ED: Denies mouth swelling or urticaria EXAM Physical Exam Const Vital Signs: 12/07/23 14:45 12/07/23 16:44 12/07/23 16:47 Temperature 98 F Temperature Source Temporal Pulse Rate 77 Respiratory Rate 16 Respiratory Depth Normal Respiratory Pattern Normal Blood Pressure 181/86 H Blood Pressure Mean 117 Pulse Ox 100 Oxygen Delivery Method Room Air Room Air 12/07/23 17:49 Temperature Temperature Source Pulse Rate 66 Respiratory Rate 20 H Respiratory Depth Respiratory Pattern Blood Pressure 133/64 H Blood Pressure Mean 87 Pulse Ox 100 Oxygen Delivery Method Room Air Positive well nourished and well developed General Appearance ED: well developed and NAD HEENT Reports moist mucous membranes Neck supple and no JVD Resp normal respiratory effort and clear to auscultation bilaterally Cardio regular rate and regular rhythm GI non-tender and non-distended Palpation: soft Neuro oriented x3, CN's II-XII intact bilaterally and no sensory deficits noted Herndon Coma Scale: document GCS findings Spontaneous Obeys Commands Oriented 15 Sensorium / Orientation: alert Motor Exam: strength 5/5 throughout Psych mental status grossly normal MDM MDM MDM Narrative Medical decision making narrative: Differential diagnosis includes cardiac dysrhythmia, cardiac ischemia, electrolyte abnormality, pulmonary embolism, pneumonia, pneumothorax, and musculoskeletal pain. EKG will be obtained to assess for cardiac dysrhythmia and cardiac ischemia. Chest x-ray will be obtained to assess for pneumonia and pneumothorax. CBC will be obtained to assess for leukocytosis and anemia. Basic metabolic profile will be obtained to assess for electrolyte abnormality and renal function. High-sensitivity troponin will be obtained to assess for cardiac ischemia. PT with INR will be obtained to assess for coagulopathy. D-dimer will be obtained to assess for pulmonary embolism. Lab Data Attestation: I reviewed the patient's lab results. Lab results narrative: CBC was reviewed. There is a mild anemia with a hemoglobin of 11.3 and hematocrit 36.8. Basic metabolic profile was reviewed and was within normal limits. PT with INR was reviewed and was within normal limits. D-dimer was reviewed and was elevated at 0.82. Basic metabolic profile was reviewed and was within normal limits. High-sensitivity troponin was reviewed and was normal at 38. Labs: Laboratory Results - last 24 hr 12/07/23 15:40 WBC 8.2 RBC 4.26 Hgb 11.3 L Hct 36.8 L MCV 86.4 MCH 26.5 L MCHC 30.7 L RDW Std Deviation 46.9 H RDW Coeff of Karly 14.9 H Plt Count 246 MPV 11.3 Immature Gran % (Auto) 0.200 Neut % (Auto) 69.3 Lymph % (Auto) 21.8 Banks % (Auto) 5.6 Eos % (Auto) 2.7 Baso % (Auto) 0.4 Absolute Neuts (auto) 5.6 Absolute Lymphs (auto) 1.78 Nucleated RBC % 0 PT 14.0 INR 1.1 D-Dimer Quant (PE/DVT) 0.82 H* Sodium 138 Potassium 4.0 Chloride 106 Carbon Dioxide 29.0 Anion Gap 3 L BUN 13 Creatinine 0.64 Est GFR (MDRD) Af Amer 134 Est GFR (MDRD) Non-Af 111 BUN/Creatinine Ratio 20.5 H Glucose 110 H Calcium 9.1 Troponin I High Sens 38 Radiography CTA PE Study: No Evidence of PE and No Evidence of Dissection Diagnostic Testing: Clinical Impression(s) from Imaging Studies Chest CTA 12/07/23 18:11 IMPRESSION: Normal CTA chest examination, without a demonstrated pulmonary embolism or arterial dissection. Electronically Signed: Cain Schaffer MD at 19:23 EDT , CTA of the chest was obtained. There is no evidence of pulmonary embolism or aortic dissection. This was interpreted by the radiologist and was also independently reviewed by myself. EKG Initial EKG: Attestation: I personally reviewed and interpreted this EKG as follows: Interpretation: Sinus Rhythm (63) and No Acute Injury Pattern Comments: EKG was obtained. On my independent interpretation, it showed a normal sinus rhythm with a rate of 63. LA interval, QRS interval, and QTc intervals were all normal. [place] was normal. There are no acute ST or T wave changes. Prior EKG tracings: available for review Prior: Unchanged (02/14/2020) Treatment and Re-Evaluation :: Patient was given aspirin here. Patient was given a DuoNeb aerosol. Patient was advised of her findings. Patient was instructed to follow-up with her primary care physician in 5 to 7 days for further evaluation. Patient understood and was agreeable with the plan. All questions were answered. Discharge Plan Triage Chief Complaint: Shortness of Breath ED Provider: Ismael Coleman Dx/Rx/DC Orders Clinical Impression: Dyspnea, Obesity, Hypertension Instructions: ED Dyspnea Prescriptions: No Action fluoxetine 20 MG capsule 20 mg PO DAILY bupropion HCl [Wellbutrin XL] 150 MG tablet extended release 24 hr 150 mg PO DAILY ferrous sulfate 325 MG tablet 325 mg PO BIDCM Patient Comments: iron supplement acetaminophen [Tylenol] 325 MG tablet 500 mg PO Q6H PRN PRN (Reason: Mild Pain (1-3)/Temp > 100.7 F) 0RF omeprazole 20 MG capsule 20 mg PO DAILY Primary Care Provider: Addy Ugalde Referrals: Addy Ugalde MD [Primary Care Provider] - 5-7 Days Print Language: St Helen[place] Disposition Disposition: Home, Self Care
--- NOTE | 2023-12-07 16:57 | EKG12_ITS ---
Test Reason : Blood Pressure : / mmHG Vent. Rate : 063 BPM Atrial Rate : 063 BPM P-R Int : 134 ms QRS Dur : 088 ms QT Int : 398 ms P-R-T Axes : -03 048 030 degrees QTc Int : 407 ms Normal sinus rhythm Normal ECG Confirmed by FATUMA GRANT, SHABANA ([id number]), assistant film editor ZOHRA SHARMA ([id number]) on 12/10/2023 6:38:35 AM Referred By: Confirmed By:ALEENA BURRIS MD
[2023-12-07 17:23] LABS: Troponin-I HS 38 pg/mL (3.0-54.0)
[2023-12-07 17:24] LABS: D-Dimer Quantitative (DVT/PE) 0.82 FEU/ug/m (0.27-0.49)
[2023-12-07] MEDS: Aspirin 81 MG TAB.CHEW 324 MG PO (17:34)
[2023-12-07 17:49] VITALS: BP 133/64; PULSE 66; RESP 20; O2SAT 100
[2023-12-07 17:59] VITALS: BMI 77.5
[2023-12-07 18:00] VITALS: BMI 77.5
--- NOTE | 2023-12-07 18:11 | CT_ITS ---
STUDY: CTA CHEST REASON FOR EXAM: Female, 38 years old. Elevated D-dimer RADIATION DOSAGE (If Supplied By Facility): CTDIvol = ( 18.60 ) mGy, DLP = ( 573.10 ) mGycm TECHNIQUE: The examination was performed with the intravenous administration of IV 100mL Isovue-370. Post-processing of the angiographic images was performed, with multiplanar reformation and 3D reconstruction. Individualized dose optimization techniques were used for this CT. COMPARISON: February 14, 2020 FINDINGS: Normal enhancement of the main pulmonary artery and right and left pulmonary arteries. There is limited enhancement of the bilateral peripheral pulmonary arteries. There is no demonstrated pulmonary embolism. Normal thoracic aorta and visualized great vessels. There is no demonstrated aortic dissection. Normal heart and pericardium. Normal mediastinum. Normal hilar regions. Normal visualized trachea and bronchi. The lungs are well expanded. Normal pulmonary parenchyma. Normal pleura. Normal chest wall structures. There is degenerative change of the spine. Normal visualized upper abdomen. CT/CTA Chest W/WO Contrast IMPRESSION: Normal CTA chest examination, without a demonstrated pulmonary embolism or arterial dissection. Electronically Signed: Cain Schaffer MD at 19:23 EDT ,
[2023-12-07 19:33] VITALS: PULSE 70; RESP 18
[2023-12-07] MEDS: Ipratropium/Albuterol Sulfate 3 ML AMPUL.NEB INHALATION (19:33)
[2023-12-07 20:00] VITALS: BP 150/76; PULSE 72; RESP 18; O2SAT 100
[2023-12-07 20:06] VITALS: BP 150/76; PULSE 75; RESP 18; TEMP 36.9; O2SAT 100
== END 2023-12-07 20:09 | disposition home or self-care (01) ==
PROVIDERS: Emergency Provider Emergency Medicine; PCP Family Medicine; Visit Provider Emergency Medicine
DX: R06.02 Shortness of breath (principal); M54.9 Dorsalgia, unspecified; I10 Essential (primary) hypertension; E66.9 Obesity, unspecified; Z86.711 Personal history of pulmonary embolism; R07.9 Chest pain, unspecified
CPT/HCPCS: 71275; 80048; 84484; 85025; 85379; 85610; 93005; 94640; 99283; Q9967